=== PATIENT | male | born 1930 | race Caucasian/White ===

== ENCOUNTER 2017-01-17 18:06 | Emergency (ER) | payer OTHER ==
[~2017-01-17] VITALS: Ht 172.7 cm; Wt 63.5 kg
[~2017-01-17 18:06] MED LIST: ALLOPURINOL300 MG PO; B-125000 MC2 PO; FLOVENT HFA12 GM INH; FLUDROCORTISON0.1 MG PO; FUROSEMIDE40 MG PO; KLOR-CON 1010 MEQ PO; LIPITOR40 MG PO; MAGNESIUM400 M1 PO; METOPROLOL SUCC25 MG PO; NITROSTAT0.4 MG SL; PRESERVISION L1 EACH PO; VENTOLIN HFA18 GM INH; VITAMIN D32000 UNIT PO; XARELTO20 MG PO
== END 2017-01-17 20:02 | disposition home or self-care (01) ==
LOC: ED 18:06
DX: K40.90 Unilateral inguinal hernia, without obstruction or gangrene, not specified as recurrent (principal); I25.2 Old myocardial infarction; I48.91 Unspecified atrial fibrillation; J44.9 Chronic obstructive pulmonary disease, unspecified; Z79.899 Other long term (current) drug therapy; Z79.51 Long term (current) use of inhaled steroids
CPT/HCPCS: 99283

== ENCOUNTER 2017-03-02 05:45 | Day surgery (SDC) | payer OTHER ==
[~2017-03-02] VITALS: Ht 170.2 cm; Wt 63.5 kg
[2017-03-02] MEDS ORDERED: MAPAP325 MG PO (09:04)
[2017-03-02] MEDS ORDERED: HYDROCODON-ACE1 EA10 PO (09:05)
--- NOTE | 2017-03-07 12:15 | OR ---
[facility] [address] [place], [place] [address] Signed DATE OF PROCEDURE: 03/02/17 PREOPERATIVE DIAGNOSES Reducible right inguinal hernia (severely symptomatic). Severe cardiac dysfunction including atrial fibrillation. POSTOPERATIVE DIAGNOSIS Right inguinal hernia (indirect with attenuation of floor). PROCEDURE PERFORMED Repair of right inguinal hernia including excision of high ligation of sac and implantation of Prolene mesh (underlay technique). SURGEON: Dahlia Nieves MD. ANESTHESIA General endotracheal (Thang Gonzalez CRNA) and local 20 mL of 0.25% Marcaine with epinephrine. INDICATION This 87-year-old white man is recently here from [place], [place] whose primary care provider is Dillan Edwards D.O. in [place], [place] and deputy program manager, Eddie Helms in [place], [place]. The patient has developed a very significant right inguinal hernia, which is very symptomatic to him. He was seen on an urgent walk-in basis on January 25, 2017. Hernia was found to be reducible and a fair amount of his severe symptoms had resolved. He does not have typical urinary outlet obstructive symptoms though has in the past. The patient has exercise related angina, at least 2 episodes a month for which he takes nitroglycerin. He also has chronically anticoagulated with Xarelto for history of atrial fibrillation. He has undergone a preoperative anesthesia evaluation anticipating right inguinal hernia repair. A copy of an echocardiogram performed at [facility] in [place], [place] from November 18, 2016, was reviewed, which did show moderate concentric left ventricular hypertrophy and a left ventricular ejection fraction of only 20%. There was global hypokinesis of the left ventricle as well. The left and right atria were dilated also. Gi denver the patient's symptomatic hernia, consideration has been made for repair mindful of increased risk of the operation. He has undergone preoperative anesthesia evaluation and was deemed most appropriate to use general anesthesia rather than regional one considering the hypotensive effect of a regional anesthetic. He and his understand Electronically Signed By: DAHLIA NIEVES MD 03/07/17 1215 PATIENT NAME: HUSSAIN GONZALEZ OPERATIVE REPORT DATE OF : [birth year] PHYSICIAN: DAHLIA NIEVES MD REPORT #: [id number] REPORT IS CONFIDENTIAL AND NOT TO BE RELEASED WITHOUT AUTHORIZATION [address] [address] Signed well the risks of bleeding, infection, recurrent hernia, and more importantly cardiovascular problems related to hernia repair. Understand this they wish to proceed. FINDINGS Induction and maintenance of anesthesia during the operation went without incident. He was found to have a moderate-sized indirect hernia sac without a sliding component or incarcerated viscus as well as attenuation of the floor. The operation consisted of high ligation and excision of the sac as well as implantation of Prolene mesh in an underlay technique in the floor. DESCRIPTION OF PROCEDURE The patient was brought to the operating room, given a general endotracheal anesthetic. Preoperative antibiotic Ancef was given. Sequential compression device stockings were used. Preoperative subcutaneous heparin was administered. Notably, he has been off his Xarelto for 48 hours. The lower abdomen and groin were clipped and prepared with a Chlorhexidine solution and draped sterilely. An incision was made cephalad to the pubic tubercle and dissection carried through the subcutaneous tissue with electrocautery. The external oblique was incised along its fibers, opening the external ring. The external oblique fascia was dissected free from the cord and ilioinguinal nerve within the cremasteric muscle fibers of the cord was dissected free and reflected inferiorly around the external oblique protecting it from harm. The cord was mobilized from the floor with blunt and electrocautery dissection and encircled with a [place] drain. Using blunt dissection, the hernia sac was identified in the medial aspect of the cord, it was dissected free from the cord structures with meticulous care, ultimately isolated at its neck. It was opened and found to have no sign of sliding component or incarcerated viscus. Two 0 silk suture was used to ligate the neck of the hernia sac doubly applied and hernia sac amputated and passed for pathology. The floor of the inguinal canal was attenuated. An Allis clamp was applied to the tendon of the transversus abdominis. Using electrocautery, the floor was incised and using blunt dissection the properitoneal fat was free. A segment of Prolene mesh was cut to the appropriate configuration and secured in an underlay technique with interrupted 2-0 Prolene sutures. A defect was cut in the graft to accommodate the cord and the tails of the graft were secured laterally taking special care to avoid incorporation of the ilioinguinal nerve or other important structures. A 20 mL of 0.25% Marcaine with epinephrine was injected locally. The cord was replaced into the canal as was the ilioinguinal nerve. The external oblique was reapproximated with running 2-0 Vicryl suture. Cirilo's layer was reapproximated with interrupted 2-0 Vicryl and skin closed with running subcuticular 3-0 Vicryl. Steri-Strips were applied as was a Mepilex silver sponge dressing and an OpSite. The patient was allowed to emerge from anesthesia, was extubated and transferred to recovery room in good condition, Electronically Signed By: DAHLIA NIEVES MD 03/07/17 1215 PATIENT NAME: HUSSAIN GONZALEZ OPERATIVE REPORT DATE OF : [birth year] PHYSICIAN: DAHLIA NIEVES MD REPORT #: [id number] REPORT IS CONFIDENTIAL AND NOT TO BE RELEASED WITHOUT AUTHORIZATION [address] [place] [address] Signed having suffered no known complications. Sponge, needle, and instrument counts reported as correct x3. MD NELDA Coles/Rico /[id number] cc: Eddie Helms M.D. [address] [facility] [address] [place] [address] Dillan Edwards D.O. [address] [place] [address] Electronically Signed By: DAHLIA NIEVES MD 03/07/17 1215 PATIENT NAME: HUSSAIN GONZALEZ OPERATIVE REPORT DATE OF : [birth year] PHYSICIAN: DAHLIA NIEVES MD REPORT #: [id number] REPORT IS CONFIDENTIAL AND NOT TO BE RELEASED WITHOUT AUTHORIZATION
== END 2017-03-02 12:45 | disposition home or self-care (01) ==
LOC: DS 05:45
PROVIDERS: Surgery
PROC: 0YU50JZ Supplement Right Inguinal Region with Synthetic Substitute, Open Approach (ICD-10-PCS; principal; 2017-03-02 06:45)
DX: K40.90 Unilateral inguinal hernia, without obstruction or gangrene, not specified as recurrent (principal); J44.9 Chronic obstructive pulmonary disease, unspecified; M10.9 Gout, unspecified; I50.9 Heart failure, unspecified; I48.2 Chronic atrial fibrillation; N40.1 Benign prostatic hyperplasia with lower urinary tract symptoms; N13.8 Other obstructive and reflux uropathy; F17.210 Nicotine dependence, cigarettes, uncomplicated; Z98.1 Arthrodesis status
CPT/HCPCS: 00830; C1781; J0690; J1644; J2370; J2405; J3010; J7120

== ENCOUNTER 2017-06-21 13:43 | Emergency (ER) | payer OTHER ==
[~2017-06-21] VITALS: Ht 170.2 cm; Wt 63.5 kg
[~2017-06-21 13:43] MED LIST changes: +HYDROCODON-ACE1 EA10 PO; +MAPAP325 MG PO
[2017-06-21] MEDS ORDERED: FLOMAX0.4 MG PO (13:57)
[2017-06-21] MEDS ORDERED: XARELTO20 MG PO (13:58)
[2017-06-21] MEDS ORDERED: LASIX40 MG PO (15:27)
[2017-06-21] MEDS ORDERED: K-TAB ER20 MEQ PO (15:28)
--- NOTE | 2017-06-22 21:45 | EKG ---
[facility] [address] [facility] [place] [address] Signed Sinus rhythm with 1st degree AV block Left axis deviation Nonspecific intraventricular block Abnormal ECG When compared with ECG of 15-FEB-2017 13:02, No significant change was found Confirmed by KEVEN LOCO MD ([id number]) on 06/22/2017 9:44:54 PM Electronically Signed By: KEVEN LOCO MD 06/22/17 2145 PATIENT NAME: HUSSAIN GONZALEZ Electrocardiogram DATE OF : [birth year] PHYSICIAN: KEVEN LOCO MD REPORT #: [id number] REPORT IS CONFIDENTIAL AND NOT TO BE RELEASED WITHOUT AUTHORIZATION
== END 2017-06-21 15:42 | disposition home or self-care (01) ==
LOC: ED 13:43
DX: I50.9 Heart failure, unspecified (principal); J44.9 Chronic obstructive pulmonary disease, unspecified; I25.2 Old myocardial infarction; I48.91 Unspecified atrial fibrillation; F17.200 Nicotine dependence, unspecified, uncomplicated; Z95.5 Presence of coronary angioplasty implant and graft; Z98.890 Other specified postprocedural states; Z79.01 Long term (current) use of anticoagulants; Z79.899 Other long term (current) drug therapy
CPT/HCPCS: 71010; 80053; 83735; 83880; 84484; 85025; 93005; 93010; 96374; 99283

== ENCOUNTER 2017-07-30 08:16 | Inpatient (IN) | payer MEDICARE ==
[~2017-07-30] VITALS: Ht 170.2 cm; Wt 65.5 kg
[~2017-07-30 08:16] MED LIST changes: +FLOMAX0.4 MG PO; +K-TAB ER20 MEQ PO; +LASIX40 MG PO; +LIPITOR20 MG PO
--- NOTE | 2017-07-30 13:00 | NUR ---
PT TRANSFERED TO MED/SURG. PT STAND PIVOT TO BED. PT ON 2L NC, O2 SATS 98%, WENAED TO 1L, LUNG SOUNDS WITH EXPIRATORY WHEEZE TO LEFT LOBES AND COARSE CRACKLES TO RIGHT LOBES. PT DENIES PAIN. PT NPO CURRENTLY FOR ECHO. PT WITH IV ACCESS TO RIGHT FOREARM, SALINE LOCKED. PT ON TELEMETRY #5, SINUS RHYTHM, HEART MURMUR NOTED. PT WITHOUT EDEMA, CMS INTACT. DUST COLLECTOR ORE CRUSHING AT BEDSIDE. PT DENIES NEEDS AT THIS TIME. ADMISSION INTAKE COMPLETED.
--- NOTE | 2017-07-30 15:30 | NUR ---
PT ASSISTED TO BATHROOM AND BACK TO BED. PT VOIDING WITHOUT DIFFICULTY. PT DENIES NEEDS AT THIS TIME. FAMILY AT BEDSIDE.
--- NOTE | 2017-07-30 15:55 | NUR ---
PT IS RESTING IN BED AND VISITING WITH FAMILY. PT HAS NO NEEDS AT THIS TIME. CALL LIGHT IS IN REACH.
--- NOTE | 2017-07-30 16:57 | NUR ---
PT ASSISTED TO BATHROOM AND BACK TO BED. PT ON 1L NC, LUNG SOUNDS WITH CRACKLES TO BASES, EXPIRATORY WHEEZE TO LEFT UPPER LOBE. PT ITHOUT EDEMA TO BLE. PT TOLERATING CARDIAC DIET, DENIES NAUSEA. PT DENIES OTHER NEEDS AT THIS TIME.
[2017-07-30] MEDS ORDERED: TYLENOL EXTRA500 MG PO (17:01)
[2017-07-30] MEDS ORDERED: CITRUCEL500 MG PO (17:06)
[2017-07-30] MEDS ORDERED: VITAMIN C1000 MG PO (17:07)
--- NOTE | 2017-07-30 17:38 | NUR ---
PT ADMITTED THIS AFTERNOON FROM ED. PT WEANED TO ROOM AIR, LUNG SOUNDS WITH CRACKLES AND WHEEZES. PT GIVEN IV LASIX, GOOD URINE OUTPUT. PT TOLERATING CARDIAC DIET, FLUID RESTRICTION. PT UP WITH 1PA TO BATHROOM, CALLING APPROPRIATLEY. SALINE LOCKED.
--- NOTE | 2017-07-30 19:10 | NUR ---
SHIFT REPORT RECIEVED. PATIENT RESTING IN BED WATCHING TV. HE DENIES NEEDS AT THIS TIME. HE AGREES TO CALL FOR ASSISTANCE IF HE NEEDS TO GET UP. CALL LIGHT IN REACH.
--- NOTE | 2017-07-30 21:39 | EKG ---
[facility] [address] [facility] [place] [address] Signed Normal sinus rhythm with sinus arrhythmia Right superior axis deviation Nonspecific intraventricular block Abnormal ECG When compared with ECG of 21-JUN-2017 13:45, TX interval has decreased Confirmed by AMIRA HUTCHINSON MD ([id number]) on 07/30/2017 9:39:05 PM Electronically Signed By: AMIRA HUTCHINSON MD 07/30/17 2139 PATIENT NAME: HUSSAIN GONZALEZ Electrocardiogram DATE OF : [birth year] PHYSICIAN: AMIRA HUTCHINSON MD REPORT #: [id number] REPORT IS CONFIDENTIAL AND NOT TO BE RELEASED WITHOUT AUTHORIZATION
--- NOTE | 2017-07-30 21:45 | NUR ---
EVENING MEDS GIVEN PER ORDER. PATIENT RESTING IN BED WATCHING TV. DENIES PAIN OR NAUSEA. NO SOB. 2L NC, O2 SAT 98%. LUNGS HAVE EXPIRTORY WHEEZE THROUGHOUT, SLIGHTLY DIMINISHED IN THE BASES. PATIENT HAS A COUGH, REQUEST PRN MUCINEX WHICH WAS GIVEN. ABD IS ROUND, SOFT, NONTENDER WITH ACTIVE BOWEL SOUNDS. LAST REPORTS BM YESTERDAY. CMS INTACT. SKIN IS GROSSLY INTACT, BUT DRY. LOTION APPLIED. PATIENT REQUESTING SNACKS, WHICH WERE PROVIDED. NO OTHER NEEDS AT THIS TIME. PATIENT AGREES TO CALL FOR ASSISTANCE PRIOR TO EXITING THE BED. CALL LIGHT IN REACH.
--- NOTE | 2017-07-30 23:15 | NUR ---
PATIENT REQUESTING MORE SNACKS. GRAM CRACKERS PROVIDED PER [employer]. SHREE SEPTEMBER ASSISTED THE PATIENT.
--- NOTE | 2017-07-31 02:11 | NUR ---
HELPED PT TO THE BATHROOM AND BACK TO BED.O2 PUT BACK ON AND CALL LIGHT GIVEN BEDSIDE TABLE WITHIN REACH.
--- NOTE | 2017-07-31 02:20 | NUR ---
PATIENT RESTING IN BED. LAYING ON LEFT SIDE. BREATHING IS REGULAR AND NONLABORED. RIGHT LOBES ARE CLEAR, DIMINISHED LEFT LOBES. 2L NC, O2 SAT 94%. CALL LIGHT IN REACH.
--- NOTE | 2017-07-31 06:53 | NUR ---
PATIENT UP TO BATHROOM. MORNING VS COMPLETE. PATIENT WAS SLEEPING WITH NC NOT IN HIS NOSE. O2 SAT 92%. PLACED NC BACK IN NOSE, 1L. PATIENT DENIES PAIN. EXPIRTORY WHEEZE HEARD THROUGHOUT LUNGS. NO NAUSEA. BREAKFAST ORDER RECIEVED. MORNING WEIGHT PERFORMED. NO OTHER NEEDS AT THIS TIME.
--- NOTE | 2017-07-31 06:58 | NUR ---
PATIENT RESTED WELL THROUGHOUT THE NIGHT. SBA TO BATHROOM. 1500ML FLUID RESTRICTION. PATIENT DENIES PAIN OR NAUSEA. 1-2L NC. LUNGS HAVE EXPIRTORY WHEEZE THROUGHOUT. ENCOURAGED DEEP BREATH AND COUGH, IS. TELE #5 IN USE.
--- NOTE | 2017-07-31 07:00 | NUR ---
BEDSIDE HANDOFF REPORT RECEIVED FROM SPA TECHNICIAN RN. PT RESTING IN BED. PT DENIES NEEDS AT THIS TIME. DISCUSSED PLAN OF CARE AND INCREASED ACTIVITY TODAY.
--- NOTE | 2017-07-31 07:05 | NUR ---
BEDSIDE HANDOFF REPORT RECEIVED FROM CHIEF WHEELAGE CLERK RN. PT SLEEPING, LEFT UNDISTURBED.
--- NOTE | 2017-07-31 08:30 | NUR ---
PT RESTING IN BED, EATING BREAKFAST. PT ON 2L NC, LUNG OUNDS WITH EXPIRATORY WHEEZE, COARSE CRACKLES TO RIGHT LOWER. PT TOLERATING CARDIAC DIET, 1500 ML FLUID RESTRICTION, DENIES NAUSEA. CMS INTACT, WITHOUT EDEMA, PULSES PALPABLE. BOWEL TONES ACTIVE. PT ON TELE #5, SINUS RHYTHM. DISCUSSED PLAN OF CARE FOR THE DAY. RESPIRATORY THERAPY TO BEDSIDE FOR TREATMENT. PT DENIES OTHER NEEDS AT THIS TIME.
--- NOTE | 2017-07-31 12:15 | NUR ---
PT RESTING IN BED, EATING LUNCH. PT LUNG SOUNDS WITH COARSE CRACKLES TO BASES, EXPIRATORY WHEEZE TO RIGHT LOWER LOBE. IV LASIX GIVEN. PT INDEPENDENT IN ROOM. NO ACUTE CHANGES. PT DENIES NEEDS AT THIS TIME.
--- NOTE | 2017-07-31 18:25 | NUR ---
PT ON 2L NC, LUNG SOUNDS WITH EXPIRATORY WHEEZE, COARSE CRACKLES, PT RECEIVING BID NEBS. PT GIVEN 20 MG IV LASIX X2, URINE OUTPUT QS. PT TOLERATING CARDIAC DIET, 1500 ML FLUID RESTRICTION, TOLERATING WELL. PT DENIES PAIN. CMS INTACT, WITHOUT EDEMA. NEW IV STARTED TO LEFT FOREARM. PT UP INDEPENDENTLY IN ROOM. DAILY WEIGHT.
--- NOTE | 2017-07-31 19:07 | NUR ---
RECEIVED REPORT FROM RN. PATIENT RESTING COMFORTABLY IN BED, BREATHING IS EVEN AND UNLABORED ON 2L O2 VIA NC. DENIES NEEDS AT THIS TIME. CALL LIGHT WITHIN REACH.
--- NOTE | 2017-07-31 21:01 | NUR ---
PATIENT RESTING COMFORTABLY IN BED, BREATHING IS EVEN AND UNLABORED ON 1L O2 VIA NC. PATIENT DENIES NEEDS AT THIS TIME. ASSESSMENT DONE, MEDICATIONS GIVEN. CALL LIGHT WITHIN REACH.
--- NOTE | 2017-07-31 23:09 | NUR ---
PATIENT RESTING COMFORTABLY IN BED, BREATHING IS EVEN AND UNLABORED. CALL LIGHT WITHIN REACH.
--- NOTE | 2017-08-01 00:27 | NUR ---
PATIENT SITTING ON EDGE OF BED AND STATES "I CAN'T SLEEP." HE STATES THAT HE FEELS HUNGRY. PROVIDED LOW SODIUM SOUP. DENIES FURTHER NEEDS. CALL LIGHT WITHIN REACH.
--- NOTE | 2017-08-01 01:30 | NUR ---
PATIENT REPORTS DIFFICULTY BREATHING. UPON ENTERING ROOM, PATIENT IS LAYING SUPINE IN BED. EXPIRATORY AND INSPIRATORY WHEEZES HEARD THROUGHOUT ALL LUNG CRONIN, O2 SATURATION IS 90% ON 1L O2 VIA NC. PRN ALBUTEROL TREATMENT ADMINISTERED, HEAD OF BED ELEVATED. PATIENT IS NOW RESTING COMFORTABLY IN BED, BREATHING IS EVEN, RESPIRATORY RATE IS 22. PATIENT STATES "I FEEL A LITTLE BETTER NOW. THAT TREATMENT SEAMED TO HELP." EDUCATED PATIENT ABOUT SLEEPING WITH HEAD OF BED ELEVATED FOR BREATHING COMFORT. DENIES FURTHER NEEDS. ASSESSMENT AND VITALS DONE. CALL LIGHT WITHIN REACH.
--- NOTE | 2017-08-01 03:39 | NUR ---
PATIENT RESTING COMFORTABLY IN BED, BREATHING IS EVEN AND UNLABORED ON 1L O2 VIA NC. PATIENT STATES "I AM HAVING A HARD TIME SLEEPING. THIS HAS BEEN GOING ON FOR A LITTLE OVER A YEAR NOW. I TAKE LONG NAPS DURING THE DAY AND THAT SEEMS TO WORK FOR ME." DENIES NEED FOR EAR PLUGS, EYE MASK, OR WHITE NOISE MACHINE. DENIES NEEDS AT THIS TIME. CALL LIGHT WITHIN REACH.
--- NOTE | 2017-08-01 04:37 | NUR ---
PATIENT'S NIGHT WAS UNEVENTFUL. HE HAS BEEN RESTING OFF AND ON THROUGHOUT SHIFT. VSS, URINE OUTPUT QS. NO COMPLAINTS OF PAIN. PATIENT BECOMES SHORT OF BREATH EASILY AND REQUIRED 1 PRN ALBUTEROL TREATMENT, WHICH HE RESPONDED WELL TO. TITRATED O2 TO 1L AT BEGINNING OF SHIFT, HE HAS TOLERATED THIS TITRATION WELL WITH O2 SATURATION REMAINING BETWEEN 90 AND 92%. LUNGS HAVE EXPIRATORY AND INSPIRATORY WHEEZES, NO CRACKLES NOTED THIS SHIFT. NO EDEMA IN EXTREMITIES. NO ACUTE CHANGES FROM BEGINNING OF SHIFT.
--- NOTE | 2017-08-01 06:15 | NUR ---
PATIENT RESTING COMFORTABLY IN BED, BREATHING IS EVEN AND UNLABORED. DENIES NEEDS AT THIS TIME. ASSESSMENT DONE. CALL LIGHT WITHIN REACH.
--- NOTE | 2017-08-01 07:15 | NUR ---
BEDSIDE HANDOFF REPORT RECEIVED FROM JAVA J2EE LEAD RN. PT SLEEPING LEFT UNDISTURBED.
--- NOTE | 2017-08-01 08:19 | NUR ---
PT RESTING IN BED. PT WITH GOOD APPETITE, ATE 100% OF BREAKFAST. PT WITH COUGHING FIT, PRODUCTIVE COUGH, LUNG SOUNDS WITH EXPIRATORY WHEEZE AND COARSE CRACKLES THROUGHOUT, ON 1L NC, O2 SATS 96%, RT TO BEDSIDE FOR NEBS, PT GIVEN MUCINEX. PT DENIES PAIN. BOWEL TONES ACTIVE. PT PROVIDED WITH WATER, 1500 ML FLUID RESTRICTION. IV FLUSHED, PATENT, IV LASIX GIVEN. NICOTINE PATCH PLACED TO LEFT ARM. PT WITHOUT EDEMA, CMS INATCT. DISCUSSED PLAN OF CARE WITH PT, ENCOURAGED OOB ACTIVITY, WALKING IN [place], ATTEMPTING TO WEAN O2. PT DENIES OTHER NEEDS AT THIS TIME.
--- NOTE | 2017-08-01 11:15 | NUR ---
PT ASSISTED TO WALK IN [place]. PT ABLE TO AMBULTE APPROXIMATELY 100 FEET BEFORE TIRING. PT ASSISTED BACK TO BED. PT DENIES OTHER NEEDS AT THIS TIME. PT PROVIDED EDUCATION ON CHF, DISCUSSED WHY EDEMA HAPPENS.
--- NOTE | 2017-08-01 13:14 | NUR ---
PT SITTING ON EDGE OF BED. FAMILY AT BEDSIDE. IV FLUSHED, IV LASIX GIVEN. PT DENIES OTHER NEEDS AT THIS TIME.
--- NOTE | 2017-08-01 13:33 | NUR ---
PT'S VS AND I&O'S TAKEN AND DOCUMENTED. PT IS RELAXING IN BED WATCHING TV. PT HAS NO OTHER NEEDS AT THIS TIME. INFORMED PT TO CALL IF HE THINKS OF ANYTHING. CALL LIGHT IS IN REACH.
--- NOTE | 2017-08-01 14:10 | NUR ---
PT RESTING IN BED, NAPPING. LUNG SOUNDS WITH EXPIRATORY WHEEZE THROUGHOUT, PT ON 3L NC, PT DOES NOT APPEAR TO BE IN RESP DISTRESS. BOWLE TONES ACTIVE, TOLERATING FLUID RESTRICTION. PT WITHOUT EDEMA. NO ACUTE CHANGES. PT ALLOWED TO REST, DENIES OTHER NEEDS AT THIS TIME.
--- NOTE | 2017-08-01 14:31 | NUR ---
PT ON 3L NC, O2 SATS 94% WEANED TO 1L NC. PT RESTIGN COMFORTABLY IN BED. DENIES OTHER NEEDS AT THIS TIME.
--- NOTE | 2017-08-01 15:51 | NUR ---
PT RESTING IN BED. PT O2 SATS 95% ON ROOM AIR, PLACED BACK ON 1L NC, O2 SATS UP TO 91%. PT DENIES NEEDS AT THIS TIME.
--- NOTE | 2017-08-01 17:16 | NUR ---
ATTEMPTED TO WEAN TO ROOM AIR, DESATS TO MID 80'S, 1L NC, LUNG SOUNDS WITH COARSE CRACKLES THIS MORNING, EXPIRATORY WHEEZE THIS EVENING. PT WALKED IN THE [place] TWICE, SHORT DISTANCES. PT TOLERATING CARDIAC DIET, FOLLWOING 1500 ML FLUID RESTRICTION. PT DENIES PAIN. TESSALON PERLES AND MUCINEX FOR COUGH, QID NEBS. PT UP INDEPENDENT IN ROOM. IV LASIX GIVEN X2, VOIDING QS.
--- NOTE | 2017-08-01 17:47 | NUR ---
PT'S VS AND I&O'S TAKEN AND DOCUMENTED. PT IS RESTING IN BED WATCHING TV. PT HAS NO NEEDS AT THIS TIME. PT AWARE TO CALL IF HE NEEDS ANYTHING. CALL LIGHT IS IN REACH.
--- NOTE | 2017-08-01 20:07 | NUR ---
Watching tv, O2 1L NC, no c/o resp distress, no requests, no c/o pain. Independent. Coop with assessment
--- NOTE | 2017-08-01 22:50 | NUR ---
RECEIVED REPORT FROM ASHLEY BELLE.
--- NOTE | 2017-08-01 23:12 | NUR ---
PATIENT RESTING COMFORTABLY IN BED, BREATHING IS EVEN AND UNLABORED ON 1L O2 VIA NC. DENIES NEEDS AT THIS TIME. CALL LIGHT WITHIN REACH.
--- NOTE | 2017-08-02 00:17 | NUR ---
PATIENT RESTING COMFORTABLY IN BED, BREATHING IS EVEN AND UNLABORED. CALL LIGHT WITHIN REACH.
--- NOTE | 2017-08-02 02:00 | NUR ---
PATIENT RESTING COMFORTABLY IN BED, BREATHING IS EVEN AND UNLABORED. CALL LIGHT WITHIN REACH.
--- NOTE | 2017-08-02 03:55 | NUR ---
PATIENT RESTING COMFORTABLY IN BED, BREATHING IS EVEN AND UNLABORED. CALL LIGHT WITHIN REACH.
--- NOTE | 2017-08-02 05:47 | NUR ---
PATIENT RESTING COMFORTABLY IN BED, BREATHING IS EVEN AND UNLABORED ON 1L O2. DENIES NEEDS AT THIS TIME. CALL LIGHT WITHIN REACH.
--- NOTE | 2017-08-02 06:59 | NUR ---
PATIENT'S NIGHT WAS UNEVENTFUL. HE HAS BEEN RESTING THROUGHOUT SHIFT. VSS, URINE OUTPUT QS, NO COMPLAINTS OF PAIN. LUNGS HAVE EXP. WHEEZES THROUGHOUT, WEARS 1L O2 AT NIGHT. HAS NOT HAD BM SINCE 07/28/17, NIO BOWEL ROUTINE INITIATED. IND. IN ROOM. NO ACUTE CHANGES.
--- NOTE | 2017-08-02 07:50 | NUR ---
SALES EXEC IN ROOM WITH PATIENT. PATIENT SITTING ON EDGE OF BED EATING BREAKFAST. CALL BUTTON IN REACH. NO OTHER NEEDS AT THIS TIME.
--- NOTE | 2017-08-02 07:52 | NUR ---
BEDIDE RPEORT. PT RESTING IN BED, OXYGEN OFF. PT ALERT TO NURSES AT BEDSIDE. OXYGEN REPLACED ON PT 1L PER .N.C. PT REPORTS HE WOULD LIKE A SHOWER THIS AM AFTER BREAKFAST. NO OTHER REQUESTS THIS AM
--- NOTE | 2017-08-02 09:30 | NUR ---
FINA RESTING IN BED. RN AND SCUBA DIVING INSTRUCTOR IN ROOM TO PASS MEDICATION AND TAKE VITALS. CALL BUTTON IN REACH. FRESH ICE WATER GIVEN. NO OTHER NEEDS AT THIS TIME.
--- NOTE | 2017-08-02 09:44 | NUR ---
MORNING ASSESSMENT DONE AND MEDS PASSED. PT IN BED VISITING WITH FRIEND. PT ADVISED TO USE CALL LIGHT WHEN HE WANTS TO GET UP R/T IV LASIX. PT FINISHED WITH BREAKFAST. PT DENIES PAIN. PT HAS NO FURTHER REQUESTS OR COMPLAINTS AT THIS TIME.
--- NOTE | 2017-08-02 09:55 | NUR ---
PATIENT RESTING IN BED. VISITOR IN ROOM WITH PATIENT. PATIENT DONE WITH BREAKFAST. CALL BUTTON IN REACH. BREAKFAST TRAY REMOVED. NO OTHER NEEDS AT THIS TIME.
--- NOTE | 2017-08-02 11:54 | NUR ---
SOLUMEDROL ORDER PLACED BY . ORDER REVIEWED. SOLUMEDROL GIVEN ORDERED (SEE MAR). PT ASSESSEMENT DONE. PT REPORTS NO PAIN AND STATES HE FEELS "ABOUT THE SAME." PT FINISHED WITH LUNCH. PT WATCHIGN TV. NO REQUESTS OR COMPLAINTS AT THIS TIME.
--- NOTE | 2017-08-02 12:56 | NUR ---
LASIX DUE. GIVEN TO PT ORDERED (SEE MAR). PT SITTING ON THE EDGE OF BED. RT AT BEDSIDE, PERFORMING NEBULIZER AND ROOM AIR TREATMENT. RT PLANS TO TAKE PT FOR A SHORT WALK. PT AND RT ADVISED THAT IV LASIX MAY MAKE PT DIZZY OR LIGHT HEADED. PT VERBALIZES UNDERSTANDING AND STATES HE WILL NOTIFY RT RIGHT AWAY IF HE STARTS TO FEEL DIZZY. AT BEDSIDE.
--- NOTE | 2017-08-02 12:56 | NUR ---
RT IN ROOM WITH PATIENT FOR NEB TREATMENT.
--- NOTE | 2017-08-02 14:32 | NUR ---
CHECKED IN ON PT. PT RESTING WITH EYES CLOSED. CHEST RISE AND SNORING NOTED. BED RAILS UP. CALL LIGHT WITHIN REACH.
--- NOTE | 2017-08-02 14:32 | NUR ---
PATIENT RESTING IN BED WITH EYES CLOSED. PATIENT SEEMED TO BE IN A DEEP SLEEP. THIS BARREL BANDER DID NOT WAKE HIM UP TO SHOWER. CALL BUTTON IN REACH.
--- NOTE | 2017-08-02 14:43 | NUR ---
PT CALL LIGHT ON. PT UP TO RESTROOM. BACK TO BED WITHOUT INCIDENT. VITALS TAKEN. PT STATES NO REQUESTS OR COMPLAINTS AT THIS TIME. BED RAILS UP. CALL LIGHT WITHIN REACH.
--- NOTE | 2017-08-02 15:41 | NUR ---
PT REPORTED NUMBNESS AND DROLLING IN MOUTH. CONSULTED WITH PRIMARY NURSE WHO REPORTED IT WAS A TESLON PERLES HE HELD IN HIS MOUTH TOO LONG. INFORMED THE PT IT WAS NORMAL. PT REPORTS NO OTHER NEEDS AT THIS TIME. CALL LIGHT WITHIN REACH.
--- NOTE | 2017-08-02 16:31 | NUR ---
1600 ASSESSMENT DONE AND MEDICAITONS GIVEN. PT REPORTS THAT HE STILL HAS NOT HAD A BOWEL MOVMENT. PT AGREES TO SUPPOSITORY (GIVEN ORDERED, SEE MAR). PT REPORTS "MY TOUNG IS NUMB BECAUSE I HELD THAT LAST MEDICATION (BENSONATE) IN MY MOUTH INSTEAD OF SWOLLOWING IT." PT ADVISED TO SWOLLOW HIS PILLS RIGHT AWAY THIS TIME. PT MOUTH CHECK. PILLS SWOLLOWED. PT UP TO RESTROOM, PT INCERTS SUPPOSITORY ON HIS OWN. PT BACK TO BED. O2 IN PLACE. BED RAILS UP. CALL LIGHT WITHIN REACH. PT WATCHING TV. MAGAZINES PROVIDED PER PT REQUEST "SO I CAN READ WHEN I'M ON THE TOILET."
--- NOTE | 2017-08-02 17:30 | NUR ---
PT HERE FOR COPD EXACERBATION. PT ON 1L O2 BY NC, FAILED ROOM AIR TEST TODAY. EXPIRATORY WHEEZES NOTED IN ALL FOUR QUADRANTS. IV LASIX GIVEN TODAY X2. NEBULIZER TREATEMENTS GIVEN BY RT ORDERED. VOIDING QUANTITY SUFFICIENT. PT ADHERING TO 1500 FLUID RESTRICTION. LAST BM 07/28. NEW ORDERS FOR SENNA, MIRALAX, AND PRN BISOCODYL SUPPOSITORIES, ALL THREE GIVEN TODAY. SKIN, WNL. PT HX OF AFIB, AND ANGINA, NO ISSUES TODAY.
--- NOTE | 2017-08-02 18:00 | NUR ---
PATIENT RESTING IN BED. OFFERED PATIENT A SHOWER. PATIENT STATED THAT HE WILL WAIT UNTIL TOMORROW BECUASE HE IS WARN OUT. CALL BUTTON IN REACH. NO OTHER NEEDS AT THIS TIME.
--- NOTE | 2017-08-02 18:29 | NUR ---
THIS RN CHECKED IN ON PT. PT FINISHED WITH DINNER. FRIEND AT BEDSIDE (DELIVERED PIE FOR DESSERT). PT STATES HE HAD A BM AT 6:00 ("A BIG ONE"). PT RESTING IN BED, VISITING WITH FRIEND. FORK PROVIDED. NO ADDITIONAL REQUESTS OR COMPLAINTS AT THIS TIME. PT REMAINS ON 1L O2 BY MS.
--- NOTE | 2017-08-02 19:20 | NUR ---
IN ROOM FOR REPORT, PT IS AWAKE IN BED WITH VISITOR IN THE ROOM. HE HAS NO REQUESTS AT THIS TIME.
--- NOTE | 2017-08-02 21:10 | NUR ---
PT REQUESTED 2 PUDDINGS, EACH OF LENKA, AND VANILLA WELL JORDAN CRACKERS.
--- NOTE | 2017-08-02 22:30 | NUR ---
PT IS AWAKE IN BED, RESPIRATIONS CLEAR WITH DIM BASES ON 1 LNC. PT IS A 1PA WITH FWW. PT HAS NO EDEMA AND NO COMPLAINTS OF PAIN.
--- NOTE | 2017-08-03 00:24 | NUR ---
PT IS AWAKE IN BED WATCHING TV RECEIVING A RESPIRATORY TREATMENT. CALL LIGHT WITHIN REACH.
--- NOTE | 2017-08-03 02:45 | NUR ---
PT IS RESTING WITH EYES CLOSED, RESPIRATIONS EVEN AND NONLABORED. CALL LIGHT WITHIN REACH.
--- NOTE | 2017-08-03 03:51 | NUR ---
PT IS RESTING WITH EYES CLOSED, RESPIRATIONS EVEN AND NONLABORED. CALL LIGHT IS WITHIN REACH.
--- NOTE | 2017-08-03 05:22 | NUR ---
PT SLEPT WELL THROUGH THE NIGHT ON 1 LNC. PT RECEIVING NEB TREATMENTS, LUNG SOUNDS ARE CLEAR/DIM. PT IS VOIDING QS AND HAS 1500ML/FLUID RESTRICTION. PT DID NOT REQUIRE PAIN MEDS OR NITRO THROUGH THE NIGHT. PT IS INDEPENDENT IN THE ROOM. LAST BM 2-5-18.
--- NOTE | 2017-08-03 07:45 | NUR ---
PT CALL LIGHT ON. PT REQUESTS TO GET UP TO SHOWER. PIV SECURED UNDER PLASTIC FOR SHOWER. SOAP, DELMI, FRESH GOWN PROVIDED. SHOWER CHAIR IN PLACE. PT INDEPENDANT FOR SHOWER. NO ADDITIONAL REQUESTS OR COMPLAINTS.
--- NOTE | 2017-08-03 09:19 | NUR ---
PT FINISHED SHOWER WITHOUT INCIDENT. BACK TO BED. MORNING ASSESSMENT DONE. LUNGS SOUND MORE CLEAR THAT YESTERDAY. MORNING MEDICTIONS GIVEN. PIV NOTED TO BE INFILTRATION. PIV DC'D PER PROTOCOL. ALTERNAT PIV STARTED, WNL. BLOOD RETURN NOTED. PT TOLERATED WELL. RT AT BEDSIDE GIVING NEBULIZER. RN AT BEDSIDE GIVING EDUCATION R/T HEART FAILURE. PT HAS NO REQUESTS OR COMPLAINTS AT THIS TIME.
--- NOTE | 2017-08-03 09:20 | NUR ---
RN REPORTED THAT PATIENT WAS ASSISTED TO SHOWER. ORAL CARE DONE.
--- NOTE | 2017-08-03 09:42 | NUR ---
LATE ENTRY : PT REFUSES TO WEAR O2 WHILE IN SHOWER OR WALKING ARROUND THE ROOM. IMPORTANCE OF CONSISTANT O2 USE DISCUSSED WITH PT. PT VERBALIZES UNDERSTANDING OF IMPORTANCE AND REASONS FOR O2 USE. PT AGREES TO WEAR O2 AND O2 (1L) REAPPLIED WHEN PT BACK IN BED. PT ENCOURAGED TO WEAR O2 ALL THE TIME. CALL LIGHT WITHIN REACH. BED RAILS UP.
--- NOTE | 2017-08-03 10:10 | NUR ---
, RN, AND STUDENT NURSE IN TO SEE PATIENT AND TAKE VITALS. NO NEEDS AT THIS TIME.
--- NOTE | 2017-08-03 10:15 | NUR ---
PATIENT RESTING IN BED WATCHING TV. CALL BUTTON IN IN REACH. NO OTHER NEEDS AT THIS TIME.
--- NOTE | 2017-08-03 10:54 | NUR ---
Heart failure assessment and education: Mr Hernández is in [place] with his to care for a relative with MS. His primary residence is in [facility]. He recently lost his cleaner and trimmer at [place] due to insurance. States his has made an appointment with another cleaner and trimmer but he doesn't know where. He has a basic knowledge of disease process. Given heart failure packet with book, low sodium grocery list, blank medication schedule, and daily wt/symptom log. Does not monitor daily weights anymore. Does own scales in both residents. Encouraged to resume daily practice. Owns pillbox and has effective schedule for medications. Spouse fills weekly pill box and she is the one that knows the reason for each medication. He states he cannot remember them. Has transportation to appointments. Reads well. Wears hearing aides. does most of cooking and shopping. Most meals are fresh and he states he uses NuSalt. Encouraged use of other herbs and Mrs Dash products. Not awaare of early symptoms to report. Will need reinforcement. Spouse not present for this visit. Will try to show heart failure video when is present. Patient given my direct line number and encouraged to call post DC for further information and support for either himself or spouse.
--- NOTE | 2017-08-03 11:04 | NUR ---
THIS RN TO ROOM TO CHECK ON PT. PT RESTING IN BED WITH EYES CLOSED, RR 18 BPM. 1L O2 ON. BED RAILS UP. CALL LIGTH WITHIN REACH.
--- NOTE | 2017-08-03 11:06 | NUR ---
RT CALLED TO COME FOR PULSE OX AND HOME O2 QUALIFICATION. RT STATES THEY WILL COME AT NOON TO GIVEN NEB AND COMPLETE HOME O2 QUALIFICATION ORDERS.
--- NOTE | 2017-08-03 11:24 | NUR ---
NOON ASSESSMENT DONE. PT WATCHING TV AND EATING LUNCH. NO REQUESTS OR COMPLAINTS AT THIS TIME. PT VERBALIZES UNDERSTANDING OF CARE PLAN. BED RAILS UP. CALL LIGHT WITHIN REACH. O2 1L NC IN PLACE.
--- NOTE | 2017-08-03 13:37 | NUR ---
Heart failure daily care and reason for low sodium diet discussed with patient and spouse. She agrees to utilize HF folder logs. Viewed Gisell Keane What is Heart Failure video. confirms that patient has a new cardiology appointment on Aug 21 and PCP visit that same week in [facility]. Possible cardiopulmonary rehab candidate.
--- NOTE | 2017-08-03 14:00 | NUR ---
THIS SR RISK MANAGEMENT CONSULTANT TALKED TO PATIENT ABOUT HIS STAY AND HIS CARE. PATIENT IS HAPPY AND THANKS ME. ROOM PICKED UP. RN CHANGED LINENS. PATIENT HAS NO OTHER NEEDS AT THIS TIME.
--- NOTE | 2017-08-03 14:12 | NUR ---
PT REQUESTS LINEN CHANGE. PT TRANSFERES SELF TO CHAIR. 1 L O2 REMAINS ON. LINEN CHANGE PERFORMED. PT CLAIMS ORAL CARE WAS DONE BY HIMSELF THIS MORENING. PT VISITING WITH CD MIXER HELPER'S NO FURTHER REQUESTS OR COMPLAINTS AT THIS TIME.
--- NOTE | 2017-08-03 16:40 | NUR ---
1700 MEDICATIONS BROUGHT TO PT. PT EATING DINNER. MEDICATION TAKEN ORDERED (SEE MAR). PT STATES HE HAS NOT YET PLACED BREAKFAST ORDER. REQUEST TAKEN AND CALLED TO DIETARY. BED RAILS UP. CALL LIGHT WITHIN REACH. PT HAS NO ADDITIONAL REQUESTS OR COMPLAINTS AT THIS TIME. O2 (1L NC) IN PLACE.
--- NOTE | 2017-08-03 17:20 | NUR ---
PT REPORTS "FEELING BETTER TODAY." LUNG SOUNDS IMPROVED, CLEAR EXCEPT FOR SOME MINOR EXPRATORY WHEEZES IN RLQ. IV LASIX AND SOLUMEDROL GIVEN TODAY. MD PLANS TO MOVE TO ORAL PREDNISONE TOMORROW MORNING IF PROGRESS IS GOOD. HEART SOUNDS WNL WITH REGULAR RATE AND RHYTHM. RT PERFORMED OXYGEN TEST TO DETERMIN NEED FOR HOME O2. RT REPORT STATES PT NEEDS 2L O2 WHEN AMBULATING AND 1L O2 WHILE RESTING. ECHO CARDIOGRAM PERFORMED TODAY. MEDICATIONS GIVEN FOR CONSTIPATIONS WITH GOOD RESULTS, LAST BM THIS AM AT 0900. PO FOOD INTAKE GOOD AND PT ADHERING TO FLUID RESTRICTIONS. SKIN REMAINS INTACKT, PT SHOWERED INDEPENDANTLY TODAY. PIV REPLACED TODAY. PT VERBALIZES UNDERSTANDING OF PLAN MOVING FORWARD AND IS ACTIVELY PARTICIPATING IN CARE.
--- NOTE | 2017-08-03 18:38 | NUR ---
THIS RN WENT TO CHECK ON PT. PT STATES "I'M JUST IN DOG'S HEAVEN RIGHT NOW. HAPPY AND CONTENT." PT TELLS STORIES OF HIS ANCESTORS AND TIMES A MUSEUMS. PT HAS NO REQUESTS OR COMPLAINTS. O2 ON, BEDRAILS UP. CALL LIGHT WITHIN REACH.
--- NOTE | 2017-08-03 18:49 | NUR ---
PATIENT WATCHING TV IN BED, PREPARING TO EAT A SLICE OF [place]. FRESH ICE WATER GIVEN. CALL BUTTON WITHIN REACH- NO OTHER NEEDS AT THIS TIME.
--- NOTE | 2017-08-03 19:25 | NUR ---
IN ROOM FOR REPORT, PT IS AWAKE IN BED ON 1 LNC. NEPHEW IS VISITING AND DISCUSSING POSSIBLE DC TOMORROW. PT HAS NO REQUESTS AT THIS TIME. CALL LIGHT IS WITHIN REACH.
--- NOTE | 2017-08-03 22:00 | NUR ---
PT HAS CLEAR/DIM LUNG SOUNDS ON 1 LNC, PT REPORT LITTLE SOB WITH EXERTION. PT STATES HE NO LONGER IS WEAK. PT IS INDEPENDENT IN ROOM AND EATING WELL. PT IS COMPLIANT WITH 1500 ML FLUID RESTRICTION. EVENING MEDICATIONS GIVEN, PT REPORTS NO PAIN AND DENIES FURTHER NEEDS.
--- NOTE | 2017-08-04 00:01 | NUR ---
PT IS RESTING WITH EYES CLOSED, RESPIRATIONS EVEN AND NONLABORED ON 1 LNC HUMIDIFIED O2. CALL LIGHT WITHIN REACH.
--- NOTE | 2017-08-04 01:32 | NUR ---
PT IS RESTING WITH EYES CLOSED, RESPIRATIONS EVEN AND NONLABORED ON 1 LNC. CALL LIGHT IS WITHIN REACH.
--- NOTE | 2017-08-04 03:15 | NUR ---
PT IS RESTING WITH EYES CLOSED, RESPIRATIONS EVEN AND NONLABORED ON 1LNC (HUMIDIFIED). CALL LIGHT WITHIN REACH.
--- NOTE | 2017-08-04 05:00 | NUR ---
PT UP TO RESTROOM INDEPENDENTLY AND HAS NO COMPLAINTS OF SOB. LUNG SOUNDS CLEAR ON 1 LNC. PT DENIES PAIN.
--- NOTE | 2017-08-04 07:25 | NUR ---
BEDSIDE HANDOFF REPORT RECEIVED FROM CMV DRIVER RN. PT SLEEPING, LEFT UNDISTURBED.
--- NOTE | 2017-08-04 08:30 | NUR ---
PT RESTING IN BED. PT COMPLAINT OF OVERALL NOT FEELING WELL THIS AM. PT COMLAINT OF LOWER ABD ACHING. PT COMPLAINT OF CONGESTED SINUSES. PT ON 1L NC, LUNG SOUNDS CLEAR, DENIES SOB OR CHAEST PAIN. PT TOLERATING CARDIAC DIET, DENIES NAUSEA. PT STATES HE FEELS LIKE HE NEEDS TO HAVE BOWEL MOVEMENT, ABD SOFT BUT SLIGHTLY DISTENDED. PT WITHOUT EDEMA, CMS INTACT. PT DENIES PAIN. DISCUSSED PLAN OF CARE FOR THE DAY, ENCOURAGED PT TO SPEND TIME IN CHAIR/OOB. PT DENIES OTHER NEEDS AT THIS TIME.
--- NOTE | 2017-08-04 08:47 | NUR ---
BROUGHT PATIENT 200ML COFFEE, GAVE FRESH ICE WATER. PATIENT SITTING IN CHAIR WATCHING TV. PATIENT REFUSED SHOWER. FRESH LINENS. CALL BUTTON INREACH, NO OTHER NEEDS NEEDED AT THIS TIME.
--- NOTE | 2017-08-04 09:01 | NUR ---
Heart failure education: Patient is sittingin chair and reports fatigue from poor night's sleep. Given zone magnet. Patient has given his permission to set up an appointment with [facility] for follow up within a week. Waiting a call back from clinic.
[2017-08-04] MEDS ORDERED: LASIX40 MG PO ×2 (11:46→12:07)
[2017-08-04] MEDS ORDERED: BENZONATATE100 MG PO (11:46)
[2017-08-04] MEDS ORDERED: K-TAB ER20 MEQ PO ×2 (11:46→12:07)
[2017-08-04] MEDS ORDERED: DEEP SEA44 ML NAS (11:47)
[2017-08-04] MEDS ORDERED: PREDNISONE20 MG PO (11:52)
--- NOTE | 2017-08-04 13:06 | NUR ---
RT AT BEDSIDE FOR HOME O2 QUALIFICATION, PT AMBULATING IN [place].
--- NOTE | 2017-08-04 13:30 | NUR ---
CALLED [facility] TO SEE WHAT WE NEEDED FOR PT TO BE SET UP WITH OXYGEN AT HOME, THEY TOLD ME WHAT TO FAX, I FAXED THE PAPERWORK AND LEFT THE CONFIRMATION WITH COREEN. COREEN WAS IN A MEETING.
--- NOTE | 2017-08-04 15:25 | NUR ---
FAXED THE RT HOME QUALIFIER TO [facility]. THEY HAVE ALREADY RECIEVED NOTES AND THE ORDER FOR HOME O2 SENT BY MURALI SWANN.
--- NOTE | 2017-08-05 17:57 | NUR ---
Discharge follow up call- Spoke at length to patient and spouse. She states she did speak to Dr Hauser this AM. She is reading the HF and DC folders. Patient is eating homemade soup for dinner, spouse states she is having to "reprogram" the way she shops and cooks. Was able to name salt alternatives. He did not weigh today, reminded of the importance of daily symptom management. No current symptoms. Informed of use of the walk in clinic if symptoms occur. PCP and motel front desk clerk (Dr Suresh in [facility]) visits are in 2 weeks out of town. Spouse will drive them to visits. When asked about DC medicines, she thought that the DC Summary had two added medications on it. But she said from what she could see nothing had changed. I reviewed with her.Discovered lasix and potassium were to be increased to BID. Discussed times to take and asked that he takes today's second dose now. Patient was in agreement. Home oxygen was not ordered correctly for insurance to pay. [facility] will be sending the correct forms for motel front desk clerk to fill out. and daughter are helping out at home. Encouraged to call my office line if they have concerns or more questions. They did forget the heart failure zones magnet at [place]- I will mail them a new one.
== END 2017-08-04 15:20 | disposition home or self-care (01) | DRG 291 ==
LOC: ED 08:16 → MS 12:28
PROVIDERS: ADMIT Internal Medicine
DX: I11.0 Hypertensive heart disease with heart failure (principal); J96.21 Acute and chronic respiratory failure with hypoxia; J44.1 Chronic obstructive pulmonary disease with (acute) exacerbation; I50.23 Acute on chronic systolic (congestive) heart failure; I25.10 Atherosclerotic heart disease of native coronary artery without angina pectoris; I48.0 Paroxysmal atrial fibrillation; E78.5 Hyperlipidemia, unspecified; I27.20 Pulmonary hypertension, unspecified; I08.1 Rheumatic disorders of both mitral and tricuspid valves; I25.2 Old myocardial infarction; Z95.5 Presence of coronary angioplasty implant and graft; Z98.1 Arthrodesis status; F17.210 Nicotine dependence, cigarettes, uncomplicated
CPT/HCPCS: 36415; 71045; 71046; 80048; 80053; 82803; 83735; 83880; 84484; 85025; 85379; 87502; 93005; 93010; 93306; 94640; 94667; 94668; 94761; J2930; J7512

== ENCOUNTER 2017-11-01 06:12 | Emergency (ER) | payer MEDICARE ==
[~2017-11-01] VITALS: Ht 170.2 cm; Wt 65.8 kg
[~2017-11-01 06:12] MED LIST changes: +BENZONATATE100 MG PO; +CITRUCEL500 MG PO; +DEEP SEA44 ML NAS; +PREDNISONE20 MG PO; +TYLENOL EXTRA500 MG PO; +VITAMIN C1000 MG PO
[2017-11-01] MEDS ORDERED: OXYCODONE HCL5 MG PO (08:36)
[2017-11-01] MEDS ORDERED: VALACYCLOVIR1000 MG PO (08:41)
[2017-11-01] MEDS ORDERED: PREDNISONE10 MG PO (08:41)
== END 2017-11-01 09:05 | disposition home or self-care (01) ==
LOC: ED 06:12
DX: I65.29 Occlusion and stenosis of unspecified carotid artery (principal); B02.9 Zoster without complications; M47.9 Spondylosis, unspecified; M79.601 Pain in right arm; J44.9 Chronic obstructive pulmonary disease, unspecified; I25.2 Old myocardial infarction; Z79.899 Other long term (current) drug therapy; Z87.891 Personal history of nicotine dependence
CPT/HCPCS: 72125; 99284; J7512

== ENCOUNTER 2018-03-09 14:44 | Emergency (ER) | payer MEDICARE ==
[~2018-03-09] VITALS: Ht 170.2 cm; Wt 65.8 kg
[~2018-03-09 14:44] MED LIST changes: +OXYCODONE HCL5 MG PO; +PREDNISONE10 MG PO; +VALACYCLOVIR1000 MG PO
--- NOTE | 2018-03-09 15:19 | EKG ---
[facility] [address] [place] [address] Signed Third degree heart block Abnormal ECG When compared with ECG of 30-JUL-2017 08:14, Significant changes have occurred Confirmed by KEVEN LOCO MD ([id number]) on 03/09/2018 3:19:36 PM Electronically Signed By: KEVEN LOCO MD 03/09/18 1519 PATIENT NAME: HUSSAIN GONZALEZ Electrocardiogram DATE OF : [birth year] PHYSICIAN: KEVEN LOCO MD REPORT #: [id number] REPORT IS CONFIDENTIAL AND NOT TO BE RELEASED WITHOUT AUTHORIZATION
[2018-03-09] MEDS ORDERED: TOPROL XL25 MG PO (15:24)
[2018-03-09] MEDS ORDERED: PRESERVISION A1 EACH PO (15:24)
[2018-03-09] MEDS ORDERED: FLUDROCORTISON0.1 MG PO (15:25)
[2018-03-09] MEDS ORDERED: COZAAR25 MG PO (15:26)
[2018-03-09] MEDS ORDERED: NEURONTIN300 MG PO (15:26)
[2018-03-09] MEDS ORDERED: TRELEGY ELLIPT1 EACH INH (15:27)
== END 2018-03-09 18:26 | disposition short-term general hospital (02) ==
LOC: ED 14:44
DX: I44.2 Atrioventricular block, complete (principal); R55 Syncope and collapse; I48.91 Unspecified atrial fibrillation; I25.2 Old myocardial infarction; J44.9 Chronic obstructive pulmonary disease, unspecified; I50.9 Heart failure, unspecified; Z87.891 Personal history of nicotine dependence; Z79.899 Other long term (current) drug therapy
CPT/HCPCS: 71045; 80053; 83880; 84484; 85025; 93005; 93010; 99285

== ENCOUNTER 2018-03-11 09:58 | Emergency (ER) | payer MEDICARE ==
[~2018-03-11] VITALS: Ht 170.2 cm; Wt 65.8 kg
--- OUTSIDE RECORDS SUMMARY | ~2018-03-11 | XMS | Encounter Summary ---
Demographics + + + | Address | [address] | | | [place] [address] | + + + | Home Phone | | + + + | Preferred Language | Unknown | + + + | Marital Status | | + + + | Yarsani Affiliation | Unknown | + + + | Race | Unknown | + + + | Ethnic Group | Unknown | + + + Author + + + | Author | [facility] | + + + | Organization | [facility] | + + + | Address | Unknown | + + + | Phone | Unavailable | + + + Support + + +---------+ + | Name | Relationship | Address | Phone | + + +---------+ + | Bronwyn Hernández | ECON | Unknown | | + + +---------+ + Care Team Providers + +------+ + | Care Electric Truck Driver Name | Role | Phone | + [...] | Internal | Diagnoses | | [facility] 4th | | | | Medicine | 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 | | [address] | | | | | fibrillation | | [address] | | | | | (HCC) AV | | [place], [place] | | | | | block, 3rd | | [address] Phone: | | | | | degree (HCC) | | [phone] | | | | | Near | | Fax: | | | | | syncope | | [phone] | | | | | | | | +--------+--------+ + + + + Encounter Details +--------+ + + + + | Date | Type | Department | Care Team | Description | +--------+ + + + + | 03/09/ | Hospital | [facility] | Austin Vallecillo, | AV block, 3rd degree | | 2018 - | Encounter | [facility] 4th | [address] | (HCC) (Primary Dx); | | | | [facility] | [place] [address] | Near syncope; | | 03/10/ | | [address] | [phone] | Paroxysmal atrial | | 2018 | | [place] [address] | | fibrillation (HCC) | | | | [phone] | Oswaldo Carbajal MD [address] | | | | | [address] | | | | | | [place] [address] | | | | | | [phone] | | | | | | | [...] + in this encounter Discharge Summaries Oswaldo Carbajal MD - 03/10/2018 5:09 PM PDTFormatting of this note may be different from the o marbella. [facility] PATIENT NAME: Hussain Hernández : 1930: AGE: 88 y.o. ADMISSION DATE: 03/09/2018 DISCHARGE DATE: 03/10/2018 PRIMARY CARE: No primary care provider on file. Oswaldo Carbajal MD Electrophysiology DISCHARGE SUMMARY [facility]: Complete heart block Admission Diagnoses: FULL PROBLEM LIST Patient Active Problem List Diagnosis Complete heart block (HCC) Dilated cardiomyopathy (HCC) Paroxysmal atrial fibrillation (HCC) Pulmonary emphysema (HCC) History of spinal fusion History of gout History of left bundle-branch block Three-vessel coronary disease Chronic systolic congestive heart failure Discharge Diagnoses: Same as above. Procedures In Hospital: Smash Bucket HARNESS BRUSHER defibrillator, on March 10, 2018 Hospital Course: He was transferred from [facility] via [employer] helicopter sherley use of symptomatic complete heart block with a heart rate of 40 and a blood pressure of 90. He was previously scheduled have a HARNESS BRUSHER device placed in [facility] because of the complete heart block, it was felt this should be done closer to home. He has a chronic left bundle-branch block and chronic systolic congestive heart failure with an ejection frac tion of 25%. Shortly after he arrived in the emergency room via helicopter, he was taken em ergently to the EP lab and a HARNESS BRUSHER defibrillator was placed. Ventricular fibrillation was not [...] 100-62.5-25 mcg/puff inhaler Refills: 0 Generic drug: zjvkezdwmfh-sidkixctcpfq-qhqxpndmyb vitamin C 1000 MG tablet Refills: 0 [...] Your Medications These medications were sent to [facility] [id number] [place] [address] [place] - [address] AT [address]EC OF [address], [place] [address] losartan 25 MG tablet metoprolol 25 MG 24 hr tablet spironolactone 25 MG tablet Follow-Up: Oswaldo Carbajal MD [address] [place] [address] Dr Ford [place] [id number] Schedule an appointment as soon as possible for a visit in 1 week For wound re-check WITH therapist took 30 minutes, to include final examination, discussion of admission, and prepa ration of prescriptions, instructions for on-going care, follow-up and documentation of disc harge summary. If patient has any further questions or concerns prior to above, instructed to call our off ice. Signed by: Oswaldo Carbajal MD 03/11/2018, 9:11 AM in this encounter [...] usage. Your appointments will be at the [facility] in [place] across from the [facility]. The address is [address] [place] [address]. The office is located on the [address] [place] [address]. This appointment should already be scheduled for you, but if not, please call to schedule your appointment. [facility] [...] at home, please call the office at [phone]. in this encounter Medications at Time of [...] as of this encounter Plan of Treatment + +--------+ + + | Name | Priori | Associated Diagnoses | Date/Time | | | ty | | | + +--------+ + + | EP ICD BIV Insertion | Routin | | 03/09/2018 9:20 PM | | generator/leads | e | | PDT | + +--------+ + + as of this encounter Procedures [...] INSERTION | Routin | 03/09/2018 | | | | GENERATOR AND LEADS | e | 9:20 PM | | | | | | PDT | | | + +--------+ + + + +---+--------+ | | | | | Proced | | | ure | | | Note - | | | [place], | | | Rad | | | Result | | | s In - | | | | | | 03/10/ | | | 2017 | | | 2:45 | | | PM PDT | | | | | | Access | | | ion: | | | [id number] | | | 1 | | | | | | | | | | | | | | | | | | | | | | | | | | | | | | | | | ___PRO | | | CEDURE | | | : HARNESS BRUSHER | | | | | | defibr | | | illato | | | r | | | implan | | | t.DATE | | | : | | | 03/09/ | | | 2017.H | | | ISTORY | | | : | | | This | | | 88-yea | | | r-old | | | gentle | | | man | | | was | | | referr | | | ed | | | urgent | | | ly by | | | Dr. * | | | * * | | | inthe | | | emerge | | | ncy | | | room | | | at [facility] | [facility] | | | al | | | becaus | | | e of | | | sympto | | | maticc | | | omplet | | | e | | | heart | | | block | | | associ | | | ated | | | with | | | relati | | | ve | | | hypote | | | nsion | | | and a | | | heart | | | ratein | | | the | | | 40 | | | beats | | | per | | | minute | | | | | | range. | | | He | | | presen | | | blanka | | | today | | | with | | | diapho | | | resis | | | andsom | | | e | | | lighth | | | eadedn | | | ess | | | and | | | felt | | | poorly | | | . He | | | was | | | theref | | | ore | | | transf | | | erred | | | [facility] | | | [facility] | | | [facility] | | | l | | | Center | | | for a | | | HARNESS BRUSHER | | | pacema | | | ker. | | | He has | | | a | | | baseli | | | ne | | | leftbu | | | ndle | | | branch | | | block | | | and | | | severe | | | LV | | | systol | | | ic | | | dysfun | | | ction | | | with | | | an | | | ejecti | | | onfrac | | | tion | | | of | | | 25-30 | | | percen | | | t in | | | the | | | contex | | | t of | | | modera | | | te MR | | | and TR | | | and | | | modera | | | keyshawn | | | severe | | | | | | pulmon | | | blanca | | | hypert | | | ension | | | . He | | | has an | | | | | | ischem | | | ic | | | cardio | | | myopat | | | hy | | | andhas | | | had 4 | | | prior | | | | | | stents | | | . A | | | HARNESS BRUSHER | | | device | | | was | | | planne | | | d for | | | next | | | week | | | inVanc | | | ouver, | | | | | | Washin | | | gton, | | | but | | | becaus | | | e of | | | his | | | sympto | | | matic | | | comple | | | te | | | heart | | | block, | | | it was | | | | | | recomm | | | ended | | | that | | | he get | | | this | | | device | | | | | | placed | | | | | | locall | | | y.PROC | | | EDURE | | | NOTE: | | | The | | | patien | | | t was | | | julienne | | | t to | | | the | | | electr | | | ophysi | | | ologyl | | | aborat | | | ory in | | | | | | postab | | | sorpti | | | ve | | | nonsed | | | ated | | | state. | | | Dr. | | | Reeves | | | was | | | presen | | | t | | | froman | | | esthes | | | ia for | | | the | | | entire | | | case, | | | and | | | his | | | presen | | | ce was | | | very | | | helpfu | | | l. | | | Heseda | | | blanka | | | the | | | patien | | | t | | | minima | | | lly at | | | my | | | reques | | | t | | | becaus | | | e of | | | his | | | unstab | | | leclin | | | ical | | | situat | | | ion. | | | A | | | total | | | of 100 | | | mcg | | | intrav | | | enous | | | fentan | | | yl | | | were | | | givent | | | hrough | | | out | | | the | | | case. | | | The | | | chest | | | was | | | preppe | | | d and | | | draped | | | in | | | the | | | usual | | | steril | | | efashi | | | on and | | | | | | locall | | | y | | | anesth | | | etized | | | with | | | 1 | | | percen | | | t | | | xyloca | | | ine. | | | The | | | leftsu | | | bclavi | | | an | | | vein | | | was | | | access | | | ed 3 | | | times | | | with | | | an | | | 18-gau | | | ge | | | needle | | | and | | | 3guide | | | wires | | | were | | | placed | | | into | | | the | | | vessel | | | . A | | | 9-Fren | | | ch | | | introd | | | ucer | | | was | | | placed | | | into | | | the | | | subcla | | | vian | | | vein, | | | and | | | throug | | | h | | | that, | | | a | | | Mobile | | | | | | Scient | | | ific, | | | model0 | | | 292, | | | serial | | | | | | number | | | | | | [id number] | | | lead | | | was | | | placed | | | into | | | the | | | right | | | ventri | | | renny | | | andscr | | | ewed | | | into | | | positi | | | on | | | toward | | | s the | | | apex. | | | This | | | was a | | | single | | | -coil | | | lead. | | | | | | Thelea | | | d was | | | anchor | | | ed | | | with | | | two #1 | | | | | | Ethibo | | | nd | | | suture | | | s. | | | There | | | was no | | | | | | diaphr | | | agmati | | | cpacin | | | g at | | | 10 V.A | | | | | | 9-Fren | | | ch | | | [place] | | | | | | sheath | | | was | | | placed | | | into | | | the | | | subcla | | | vian | | | vein | | | and | | | down | | | intoth | | | e | | | right | | | atrium | | | . A | | | Yg | | | | | | introd | | | ucer | | | was | | | used | | | to | | | access | | | the | | | silva | | | rysinu | | | s | | | after | | | a | | | modera | | | te | | | amount | | | of | | | diffic | | | ulty. | | | This | | | had a | | | fairly | | | | | | vertic | | | altake | | | off | | | and it | | | was | | | diffic | | | ult to | | | | | | access | | | the | | | silva | | | ry | | | sinus. | | | Once | | | it | | | wasacc | | | essed, | | | a | | | silva | | | ry | | | sinus | | | venogr | | | am was | | | | | | perfor | | | med | | | using | | | 10 mL | | | of | | | contra | | | st.Tot | | | al | | | contra | | | st | | | given | | | during | | | the | | | case | | | was 27 | | | mL. | | | Unfort | | | unatel | | | y, | | | poorta | | | rgets | | | were | | | seen | | | in the | | | | | | silva | | | ry | | | sinus. | | | | | | There | | | was a | | | spindl | | | y | | | distal | | | | | | target | | | that | | | was | | | not | | | big | | | enough | | | to | | | accomm | | | odate | | | a | | | lead. | | | Also, | | | more | | | toward | | | s | | | thedis | | | hilda | | | part | | | of the | | | | | | silva | | | ry | | | sinus | | | was a | | | corksc | | | rew | | | type | | | small | | | to | | | modera | | | tesize | | | d | | | vessel | | | that | | | we | | | attemp | | | blanka to | | | | | | access | | | and | | | actual | | | ly got | | | a | | | wire | | | down | | | intoth | | | e | | | vessel | | | | | | signif | | | icantl | | | y far | | | down. | | | We | | | though | | | t this | | | would | | | be a | | | good | | | vessel | | | to | | | use, | | | but | | | unfort | | | unatel | | | y the | | | Mobile | | | | | | Scient | | | ific | | | lead | | | would | | | not | | | negoti | | | atethr | | | ough | | | the | | | corksc | | | rew. | | | A | | | Quad, | | | model | | | [id number], | | | serial | | | | | | number | | | | | | [id number] | | | lead | | | wasuse | | | d. We | | | tried | | | and | | | tried | | | withou | | | t | | | succes | | | s. | | | The | | | middle | | | | | | cardia | | | c vein | | | | | | looked | | | like a | | | good | | | sized | | | vessel | | | but | | | it had | | | an | | | extrem | | | hilary | | | vertic | | | al | | | takeof | | | f | | | downwa | | | rdfrom | | | the | | | silva | | | ry | | | sinus | | | that | | | made | | | access | | | | | | almost | | | | | | imposs | | | ible. | | | We | | | tried | | | theBos | | | ton | | | Scient | | | ific | | | subsel | | | geovanny | | | and a | | | Yg | | | | | | select | | | or | | | throug | | | h that | | | | | | withou | | | tsucce | | | ss. A | | | 0.014 | | | | | | guidew | | | magnolia | | | was | | | utiliz | | | ed to | | | try to | | | | | | access | | | the | | | vertic | | | aldown | | | maravilla | | | takeof | | | f with | | | a | | | Vert | | | cathet | | | er | | | withou | | | t | | | succes | | | s. On | | | one | | | occasi | | | on,the | | | 0.014 | | | | | | guidew | | | magnolia | | | was | | | found | | | to be | | | in the | | | | | | perica | | | rdial | | | space | | | and I | | | electe | | | dto | | | abando | | | n | | | furthe | | | r | | | effort | | | s. | | | The | | | wire | | | was | | | pulled | | | back | | | and a | | | very | | | proxim | | | altake | | | off | | | from | | | the | | | silva | | | ry | | | sinus | | | was | | | access | | | ed | | | with | | | the | | | Mobile | | | | | | Scient | | | ificsu | | | bselec | | | tor. | | | A | | | guidew | | | magnolia | | | was | | | placed | | | out | | | as far | | | | | | distal | | | ly | | | into | | | that | | | vessel | | | as it | | | could | | | be | | | placed | | | , and | | | over | | | that, | | | the | | | lead | | | course | | | d | | | toward | | | s the | | | apex | | | ofthe | | | left | | | ventri | | | renny. | | | Unfort | | | unatel | | | y, the | | | lead | | | could | | | not | | | even | | | be | | | placed | | | asfar | | | as | | | the | | | apex. | | | It | | | was | | | clearl | | | y | | | proxim | | | al to | | | the | | | apex | | | in a | | | subopt | | | imal | | | placef | | | or | | | pacing | | | but | | | it was | | | the | | | only | | | possib | | | le | | | endoca | | | rdial | | | target | | | that | | | woulda | | | ccommo | | | date a | | | lead | | | in | | | this | | | patien | | | t.In | | | the | | | final | | | locati | | | on, | | | the | | | pacing | | | | | | thresh | | | old | | | was | | | 1.8 V | | | at 0.6 | | | ms | | | with | | | animpe | | | dance | | | of 964 | | | ohms | | | and a | | | curren | | | t of | | | 1.9 | | | mA. | | | R-wave | | | s were | | | 10.5 | | | mV. | | | Thelea | | | d was | | | anchor | | | ed | | | into | | | positi | | | on and | | | the | | | device | | | was | | | progra | | | mmed | | | into | | | the | | | LVring | | | 2 to | | | LV | | | ring 4 | | | | | | config | | | uratio | | | n, | | | which | | | offere | | | d one | | | of the | | | best | | | pacing | | | config | | | uratio | | | ns. | | | The RV | | | | | | pacing | | | | | | thresh | | | old | | | was | | | 0.5 V | | | at 0.6 | | | ms | | | with | | | animpe | | | dance | | | of 485 | | | ohms, | | | high | | | voltag | | | e lead | | | | | | impeda | | | nce of | | | 47 | | | ohms, | | | and | | | thecur | | | rent | | | was | | | 1.1 mA | | | with | | | R-wave | | | s of | | | 11.2 | | | mV.A | | | 6-Fren | | | ch | | | introd | | | ucer | | | was | | | placed | | | into | | | the | | | subcla | | | vian | | | vein, | | | and | | | throug | | | hthat, | | | a | | | Mobile | | | | | | Scient | | | ific, | | | model | | | [id number], | | | serial | | | | | | number | | | | | | [id number] | | | lead | | | was | | | placed | | | into | | | the | | | high | | | anteri | | | or | | | aspect | | | of | | | the | | | right | | | atrium | | | and | | | the | | | lead | | | was | | | used | | | tomap | | | for | | | good | | | pacing | | | and | | | sensin | | | g | | | locati | | | ons. | | | In the | | | final | | | | | | locati | | | on, | | | thepac | | | ing | | | thresh | | | old | | | was | | | 0.4 V | | | at 0.6 | | | ms | | | with | | | an | | | impeda | | | nce of | | | 603 | | | ohms | | | and | | | acurre | | | nt of | | | 0.7 | | | mA. | | | P-wave | | | s were | | | 4.0 | | | mV. | | | The | | | lead | | | was | | | anchor | | | ed | | | intopo | | | sition | | | with | | | two #1 | | | | | | Ethibo | | | nd | | | suture | | | s. | | | There | | | was no | | | | | | diaphr | | | agmati | | | c | | | pacing | | | at 10 | | | V. | | | All | | | leads | | | were | | | attach | | | ed to | | | a | | | Mobile | | | | | | Scient | | | ific | | | Dynage | | | n | | | CRTdef | | | ibrill | | | ator | | | (model | | | [id number], | | | | | | serial | | | | | | number | | | | | | [id number] | | | ). | | | That | | | device | | | was | | | placed | | | into | | | the | | | left | | | prepec | | | lizeth | | | region | | | into | | | the | | | previo | | | usly | | | placed | | | | | | pacema | | | kerpoc | | | ket | | | and | | | anchor | | | ed | | | with a | | | #1 | | | Ethibo | | | nd | | | suture | | | . I | | | electe | | | d not | | | to | | | induce | | | ventri | | | cular | | | fibril | | | lation | | | | | | becaus | | | e this | | | | | | patien | | | t as | | | quite | | | ill | | | and | | | not | | | wellse | | | dated. | | | The | | | device | | | was | | | anchor | | | ed | | | with a | | | #1 | | | Ethibo | | | nd | | | suture | | | . The | | | | | | pocket | | | was | | | closed | | | with 4 | | | | | | layers | | | , | | | using | | | 2-0 | | | Vicryl | | | for | | | the | | | deep 2 | | | | | | layers | | | , 3-0 | | | Vicryl | | | for | | | thenex | | | t | | | layer, | | | and | | | 4-0 | | | Monocr | | | yl for | | | the | | | superf | | | icial | | | layer. | | | A | | | steril | | | e | | | dressi | | | ngwas | | | applie | | | d.IVONNE | | | MATED | | | BLOOD | | | LOSS: | | | 25 mL | | | or | | | less.T | | | OTAL | | | CONTRA | | | ST | | | GIVEN: | | | 27 | | | mL.The | | | | | | pocket | | | was | | | closed | | | with | | | suture | | | s as | | | outlin | | | ed | | | above | | | and | | | then | | | dresse | | | d | | | withDe | | | rmabon | | | d-like | | | | | | substa | | | nce.FI | | | NAL | | | SETTIN | | | GS FOR | | | | | | DEVICE | | | : | | | Mode | | | for | | | pacing | | | : | | | DDDR | | | with a | | | lower | | | rate | | | of | | | 60and | | | an | | | upper | | | rate | | | of 120 | | | beats | | | per | | | minute | | | . The | | | paced | | | AV | | | delay | | | will | | | be | | | 150ms, | | | and | | | sensed | | | AV | | | delay | | | 120 | | | ms. | | | The | | | postve | | | ntricu | | | lar | | | atrial | | | | | | refrac | | | torype | | | riod | | | will | | | be 240 | | | to | | | 280 | | | ms. | | | The | | | output | | | from | | | the LV | | | and | | | RV | | | will | | | be 5 V | | | at0.6 | | | ms | | | with a | | | | | | sensit | | | ivity | | | of 1 | | | mV in | | | the LV | | | and | | | 0.6 mV | | | in | | | the | | | RV. | | | Theout | | | put in | | | the | | | atrium | | | will | | | be 3.5 | | | V at | | | 0.6 ms | | | with | | | a | | | sensit | | | ivity | | | of 0.5 | | | | | | mV.Pac | | | ing | | | and | | | sensin | | | g will | | | be | | | bipola | | | r. | | | The | | | lower | | | rate | | | limit | | | will | | | be 60 | | | beatsp | | | er | | | minute | | | and | | | pacing | | | mode | | | will | | | be | | | DDDR | | | with | | | an | | | upper | | | rate | | | limit | | | of | | | 120bea | | | ts per | | | | | | minute | | | .A | | | single | | | zone | | | has | | | been | | | progra | | | mmed | | | for | | | ventri | | | cular | | | fibril | | | lation | | | with | | | adetec | | | tion | | | rate | | | of 180 | | | beats | | | per | | | minute | | | . | | | Therap | | | y will | | | be | | | quick | | | conver | | | tfollo | | | wed by | | | 31 | | | joule | | | first | | | shock | | | and | | | all | | | subseq | | | uent | | | shocks | | | will | | | be | | | 41joul | | | es. A | | | [place] | | | therap | | | y zone | | | from | | | 150 to | | | 180 | | | beats | | | per | | | minute | | | will | | | beprog | | | rammed | | | . The | | | first | | | | | | therap | | | y will | | | be 2 | | | differ | | | ent | | | attemp | | | ts | | | atanti | | | tachyc | | | ardia | | | pacing | | | | | | (first | | | at 91 | | | | | | percen | | | t and | | | the | | | second | | | at 85 | | | | | | percen | | | t)foll | | | owed | | | by 31 | | | joule | | | first | | | shock | | | and | | | all | | | subseq | | | uent | | | shocks | | | will | | | be | | | 41joul | | | es.FIN | | | AL | | | IMPRES | | | LASHELL:1 | | | . Good | | | | | | pacing | | | and | | | sensin | | | g | | | thresh | | | olds.2 | | | . | | | Subopt | | | imal | | | left | | | ventri | | | cular | | | lead | | | positi | | | on, | | | but | | | there | | | were | | | no | | | other | | | | | | altern | | | ative | | | places | | | | | | availa | | | ble to | | | place | | | this | | | lead | | | other | | | than | | | an | | | epicar | | | dial | | | | | | placem | | | ent. | | | I have | | | | | | recomm | | | ended | | | trying | | | this | | | new | | | positi | | | on and | | | | | | seeing | | | how | | | he | | | does | | | clinic | | | ally. | | | If he | | | does | | | not do | | | well | | | or if | | | the LV | | | | | | systol | | | ic | | | functi | | | on | | | contin | | | ues to | | | | | | deteri | | | orate, | | | | | | consid | | | eratio | | | n will | | | need | | | to be | | | given | | | for | | | an | | | epicar | | | dial | | | device | | | . | | | Unfort | | | unatel | | | y, he | | | has | | | severe | | | COPD | | | and | | | severe | | | LV | | | systol | | | ic | | | dysfun | | | ction, | | | so | | | that | | | would | | | be a | | | potent | | | ially | | | risky | | | proced | | | ure | | | in | | | this | | | gentle | | | man.3. | | | The | | | antico | | | agulat | | | ion | | | will | | | be | | | resume | | | d | | | tomorr | | | ow | | | (apixa | | | ban is | | | his | | | reques | | | t).4. | | | Follow | | | up: 1 | | | week | | | (soone | | | r if | | | need | | | be).Re | | | ad by | | | OSWALDO | | | ABRIL, | | | MD | | | 03/09/ | | | 2017 | | | 10:57 | | | P | +---+--------+ + +--------+ +---+ + | MRSA BY PCR | Timed | 03/09/2018 | | Results for this | | | | 7:26 PM | | procedure are in the | | | | PDT | | results section. | + +--------+ +---+ + | XR CHEST 1 VIEW | Routin | 03/09/2018 | | Results for this | | | e | 6:13 PM | | procedure are in the | | | | PDT | | results section. | + +--------+ +---+ + in this encounter Results CBC w/auto [...] | [facility] | | | performed at [facility], [address] | LABORATORY | | | [address], | | | | | [place] [id number] | | | + + + + + + + | Specimen | + + | Blood | + + + + + + + | Performing | Address | City/State/Zipcode | Phone Number | | Organization | | | | + + + + + | [facility] | [address] | [place] [id number] | [phone] | | LABORATORY | [address] | | | + + + + + Basic metabolic panel (03/10/2018 4:41 AM) + + + + + | Component | Value | Ref Range | Performed At | + + + + + | SODIUM | 142 | 135 - 145 mmol/L | [facility] | | | | [...] + | BUN/CREAT | 26 | | [facility] | | | | | LABORATORY | + + + + + | CALCIUM | 8.3 (L) | 8.5 - 10.5 mg/dL | [facility] | | | | [...] the | | | | | MDRD IDNY traceable | | | | | equation.Testing | | | | | performed at [facility], [address] | | | | [facility], | | | | | [place] [id number] | | | + + + + + + + | Specimen | + + | Blood | + + + + + + + | Performing | Address | City/State/Zipcode | Phone Number | | Organization | | | | + + + + + | [facility] | [address] | [place] [address] | [phone] | | LABORATORY | [address] | | [...] At | + + + | HUSSAIN FRAIRE EGG 1930 88 years Male XR CHEST [...] - 03/09/2018 11:21 PM PDT HUSSAIN FRAIRE [id number] years | | MaleXR CHEST 2 VIEW [...] | + + + + + | [facility] | [address] | [place] [address] | | + + + + + MRSA by PCR (03/09/2018 7:26 PM) + + + + + | Component | Value | Ref Range | Performed At | + + + + + | SOURCE | NARES(NOSE) | | [facility] | + + + + + | MRSA PCR | NEGATIVEComment: Testing | NEGATIVE | [facility] | | | performed at [facility] | | | | | [address];[place] | | | | | [address] | | | + + + + + + + | Specimen | + + | Nasopharyngeal - | | Nares(Nose) | + + + + + + + | Performing | Address | City/State/Zipcode | Phone Number | | Organization | | | | + + + + + | [facility] | [address] | [place] [address] | | + + + + + X-ray Chest 1 View (03/09/2018 6:13 PM) + + + | Narrative | Performed At | + + + | This is a non-reportable procedure without a radiologist report and | [facility] | | is used for image storage only | RADIOLOGY | + + + + + + + + | Performing | Address | City/State/Zipcode | Phone Number | | Organization | | | | + + + + + | [facility] | [address] | [place] [address] | | + + + + + [...] | | | Morning, First dose on Bri | | PDT [...] | | | | First dose on [facility] 03/10/18 at 0900 | | | [...] | | First dose on Wed03/10/18 at | | PDT | | | [...] | | | | | | infusion auto transmission technician to EP lab | | | | | | + +---------+ +--------+---+---+ +---+---+ | | | +---+---+ in this encounter
--- OUTSIDE RECORDS SUMMARY | ~2018-03-11 | XMS | Encounter Summary ---
Demographics + + + | Address | [address] | | | [place] [address] | + + + | Home Phone | | + + + | Preferred Language | Unknown | + + + | Marital Status | | + + + | Taoist Affiliation | Unknown | + + + | Race | Unknown | + + + | Ethnic Group | Unknown | + + + Author + + + | Author | Glenda [facility] | + + + | Organization | [facility] | + + + | Address | Unknown | + + + | Phone | Unavailable | + + + Support + + +---------+ + | Name | Relationship | Address | Phone | + + +---------+ + | Bronwyn Hernández | ECON | Unknown | | + + +---------+ + Care Team Providers + +------+ + | Care Machinist/Machine Builder Name | Role | Phone | + +------+ + PCP | Unavailable | + +------+ + Encounter Details +--------+ + + + + | Date | Type | Department | Care Team | Description | +--------+ + + + + | 03/09/ | Orders Only | [facility] | James Baum RN | | | 2017 | | [facility] | | | | | | [place] [address] [address] | | | | | | [place] [address] | | | | | | [phone] | | | +--------+ + + + [...] as of this encounter Plan of Treatment Not on fileas of this encounter Visit Diagnoses Not on filein this encounter"
--- OUTSIDE RECORDS SUMMARY | ~2018-03-11 | XMS | Encounter Summary ---
Demographics + + + | Address | [address] | | | [place] [address] | + + + | Home Phone | | + + + | Preferred Language | Unknown | + + + | Marital Status | | + + + | Religion Affiliation | Unknown | + + + | Race | Unknown | + + + | Ethnic Group | Unknown | + + + Author + + + | Author | Glenda [facility] | + + + | Organization | [facility] | + + + | Address | Unknown | + + + | Phone | Unavailable | + + + Support + + +---------+ + | Name | Relationship | Address | Phone | + + +---------+ + | Bronwyn Hernández | ECON | Unknown | | + + +---------+ + Care Team Providers + +------+ + | Care Medical Oncology Physician Name | Role | Phone | + +------+ + PCP | Unavailable | + +------+ + Encounter Details +--------+ + + + + | Date | Type | Department | Care Team | Description | +--------+ + + + + | 03/09/ | Procedure | [facility] | | | | 2018 | Pass [address] | | | | | | [facility] | | | | | | [address] [facility] | | | | | | [place] [address] | | | | | | [phone] | | | +--------+ + + + [...]
--- OUTSIDE RECORDS SUMMARY | ~2018-03-11 | XMS | Encounter Summary ---
Demographics + + + | Address | [address] | | | [place] [address] | + + + | Home Phone | | + + + | Preferred Language | Unknown | + + + | Marital Status | | + + + | Roman Catholic Affiliation | Unknown | + + + | Race | Unknown | + + + | Ethnic Group | Unknown | + + + Author + + + | Author | Glenda [facility] | + + + | Organization | [facility] | + + + | Address | Unknown | + + + | Phone | Unavailable | + + + Support + + +---------+ + | Name | Relationship | Address | Phone | + + +---------+ + | Bronwyn Hernández | ECON | Unknown | | + + +---------+ + Care Team Providers + +------+ + | Care Display Coordinator Name | Role | Phone | + [...] [address] | | | | | ([facility]) AV | | [place], [place] | | | | | block, rust | | [address] Phone: | | | | | degree ([facility]) | | [phone] | | | | | Near | | Fax: | | | | | syncope | | [phone] | | | | | | | | +--------+--------+ + + + + Encounter Details +--------+ + + + + | Date | Type | Department | Care Team | Description | +--------+ + + + + | 03/09/ | Anesthesia | [facility] | Sebastián Reeves MD | | | 2018 | Event | [facility] | [address] | | | | | Lab [address] | [place] [address] | | | | | [place] [address] | [phone] | | | | | [phone] | | | +--------+ + + + [...]
--- OUTSIDE RECORDS SUMMARY | ~2018-03-11 | XMS | Clinical Summary ---
Demographics + + + | Address | [address] | | | [place] [address] | + + + | Home Phone | | + + + | Preferred Language | Unknown | + + + | Marital Status | | + + + | Advent Affiliation | Unknown | + + + | Race | Unknown | + + + | Ethnic Group | Unknown | + + + Author + + + | Author | Angelito [facility] | + + + | Organization | [facility] | + + + | Address | Unknown | + + + | Phone | Unavailable | + + + Support + + +---------+ + | Name | Relationship | Address | Phone | + + +---------+ + | Bronwyn Gonzalez | ECON | Unknown | | + + +---------+ + Care Team Providers + +------+ + | Care Set Up Mechanic Stamping Machines Name | Role | Phone | + [...] | previously scheduled for a pacemaker in [place] next week. He | | presented with diaphoresis and lightheadedness and complete heart | | block with a ventricular escape of 40 bpm. He was paced | | transcutaneously by paramedics and transported to the emergency | | room at [facility]. 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 | + + + + + | [...] +--------+ + + + + | 03/09/ Hospital | | Austin Vallecillo, | AV block, 3rd degree | | 2018 - | Encounter | | Oswaldo Blake MD | (HCC) (Primary Dx); | | | | | | Near syncope; | | 03/10/ | | | | Paroxysmal atrial | | 2018 | | | | fibrillation (HCC) | +--------+ + + + + +---+ + | | Discharge | | | Summaries | | | - Abril, | | | MD Oswaldo - | [...] | | | Hussain | | | Noris Egg | | | : | | [...] | provider on | | | file. [place] | | | Abril, | | | Electroph | | | ysiology | | | [...] | | | Hospital: | | | [facility] | | | Scientific | | | AGRICULTURAL EQUIPMENT MECHANIC | | | defibrillat | | | or, on | | | February | | | 13, | | | 2018Hospita | | | l Course: | | | He was | | | [facility] | | [facility] | | and | | | [place] | | | via | | | [...] | scheduled | | | have a AGRICULTURAL EQUIPMENT MECHANIC | | | device | | | placed in | | | [place] | | | Jean | | | [...] | lab and a | | | AGRICULTURAL EQUIPMENT MECHANIC | | | defibrillat | | | [...] | | | LabsLab | | | 09/13/37521 | | | 1 WBC 6.52 | [...] | | Drug Store | | | [address] - | | | [place], | | | [place] - [address] | | | NEC OF [address] | | | [address], | | | [place] | | | [place] | | | [address] | | | Phone: | | | [phone] | | | 1 | | | losartan 25 | | | MG | | | tablet | | | metoprolol | | | 25 MG 24 hr | | | tablet | | | spironolact | | | one 25 MG | | | tablet | | | Follow-Up:K | | | en Carbajal, | | | [id number] | | | [address] | | | [place] | | | [place] | | | [place] | | | [phone] | | | [phone] | | | [...] | Signed by: | | | Oswaldo Carbajal, | | | | | | 03/11/2018, | | | 9:11 AM | +---+ + +--------+ +---+ +---+ | 03/09/ | Anesthesia | | Sebastián Reeves MD | | | 2017 | Event | | | | +--------+ +---+ +---+ | 03/09/ | Orders Only | | James Baum RN | | | 2017 | | | | | +--------+ +---+ +---+ | 03/09/ | Procedure | | | | | 2018 | Pass | | | | +--------+ +---+ +---+ from Last 3 Months Immunizations + + [...] + + + + Plan of Treatment Not on file Implants + +--------+--------+ +--------+--------+--------+ | Implanted | [...] | | 02/03/ | [id number] | | Men'S Leather Dress Belt Maker-D-03/09/2018Implanted: | c | Subcla | SCIENTIFIC | | 2019 | / | | Qty: 1 on 03/09/2018 by | Rhythm | christian | | | | 8 | | Oswaldo Carbajal MD | | | | | | /[id number] | | | Manage | | | | | 8 | | | ment | | | | | | + +--------+--------+ +--------+--------+--------+ | Acuity X4 | Cardia | Heart | [place] | | 02/03/ | 4671 | | Straight-03/09/2018Implanted: | c | | SCIENTIFIC | | 2019 | /[id number] | | Qty: 1 on 03/09/2018 by | Rhythm | | | | | 5 | | Oswaldo Carbajal MD | | | | | | /[id number] | | | Manage | | | | | 7 | | | ment | | | | | | + +--------+--------+ +--------+--------+--------+ | Ingevity | Cardia | Heart | [place] | | 03/10/ | 7740 | | Mri-03/09/2018Implanted: Qty: | c | | SCIENTIFIC | | 2018 | /[id number] | | 1 on 03/09/2018 by Abril | Rhythm | | | | | 1 | | MD Oswaldo | | | | | | /[id number] | | | Manage | | | | | 9 | | | ment | | | | | | + +--------+--------+ +--------+--------+--------+ | Endotak [place] | Cardia | Heart | [place] | | 12/24/ | 0292 | | Sg-03/09/2018Implanted: Qty: 1 | c | | SCIENTIFIC | | 2019 | /[id number] | | on 03/09/2018 by Oswaldo Carbajal, | Rhythm | | | | | 3 | | MD | | | | | | /[id number] | | | Manage | | | [...] - | | | | | | 09/13/ | | | 2018 | | | 2:45 | | | PM PDT | | | | | | Access | | | ion: | | | [id number] | | | 1 | | | | | | | | | | | | | | | | | | | | | | | | | | | | | | | | | ___PRO | | | CEDURE | | | : AGRICULTURAL EQUIPMENT MECHANIC | | | | | | defibr | | | illato | | | r | | | implan | | | t.DATE | | | : | | | 03/09/ | | | 2018.H | | | ISTORY | | | [...] St. | | | | | | [place] | | | y's | | | [...] | | for a | | | AGRICULTURAL EQUIPMENT MECHANIC | | | pacema | | | [...] | | . A | | | AGRICULTURAL EQUIPMENT MECHANIC | | | device | | | [...] | | | a | | | Bingen | | | | | | Scient | | | ific, | | | model0 | | | 292, | | | serial | | | | | | number | | | | | | [id number] | | | lead | | | [...] | | | ch | | | [place] | | | | | | sheath [...] | | y the | | | Bingen | | | | | | Scient [...] number | | | | | | [id number] | | | lead | | | [...] | | and a | | | [place] | | | | | | select [...] | | | the | | | Bingen | | | | | | Scient [...] | | | a | | | Bingen | | | | | | Scient | | | ific, | | | model | | | 7740, | | | serial | | | | | | number | | | | | | [id number] | | | lead | | | [...] | | | a | | | Bingen | | | | | | Scient | | | ific | | | Dynage | | | n | | | CRTdef | | | ibrill | | | ator | | | (model | | | [id number], | | | | | | serial | | | | | | number | | | | | | [id number] | | | ). | | | [...] results section. | + +--------+ +---+ + from Last 3 Months Results CBC [...] | [facility] | | | performed at [facility], [address] | | LABORATORY | | | [address], | | | | | [place] [address] | | | + + + + + + + | Specimen | + + | Blood | + + + + + + + | Performing | Address | City/State/Zipcode | Phone Number | | Organization | | | | + + + + + | [facility] | [address] | [place] [address] | [phone] | | LABORATORY | Blvd[address] | | [...] (L) | 8.5 - 10.5 mg/dL | [facility] | | | | | LABORATORY | + + + + + | EGFR | >60Comment: GFR <60: | >60 mL/min/1.73m2 | [facility] | | | CHRONIC KIDNEY DISEASE, | [...] the | | | | | MDRD IDOK traceable | | | | | equation.Testing | | | | | performed at [facility], [address] | | | | | [facility], | | | | | [place] [address] | | | + + + + + + + | Specimen | + + | Blood | + + + + + + + | Performing | Address | City/State/Zipcode | Phone Number | | Organization | | | | + + + + + | [facility] | [address] | [place] [address] | [phone] | | LABORATORY | Blvd. | | [...] years Male XR CHEST 2 VIEW | [facility] | | FRONTAL AND LATERAL 03/09/2018 10:45 [...] - 03/09/2018 11:21 PM PDT HUSSAIN FRAIRE [id number] years | | MaleXR CHEST 2 VIEW [...] | + + + + + | [facility] | [address] | [facility] [address] | | + + + + + MRSA by PCR (03/09/2018 7:26 PM) + + + + + | Component | Value | Ref Range | Performed At | + + + + + | SOURCE | NARES(NOSE) | | [facility] | + + + + + | MRSA PCR | NEGATIVEComment: Testing | NEGATIVE | [facility] | | | performed at [facility];[address] | | | | | [address];[place] | | | | | [address] | | | + + + + + + + | Specimen | + + | Nasopharyngeal - | | Nares(Nose) | + + + + + + + | Performing | Address | City/State/Zipcode | Phone Number | | Organization | | | | + + + + + | [facility] | [address] | [place] [address] | | + + + + + [...] | + + + + + | [facility] | [address] | [place] [address] | | + + + + + [...] +------+-------+ + | MEDICARE | MEDICA | [id number] | | | [address] | | | RE | | | | [place] [address] | | | IP-OP | | | | | + +--------+ +------+-------+ + | UNITED HEALTHCARE | UNITED | [id number] | | | | | | | [...] Self | [birth year] Home: | [address] | | | al/Fam | | 1930 | [phone]- | [place] [address] | | | lokesh | | | [address] | | + +--------+ +--------+ + +
--- OUTSIDE RECORDS SUMMARY | ~2018-03-11 | XMS | Encounter Summary ---
Demographics + + + | Address | [address] | | | [place] [address] | + + + | Home Phone | | + + + | Preferred Language | Unknown | + + + | Marital Status | | + + + | Spiritism Affiliation | Unknown | + + + | Race | Unknown | + + + | Ethnic Group | Unknown | + + + Author + + + | Author | Glenda [facility] | + + + | Organization | [facility] | + + + | Address | Unknown | + + + | Phone | Unavailable | + + + Support + + +---------+ + | Name | Relationship | Address | Phone | + + +---------+ + | Bronwyn Hernández | ECON | Unknown | | + + +---------+ + Care Team Providers + +------+ + | Care Maintenance Construction Helper Name | Role | Phone | + +------+ + PCP | Unavailable | + +------+ + Encounter Details +--------+ + + + + | Date | Type | Department | Care Team | Description | +--------+ + + + + | 03/09/ | Orders Only | [facility] | James Baum RN | | | 2017 | | [facility] | | | | | | [place] [address] [address] | | | | | | [place] [address] | | | | | | [phone] | | | +--------+ + + + [...]
--- OUTSIDE RECORDS SUMMARY | ~2018-03-11 | XMS | Encounter Summary ---
Demographics + + + | Address | [address] | | | [place] [address] | + + + | Home Phone | | + + + | Preferred Language | Unknown | + + + | Marital Status | | + + + | Anglican Affiliation | Unknown | + + + | Race | Unknown | + + + | Ethnic Group | Unknown | + + + Author + + + | Author | Glenda [facility] | + + + | Organization | [facility] | + + + | Address | Unknown | + + + | Phone | Unavailable | + + + Support + + +---------+ + | Name | Relationship | Address | Phone | + + +---------+ + | Bronwyn Hernández | ECON | Unknown | | + + +---------+ + Care Team Providers + +------+ + | Care Car Rental Sales Assistant Name | Role | Phone | + [...] | | Internal | Diagnoses | | [facility] | | | | Medicine | 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 | | [address] | | | | | fibrillation | | [address] | | | | | (HCC) AV | | [place], [place] | | | | | block, 3rd | | [address] Phone: | | | | | degree (HCC) | | [phone] | | | | | Near | | Fax: | | | | | syncope | | [phone] | | | | | | | | +--------+--------+ + + + + Encounter Details +--------+ + + + + | Date | Type | Department | Care Team | Description | +--------+ + + + + | 03/09/ | Hospital | [facility] | Austin Vallecillo, | AV block, 3rd degree | | 2018 - | Encounter | [facility] | [address] | (HCC) (Primary Dx); | | | | [address] | [place] [address] | Near syncope; | | 03/10/ | | [address] | [phone] | Paroxysmal atrial | | 2018 | | [place] [address] | | fibrillation (HCC) | | | | [phone] | Oswaldo Carbajal MD [address] | | | | | [address] | | | | | | [place] [address] | | | | | | [phone] | | | | | | | [...] may be different from the o marbella. [facility] PATIENT NAME: Hussain Hernández : 1930: AGE: [...] Diagnoses: Same as above. Procedures In Hospital: FREECULTR FREIGHT UNLOADER defibrillator, on March 10, 2018 Hospital Course: He was transferred from [facility] via [employer] helicopter sherley use of symptomatic complete heart block with a heart rate of 40 and a blood pressure of 90. He was previously scheduled have a FREIGHT UNLOADER device placed in [facility] because of the complete heart block, it was felt this should be done closer to home. He has a chronic left bundle-branch block and chronic systolic congestive heart failure with an ejection frac tion of 25%. Shortly after he arrived in the emergency room via helicopter, he was taken em ergently to the EP lab and a FREIGHT UNLOADER defibrillator was placed. Ventricular fibrillation was not [...] 100-62.5-25 mcg/puff inhaler Refills: 0 Generic drug: mqnoxxjxfym-bfwtcrafsxiy-ziccusudha vitamin C 1000 MG tablet Refills: 0 [...] Your Medications These medications were sent to [facility] [id number] [place] [address] [place] - [address] AT NEC OF [address], [place] [address] losartan 25 MG tablet metoprolol 25 MG 24 hr tablet spironolactone 25 MG tablet Follow-Up: Oswaldo Carbajal MD [address] [place] [address] [address] [place] [id number] Schedule an appointment as soon as possible for a visit in 1 week For wound re-check WITH summer law clerk took 30 minutes, to include final [...] usage. Your appointments will be at the [facility] in [place] across from the [facility]. The address is [address] [place] [address]. The office is located on the [address] [place] [address]. This appointment should already be scheduled for you, but if not, please call [phone] to schedule your appointment. [facility] [...] ask to speak with the nurse at [phone]. There are certain signs of infection to [...] at home, please call the office at [phone]. in this encounter Medications at Time of [...] | | | ion: | | | [id number] | | | 1 | | | | | | | | | | | | | | | | | | | | | | | | | | | | | | | | | ___PRO | | | CEDURE | | | : FREIGHT UNLOADER | | | | | | defibr [...] St. | | | | | | [place] | | | y's | | | [...] | | for a | | | FREIGHT UNLOADER | | | pacema | | | [...] | | . A | | | FREIGHT UNLOADER | | | device | | | [...] | | | a | | | Newton | | | | | | Scient | | | ific, | | | model0 | | | 292, | | | serial | | | | | | number | | | | | | [id number] | | | lead | | | [...] | | | ch | | | [place] | | | | | | sheath [...] | | y the | | | Newton | | | | | | Scient [...] number | | | | | | [id number] | | | lead | | | [...] | | | the | | | Newton | | | | | | Scient [...] | | | a | | | Newton | | | | | | Scient | | | ific, | | | model | | | 7740, | | | serial | | | | | | number | | | | | | [id number] | | | lead | | | [...] | | | a | | | Newton | | | | | | Scient | | | ific | | | Dynage | | | n | | | CRTdef | | | ibrill | | | ator | | | (model | | | [id number], | | | | | | serial | | | | | | number | | | | | | [id number] | | | ). | | | That | | | device | | | was | | | placed | | | into | | | the | | | left | | | prepec | | | liezth | | | region | | | [...] | [facility] | | | performed at [facility], [address] | | LABORATORY | | | [address], | | | | | [place] [address] | | | + + + + + + + | Specimen | + + | Blood | + + + + + + + | Performing | Address | City/State/Zipcode | Phone Number | | Organization | | | | + + + + + | [facility] | [address] | [place] [address] | [phone] | | LABORATORY | Blvd. | | [...] the | | | | | MDRD IDVT traceable | | | | | equation.Testing | | | | | performed at [facility], [address] | | | | | [facility], | | | | | [place] [address] | | | + + + + + + + | Specimen | + + | Blood | + + + + + + + | Performing | Address | City/State/Zipcode | Phone Number | | Organization | | | | + + + + + | [facility] | [address] | [place] [address] | [phone] | | LABORATORY | Blvd. | | [...] - 03/09/2018 11:21 PM PDT HUSSAIN FRAIRE [id number] years | | MaleXR CHEST 2 VIEW [...] | [address] | [place] [address] | | + + + + + MRSA by PCR (03/09/2018 7:26 PM) + + + + + | Component | Value | Ref Range | Performed At | + + + + + | SOURCE | NARES(NOSE) | | [facility] | + + + + + | MRSA PCR | NEGATIVEComment: Testing | NEGATIVE | [facility] | | | performed at [facility] | | | | | [address];[place] | | | | | [address] | | | + + + + + + + | Specimen | + + | Nasopharyngeal - | | Nares(Nose) | + + + + + + + | Performing | Address | City/State/Zipcode | Phone Number | | Organization | | | | + + + + + | [facility] | [address] | [place] [address] | | + + + + + [...] [facility] | [address] | [place] [address] | | + + + + + [...] | | | | [facility] at 0900 | | | | [...] | | | | | | infusion loans consultant to EP lab | | | | | | + +---------+ +--------+---+---+ +---+---+ | | | +---+---+ in this encounter
--- OUTSIDE RECORDS SUMMARY | ~2018-03-11 | XMS | Clinical Summary ---
Demographics + + + | Address | [address] | | | [place] [address] | + + + | Home Phone | | + + + | Preferred Language | Unknown | + + + | Marital Status | | + + + | Denominational Affiliation | Unknown | + + + | Race | Unknown | + + + | Ethnic Group | Unknown | + + + Author + + + | Author | [facility] | + + + | Organization | [facility] | + + + | Address | Unknown | + + + | Phone | Unavailable | + + + Support + + +---------+ + | Name | Relationship | Address | Phone | + + +---------+ + | Bronwyn Gonzalez | ECON | Unknown | | + + +---------+ + Care Team Providers + +------+ + | Care Ticker Wirer Name | Role | Phone | + [...] | previously scheduled for a pacemaker in [place] next week. He | | presented with diaphoresis and lightheadedness and complete heart | | block with a ventricular escape of 40 bpm. He was paced | | transcutaneously by paramedics and transported to the emergency | | room at [facility]. 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 | + + + + [...] | | | Hospital: | | | [facility] | | | Scientific | | | PRIVATE WATCHMAN | | | defibrillat | | | or, on | | | February | | | 13, | | | 2018Hospita | | | l Course: | | | He was | | | [facility] | | [facility] | | and | | | [place] | | | via | | | [...] | scheduled | | | have a PRIVATE WATCHMAN | | | device | | | placed in | | | [place] | | | Jean | | | [...] | lab and a | | | PRIVATE WATCHMAN | | | defibrillat | | | [...] | | | LabsLab | | | 09/13/23007 | | | 1 WBC 6.52 | [...] | | Drug Store | | | [address] - | | | [place], | | | [place] - [address] | | | [address] OF [address] | | | [address], | | | [place] | | | [place] | | | [address] | | | Phone: | | | [...] | | en [place], | | | [id number] | | | [address] | | | [place] | | | [place] | | | [place] | | | [phone] | | | [phone] | | | [...] | | 02/03/ | [id number] | | Overweaver-D-03/09/2018Implanted: | c | Subcla | SCIENTIFIC | [...] | | SCIENTIFIC | | 2019 | /[id number] | | Qty: 1 on 03/09/2018 by | Rhythm | | | | | 5 | | Oswaldo Carbajal MD | | | | | | /[id number] | | | Manage | | | | | 7 | | | ment | | | | | | + +--------+--------+ +--------+--------+--------+ | Ingevity | Cardia | Heart | [place] | | 03/10/ | 7740 | | Mri-03/09/2018Implanted: Qty: | c | | SCIENTIFIC | | 2018 | /[id number] | | 1 on 03/09/2018 by Abril | Rhythm | | | | | 1 | | MD Oswaldo | | | | | | /[id number] | | | Manage | | | | | 9 | | | ment | | | | | | + +--------+--------+ +--------+--------+--------+ | End[employer]ak [place] | Cardia | Heart | [place] | | 12/24/ | 0292 | | Sg-03/09/2018Implanted: Qty: 1 | c | | SCIENTIFIC | | 2019 | /[id number] | | on 03/09/2018 by Oswaldo Carbajal, | Rhythm | | | | | 3 | | MD | | | | | | /[id number] | | | Manage | | | [...] | | | ion: | | | [id number] | | | 1 | | | | | | | | | | | | | | | | | | | | | | | | | | | | | | | | | ___PRO | | | CEDURE | | | : PRIVATE WATCHMAN | | | | | | defibr [...] St. | | | | | | [place] | | | y's | | | [...] | | for a | | | PRIVATE WATCHMAN | | | pacema | | | [...] | | . A | | | PRIVATE WATCHMAN | | | device | | | [...] | | | a | | | Anson | | | | | | Scient | | | ific, | | | model0 | | | 292, | | | serial | | | | | | number | | | | | | [id number] | | | lead | | | [...] | | | ch | | | [place] | | | | | | sheath [...] | | y the | | | Anson | | | | | | Scient [...] number | | | | | | [id number] | | | lead | | | [...] | | and a | | | [place] | | | | | | select [...] | | | the | | | [facility]son | | | | | | Scient [...] | | | a | | | Anson | | | | | | Scient | | | ific, | | | model | | | 7740, | | | serial | | | | | | number | | | | | | [id number] | | | lead | | | [...] | | | a | | | Anson | | | | | | Scient | | | ific | | | Dynage | | | n | | | CRTdef | | | ibrill | | | ator | | | (model | | | [id number], | | | | | | serial | | | | | | number | | | | | | [id number] | | | ). | | | [...] | [facility] | | | performed at [facility], [address] | | LABORATORY | | | [address], | | | | | [place] [address] | | | + + + + + + + | Specimen | + + | Blood | + + + + + + + | Performing | Address | City/State/Zipcode | Phone Number | | Organization | | | | + + + + + | [facility] | [address] | [place] [address] | [phone] | | LABORATORY | [address] | | [...] (L) | 8.5 - 10.5 mg/dL | [facility] | | | | | LABORATORY | + + + + + | EGFR | >60Comment: GFR <60: | >60 mL/min/1.73m2 | [facility] | | | CHRONIC KIDNEY DISEASE, | [...] the | | | | | MDRD IDAR traceable | | | | | equation.Testing | | | | | performed at [facility], [address] | | | | | [facility], | | | | | [place] [address] | | | + + + + + + + | Specimen | + + | Blood | + + + + + + + | Performing | Address | City/State/Zipcode | Phone Number | | Organization | | | | + + + + + | [facility] | [address] | [place] [address] | [phone] | | LABORATORY | Blvd. | | [...] - 03/09/2018 11:21 PM PDT HUSSAIN FRAIRE [id number] years | | MaleXR CHEST 2 VIEW [...] | + + + + + | [facility] | [address] | [facility] [address] | | + + + + + MRSA by PCR (03/09/2018 7:26 PM) + + + + + | Component | Value | Ref Range | Performed At | + + + + + | SOURCE | NARES(NOSE) | | [facility] | + + + + + | MRSA PCR | NEGATIVEComment: Testing | NEGATIVE | [facility] | | | performed at [facility];[address] | | | | | [address];[place] | | | | | [address] | | | + + + + + + + | Specimen | + + | Nasopharyngeal - | | Nares(Nose) | + + + + + + + | Performing | Address | City/State/Zipcode | Phone Number | | Organization | | | | + + + + + | [facility] | [address] | [place] [address] | | + + + + + [...] [facility] | [address] | [place] [address] | | + + + + + [...] +------+-------+ + | MEDICARE | MEDICA | [id number] | | | [address] | | | RE | | | | [place] [address] | | | IP-OP | | | | | + +--------+ +------+-------+ + | UNITED HEALTHCARE | UNITED | [id number] | | | | | | | [...] Self | [birth year] Home: | [address] | | | al/Fam | | 1930 | [phone] | [place] [address] | | | lokesh | | | [phone] | | + +--------+ +--------+ + +
--- OUTSIDE RECORDS SUMMARY | ~2018-03-11 | XMS | Encounter Summary ---
Demographics + + + | Address | [address] | | | [place] [address] | + + + | Home Phone | | + + + | Preferred Language | Unknown | + + + | Marital Status | | + + + | Presybeterian Affiliation | Unknown | + + + | Race | Unknown | + + + | Ethnic Group | Unknown | + + + Author + + + | Author | [facility] | + + + | Organization | [facility] | + + + | Address | Unknown | + + + | Phone | Unavailable | + + + Support + + +---------+ + | Name | Relationship | Address | Phone | + + +---------+ + | Bronwyn Hernández | ECON | Unknown | | + + +---------+ + Care Team Providers + +------+ + | Care Instructor Business Education Name | Role | Phone | + [...] | ([facility]) AV | | [place], [place] | | | | | block, [facility] | | [address] Phone: | | | | | degree ([facility]) | | [phone] | | | | | Near | | Fax: | | | | | syncope | | [phone] | | | | | | | | +--------+--------+ + + + + Encounter Details +--------+ + + + + | Date | Type | Department | Care Team | Description | +--------+ + + + + | 03/09/ | Anesthesia | [facility] | Sebastián Reeves MD | | | 2018 | Event | [facility] | [address] | | | | | Lab [address] | [place] [address] | | | | | [place] [address] | [phone] | | | | | [phone] | | | +--------+ + + + [...]
--- OUTSIDE RECORDS SUMMARY | ~2018-03-11 | XMS | Encounter Summary ---
Demographics + + + | Address | [address] | | | [place] [address] | + + + | Home Phone | | + + + | Preferred Language | Unknown | + + + | Marital Status | | + + + | Zoroastrianism Affiliation | Unknown | + + + | Race | Unknown | + + + | Ethnic Group | Unknown | + + + Author + + + | Author | [facility] | + + + | Organization | [facility] | + + + | Address | Unknown | + + + | Phone | Unavailable | + + + Support + + +---------+ + | Name | Relationship | Address | Phone | + + +---------+ + | Bronwyn Hernández | ECON | Unknown | | + + +---------+ + Care Team Providers + +------+ + | Care Foam Rubber Mixer Name | Role | Phone | + +------+ + PCP | Unavailable | + +------+ + Encounter Details +--------+ + + + + | Date | Type | Department | Care Team | Description | +--------+ + + + + | 03/09/ | Procedure | [facility] | | | | 2018 | Pass [address] | | | | | | [facility] | | | | | | [address] [facility] | | | | | | [place] [address] | | | | | | [phone] | | | +--------+ + + + [...]
[~2018-03-11 09:58] MED LIST changes: +COZAAR25 MG PO; +NEURONTIN300 MG PO; +PRESERVISION A1 EACH PO; +TOPROL XL25 MG PO; +TRELEGY ELLIPT1 EACH INH
--- OUTSIDE RECORDS SUMMARY | 2018-03-11 10:04 | XMS ---
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 [place] VISIT COUNT (12 MO.) [address] TOTAL 6 NOTE: Visits indicate total known visits. ED/C VISIT TRACKING (12 MO.) 03/11/2018 09:59 [facility] TYPE: Emergency COMPLAINT: - POST OP PROBLEMS 03/09/2018 18:46 [facility] TYPE: Emergency DIAGNOSES: - Syncope and collapse - Atrioventricular block, complete 03/09/2018 14:44 [facility] TYPE: Emergency COMPLAINT: - HEART BLOCK 11/01/2017 06:13 [facility] TYPE: Emergency COMPLAINT: - NECK PAIN/NO INJURY DIAGNOSES: - Personal history of nicotine dependence - Chronic obstructive pulmonary disease, unspecified - Other fci (current) drug therapy - Old myocardial infarction - Cervicalgia - Zoster without complications - Spondylosis, unspecified - Occlusion and stenosis of unspecified carotid artery - Pain in right arm 07/30/2017 08:17 [facility] TYPE: Emergency COMPLAINT: - DIFFICULTY BREATHING 06/21/2017 13:43 [facility] TYPE: Emergency COMPLAINT: - SOB DIAGNOSES: - Chronic obstructive pulmonary disease, unspecified - Shortness of breath - OTHER SPECIFIED POSTPROCEDURAL STATES - Other terminal operations manager (current) drug therapy - Other specified postprocedural states - Nicotine dependence, unspecified, uncomplicated - half-way (current) use of anticoagulants - Presence of coronary angioplasty implant and graft - Unspecified atrial fibrillation - Old myocardial infarction - Heart failure, unspecified INPATIENT VISIT TRACKING (12 MO.) 03/09/2018 18:46 [facility] TYPE: Cardiology DIAGNOSES: - Paroxysmal atrial fibrillation - Atrioventricular block, complete - Syncope and collapse [email or web address]
[2018-03-11] MEDS ORDERED: LASIX20 MG PO (10:27)
== END 2018-03-11 10:42 | disposition home or self-care (01) ==
LOC: ED 09:58
DX: Z48.812 Encounter for surgical aftercare following surgery on the circulatory system (principal); I25.2 Old myocardial infarction; I50.9 Heart failure, unspecified; Z87.891 Personal history of nicotine dependence; Z79.899 Other long term (current) drug therapy; Z95.0 Presence of cardiac pacemaker
CPT/HCPCS: 99283

== ENCOUNTER 2018-03-23 12:45 | Observation (INO) | payer MEDICARE, OTHER ==
[~2018-03-23] VITALS: Ht 170.2 cm; Wt 66.3 kg
--- OUTSIDE RECORDS SUMMARY | ~2018-03-23 | XMS | Encounter Summary ---
Demographics + + + | Address | [address] | | | [place] [address] | + + + | Home Phone | | + + + | Preferred Language | Unknown | + + + | Marital Status | | + + + | Confucianist Affiliation | Unknown | + + + | Race | Unknown | + + + | Ethnic Group | Unknown | + + + Author + + + | Author | [facility] | + + + | Organization | [facility] | + + + | Address | Unknown | + + + | Phone | Unavailable | + + + Support + + +---------+ + | Name | Relationship | Address | Phone | + + +---------+ + | Bronwyn Hernández | ECON | Unknown | | + + +---------+ + Care Team Providers + +------+ + | Care Sorting Machine Operator Name | Role | Phone | + +------+ + PCP | Unavailable | + +------+ + Reason for Visit + + + | Reason | Comments | + + + | Bradycardia | [facility], 3rd degree heart block | + + + Auth/Cert +--------+--------+ + + + + | Status | Reason | Specialty | Diagnoses / | Referred By | Referred To | | | | | Procedures | Contact | Contact | +--------+--------+ + + + + | | | Internal | Diagnoses | | [facility] 4th | | | | Medicine | 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 | | [address] | | | | | fibrillation | | [address] | | | | | (HCC) AV | | [place], [place] | | | | | block, 3rd | | [address] Phone: | | | | | degree (HCC) | | [phone] | | | | | Near | | Fax: | | | | | syncope | | [phone] | | | | | | | | +--------+--------+ + + + + Encounter Details +--------+ + + + + | Date | Type | Department | Care Team | Description | +--------+ + + + + | 03/09/ | Hospital | [facility] | Austin Vallecillo, | AV block, 3rd degree | | 2018 - | Encounter | [facility] 4[facility] | [address] | (HCC) (Primary Dx); | | | | [address] [facility] | [place] [address] | Near syncope; | | 03/10/ | | [address] | [phone] | Paroxysmal atrial | | 2018 | | [place] [address] | | fibrillation (HCC) | | | | [phone] | Oswaldo Samuels MD [address] | | | | | | [address] | | | | | | [place] [address] | | | | | | [phone] | | | | | | | | +--------+ + + + + Social History + +-------+ +--------+ + | Tobacco Use | Types | Packs/Day | Years | Date | | | | | Used | | + +-------+ +--------+ + | Former Smoker | | | | Quit: 08/09/2017 | + +-------+ +--------+ + + +---+---+---+ | Smokeless Tobacco: | | | | | Never Used | | | | + +---+---+---+ + + + | Sex Assigned at | Date Recorded | | | | + + + | Not on file | | + + + as of this encounter Last Filed Vital Signs + + + + | Vital Sign | Reading | Time Taken | + + + + | Blood Pressure | 121/66 | 03/10/2018 12:27 PM PDT | + + + + | Pulse | 60 | 03/10/2018 12:27 PM PDT | + + + + | Temperature | 37 C (98.6 F) | 03/10/2018 12:27 PM PDT | + + + + | Respiratory Rate | 16 | 03/10/2018 12:27 PM PDT | + + + + | Oxygen Saturation | 92% | 03/10/2018 12:27 PM PDT | + + + + | Inhaled Oxygen | - | - | | Concentration | | | + + + + | Weight | 69.4 kg (153 lb) | 03/09/2018 11:26 PM PDT | + + + + | Height | 172.7 cm (5' 8") | 03/09/2018 11:26 PM PDT | + + + + | Body Mass Index | 23.26 | 03/09/2018 11:26 PM PDT | + + + + in this encounter Discharge Summaries Oswaldo Samuels MD - 03/10/2018 5:09 PM PDTFormatting of this note may be different from the o marbella. [facility] PATIENT NAME: Hussain Hernández : 1930: AGE: 88 y.o. ADMISSION DATE: 03/09/2018 DISCHARGE DATE: 03/10/2018 PRIMARY CARE: No primary care provider on file. Oswaldo Samuels MD Electrophysiology DISCHARGE SUMMARY [facility]: Complete heart block Admission Diagnoses: FULL PROBLEM LIST Patient Active Problem List Diagnosis Complete heart block (HCC) Dilated cardiomyopathy (HCC) Paroxysmal atrial fibrillation (HCC) Pulmonary emphysema (HCC) History of spinal fusion History of gout History of left bundle-branch block Three-vessel coronary disease Chronic systolic congestive heart failure Discharge Diagnoses: Same as above. Procedures In Hospital: [facility] VERIFYING MACHINE OPERATOR defibrillator, on March 10, 2018 Hospital Course: He was transferred from [facility] via [employer] helicopter sherley use of symptomatic complete heart block with a heart rate of 40 and a blood pressure of 90. He was previously scheduled have a VERIFYING MACHINE OPERATOR device placed in [facility] because of the complete heart block, it was felt this should be done closer to home. He has a chronic left bundle-branch block and chronic systolic congestive heart failure with an ejection frac tion of 25%. Shortly after he arrived in the emergency room via helicopter, he was taken em ergently to the EP lab and a VERIFYING MACHINE OPERATOR defibrillator was placed. Ventricular fibrillation was not induced because he had eaten previously and it was deemed that the risks outweighed the claudia efit of sedation. Good pacing and sensing thresholds were achieved. A postoperative chest x-ray revealed good lead placement and he remained stable on telemetry. The next day, he fe lt much better and ambulated in the sims without difficulty. He was sent home in the aftern oon of March 10, 2018 in satisfactory condition. Discharge Exam: PHYSICAL EXAM: General Appearance: Alert, oriented, cooperative, no distress, appears younger than his sta blanka age HEENT: Extraocular movements intact.. No xanthelasmas. No jaundice. The pacer site looked good. There was some bruising but no hematoma or sign of infection. NECK: No JVD, No lymphadenopathy. Trachea is at midline. CARDIAC: Normal S1 and S2 heart sounds. No murmurs, rubs, or gallops. Non-displaced, non-appiah stained apical impulse. CHEST: Normal symmetrical chest excursion. Good bilateral air entry with no crackles or whe ezing. No percussion dullness. ABDOMEN: Non tender, non distended, bowel sounds present, no organomegaly. EXTREMITIES: 2+ pulses radial and pedal, symmetric. NEURO: No focal deficits. Normal bulk, power, and tone. SKIN: No bruises or rash. Warm and dry. Vital Signs: Temp: 98.6 F (37 C) BP: 121/66 Heart Rate: 60 Resp: 16 SpO2: 92 % O2 Flow Rate (L/min): 0 L/min Last Wt. Before discharge: Weight: 69.4 kg (153 lb) Wt. Admission: Weight: 69.4 kg (153 lb) Labs: Recent Labs Lab 03/10/18 0441 WBC 6.52 RBC 3.52* HGB 11.7* HCT 33.9* MCV 96.2 MCH 33.2 MCHC 34.5 RDW 51.2 PLT 175 MPV 10.0 DIFFTYPE AUTOMATED Recent Labs Lab 03/10/18 0441 WBC 6.52 HGB 11.7* HCT 33.9* NA 142 K 4.2 CL 109 CO2 24 BUN 29* Discharge Medications: Medication List START taking these medications metoprolol 25 MG 24 hr tablet QTY: 30 tablet Refills: 11 Commonly known as: TOPROL-XL Take 1 tablet by mouth daily with breakfast. spironolactone 25 MG tablet QTY: 30 tablet Refills: 11 Commonly known as: ALDACTONE Take 1 tablet by mouth daily. CHANGE how you take these medications losartan 25 MG tablet QTY: 30 tablet Refills: 11 Commonly known as: COZAAR Take 1 tablet by mouth nightly. What changed: when to take this CONTINUE taking these medications acetaminophen 500 MG tablet Refills: 0 Commonly known as: TYLENOL albuterol 108 (90 Base) MCG/ACT inhaler Refills: 0 Commonly known as: PROVENTIL HFA;VENTOLIN HFA allopurinol 300 MG tablet Refills: 0 Commonly known as: ZYLOPRIM atorvastatin 20 MG tablet Refills: 0 Commonly known as: LIPITOR cholecalciferol 1000 units tablet Refills: 0 Commonly known as: VITAMIN D-3 furosemide 40 MG tablet Refills: 0 Commonly known as: LASIX gabapentin 300 MG capsule Refills: 0 Commonly known as: NEURONTIN Magnesium 400 MG Caps Refills: 0 PRESERVISION AREDS PO Refills: 0 rivaroxaban 10 MG tablet Refills: 0 Commonly known as: XARELTO tamsulosin 0.4 MG capsule Refills: 0 Commonly known as: FLOMAX TRELEGY ELLIPTA 100-62.5-25 mcg/puff inhaler Refills: 0 Generic drug: zkqdygwqwhm-qowwgcfapgzw-xficklehjn vitamin C 1000 MG tablet Refills: 0 You might also be taking other medications not listed above. If you have questions about an y of your other medications, talk to the person who prescribed them or your Primary Care Pro vider. STOP taking these medications fludrocortisone 0.1 MG tablet Commonly known as: FLORINEF metoprolol 25 MG tablet Commonly known as: LOPRESSOR potassium chloride 10 MEQ tablet Commonly known as: K-DUR Where to Get Your Medications These medications were sent to [facility] [id number] [place] [address] [place] - [address] AT NEC OF & [address], [place] [address] losartan 25 MG tablet metoprolol 25 MG 24 hr tablet spironolactone 25 MG tablet Follow-Up: Oswaldo Samuels MD [address] [place] [address] [address] [place] [id number] Schedule an appointment as soon as possible for a visit in 1 week For wound re-check WITH police officer booking took 30 minutes, to include final examination, discussion of admission, and prepa ration of prescriptions, instructions for on-going care, follow-up and documentation of disc harge summary. If patient has any further questions or concerns prior to above, instructed to call our off ice. Signed by: Oswaldo Samuels MD 03/11/2018, 9:11 AM in this encounter Discharge Instructions Evelyn Dos Santos NP - 03/10/2018Pacemaker Discharge Instructions You have just received a permanent pacemaker (PPM). You probably have a lot of questions co ncerning your new implanted device. There are several things that you need to know and a few things that you must do that are very important, especially over the next four weeks. FOLLOW-UP APPOINTMENTS First, be sure to come for all of your post-operative check-ups. The first visit is usually to check that your incision is healing properly. You will be seen by the Nurse or Nurse Pra ctitioner in approximately 7-10 days after pacemaker implantation. The next visits are to kristy that your pacemaker is functioning properly. You will be seen by a Nurse or Device Exper t for these follow-up device clinic checks. At each visit, you will be instructed on how oft en your pacemaker will need to be checked either in the office or via your home monitoring s ystem. During your check-ups, your pacemaker will be checked for proper functioning, battery status and optimized to settings that will best suit your heart. You can expect that your p acemaker battery (sometimes known as the generator ) will last from 7-10 years, dependi ng on usage. Your appointments will be at the [facility] in [place] [facility]. The address is [address] [place] [address]. The office is located on the [address] [place] [address]. This appointment should already be scheduled for you, but if not, please call [phone] to schedule your appointment. INCISION SITE CARE You may have a small to moderate amount of pain over the next 48 hours. Take Tylenol 625mg every 4-6 hours for the next 24 hours. After the first 24 hours, you can take 500mg of Tylen ol every 6 hours as needed for pain.Your incision is closed with Dermabond. DO NOT GET THIS INCISION OR THE DERMABOND WET FOR 7 DAYS AFTER SURGERY. Then, it is OK to take showers only. The dermabond may start to peel and curl along the edges, but should not be removed prior t o your nurse visit. This aids in healing the incision properly. There are no stitches to be removed. There are several layers of stitches internally that will be naturally absorbed by your body over time. You will have a follow up appointment in approximately 7-10 days with t Nurse or Nurse Practitioner. FOR ALL INCISIONS After you go home from the hospital, you may sponge around the shoulder/pacemaker incision site with soap and water or a baby wipe. Please make sure that you DO NOT GET THE INCISION S ITE WET. Also, do not touch your incision directly or apply any creams, lotions, ointments, salves, alcohol or powder to the incision line. You may take your first full shower 7 days a fter your pacemaker implantation date. WHEN TO CALL OUR OFFICE If you have any questions about how the incision is healing or you are worried that the in cision is not healing properly, please call our office and ask to speak with the nurse at . There are certain signs of infection to watch for as your incision line is heali ng. Please call the office if your notice any green drainage, redness, splitting along the i ncision line, significant swelling or a bruise bigger than the palm of your hand, or if you start running a fever greater than 100.4 degrees. If you develop symptoms similar to those you had prior to pacemaker insertion (ie. Unusual fatigue, dizziness, fainting or near fainting, palpitations, chest pain or difficulty breath ing), please call our office. WHAT TO EXPECT You can expect the incision line and insertion site to be sore for the next 1-2 weeks. This is normal. You may take pain medicine, as needed. Women may wish to pad the incision site w ith a clean washcloth or handkerchief to keep the bra strap from irritating the incision. WHAT TO DO/WHAT NOT TO DO Do not lift anything heavier than 10 pounds with the arm on the side of your pacemaker inse rtion site for the next 1 WEEK. Do not lift your arm above your head or past shoulder height for the next 1 WEEK. These two activity limitations are exceptionally important as the lead s of the pacemaker heal and secure into the heart tissue. Any excessive activity could dislo dge the lead (or leads) that is in your heart connected to your pacemaker. DO NOT IMMOBILIZE YOUR ARM OR SHOULDER. You may resume driving after one week. You may use all of the appliances in your home, incl uding microwaves, electric blankets, computers, TV/DVD players, and drills. Now that you hav e a pacemaker, georgiana hammering should be avoided. You may use arc welders and roto-tillers wi th caution. Before you go home from the hospital, you will receive a temporary ID card and manual that has information about your new pacemaker and the physician who implanted it. You will receiv e a permanent ID card in the mail, in approximately 4-6 weeks from the company that manufact ured your device. It is very important that you keep this card with you at ALL TIMES, especi ally in the case of an emergency. You can travel and fly without restriction. You can go through metal detectors in the airpo rt; however, your pacemaker may trigger alarms. You should show your ID card to security per sonnel before going through the metal detector. If you have any questions about your pacemaker once you are at home, please call the office at [phone]. in this encounter Medications at Time of Discharge + + +--------+---------+ + + | Medication | Sig. | Disp. | Refills | Start | End Date | | | | | | Date | | + + +--------+---------+ + + | acetaminophen | Take 500 mg by mouth | | | | | | (TYLENOL) 500 MG | 2 (two) times | | | | | | tablet | daily. | | | | | + + +--------+---------+ + + | albuterol | Inhale 2 puffs into | | | | | | (PROVENTIL | the lungs every 4 | | | | | | HFA;VENTOLIN HFA) | (four) hours as | | | | | | 108 (90 Base) | needed for Wheezing. | | | | | | MCG/ACT inhaler | | | | | | + + +--------+---------+ + + | allopurinol | Take 300 mg by mouth | | | | | | (ZYLOPRIM) 300 MG | daily. | | | | | | tablet | | | | | | + + +--------+---------+ + + | Ascorbic Acid | Take 1,000 mg by | | | | | | (VITAMIN C) 1000 MG | mouth daily. | | | | | | tablet | | | | | | + + +--------+---------+ + + | atorvastatin | Take 20 mg by mouth | | | | | | (LIPITOR) 20 MG | nightly. | | | | | | tablet | | | | | | + + +--------+---------+ + + | cholecalciferol | Take 2,000 Units by | | | | | | (VITAMIN D-3) 1000 | mouth daily. | | | | | | units tablet | | | | | | + + +--------+---------+ + + | | Inhale 1 puff into | | | | | | fluticasone-umeclidi | the lungs daily. | | | | | | nium-vilanterol | | | | | | | (TRELEGY ELLIPTA) | | | | | | | 100-62.5-25 mcg/puff | | | | | | | inhaler | | | | | | + + +--------+---------+ + + | furosemide (LASIX) | Take 40 mg by mouth | | | | | | 40 MG tablet | daily. | | | | | + + +--------+---------+ + + | gabapentin | Take 300 mg by mouth | | | | | | (NEURONTIN) 300 MG | nightly. | | | | | | capsule | | | | | | + + +--------+---------+ + + | losartan (COZAAR) | Take 1 tablet by | 30 | 11 | 03/10/20 | | | 25 MG tablet | mouth nightly. | tablet | | 18 | | + + +--------+---------+ + + | Magnesium 400 MG | Take 400 mg by mouth | | | | | | CAPS | daily. | | | | | + + +--------+---------+ + + | metoprolol | Take 1 tablet by | 30 | 11 | 03/11/20 | | | (TOPROL-XL) 25 MG 24 | mouth daily with | tablet | | 18 | 9 | | hr tablet | breakfast. | | | | | + + +--------+---------+ + + | Multiple | Take 60 mg by mouth | | | | | | Vitamins-Minerals | daily. | | | | | | (PRESERVISION AREDS | | | | | | | PO) | | | | | | + + +--------+---------+ + + | rivaroxaban | Take 20 mg by mouth | | | | | | (XARELTO) 10 MG | nightly. | | | | | | tablet | | | | | | + + +--------+---------+ + + | spironolactone | Take 1 tablet by | 30 | 11 | 03/11/20 | | | (ALDACTONE) 25 MG | mouth daily. | tablet | | 18 | 9 | | tablet | | | | | | + + +--------+---------+ + + | tamsulosin | Take 0.4 mg by mouth | | | | | | (FLOMAX) 0.4 MG | daily. | | | | | | capsule | | | | | | + + +--------+---------+ + + as of this encounter Plan of Treatment +--------+ + + + + | Date | Type | Specialty | Care Team | Description | +--------+ + + + + | 03/23/ | Documentati | Cardiology | | | | 2017 | on Only | | | | +--------+ + + + + | 03/23/ | Initial | Cardiology | Dudley Ely | | | 2018 | consult | | MD Cedric [address] | | | | | | [address] | | | | | | [place] [address] | | | | | | [phone] | | | | | | | | +--------+ + + + + | 04/19/ | Documentati | Cardiology | | | | 2017 | on Only | | | | +--------+ + + + + | 04/19/ | Office | Cardiology | Nicolette Ibarra | | | 2018 | Visit | | ADAN Collazo [address] | | | | | | [address] | | | | | | [place] [address] | | | | | | [phone] | | | | | | | | +--------+ + + + + | 06/13/ | Documentati | Cardiology | | | | 2017 | on Only | | | | +--------+ + + + + as of this encounter Procedures + +--------+ + + + | Procedure Name | Priori | Date/Time | Associated Diagnosis | Comments | | | ty | | | | + +--------+ + + + | CBC W/AUTO DIFF | Routin | 03/10/2018 | | Results for this | | (REFLEX TO MANUAL) | e - AM | 4:41 AM | | procedure are in the | | | | PDT | | results section. | + +--------+ + + + | BASIC METABOLIC | Routin | 03/10/2018 | | Results for this | | PANEL | e - AM | 4:41 AM | | procedure are in the | | | | PDT | | results section. | + +--------+ + + + | XR CHEST 2 VIEW | Routin | 03/09/2018 | | Results for this | | FRONTAL AND LATERAL | e | 10:45 PM | | procedure are in the | | | | PDT | | results section. | + +--------+ + + + | EP BIV ICD INSERTION | Routin | 03/09/2018 | | Results for this | | GENERATOR AND LEADS | e | 9:20 PM | | procedure are in the | | | | PDT | | results section. | + +--------+ + + + | MRSA BY PCR | Timed | 03/09/2018 | | Results for this | | | | 7:26 PM | | procedure are in the | | | | PDT | | results section. | + +--------+ + + + | XR CHEST 1 VIEW | Routin | 03/09/2018 | | Results for this | | | e | 6:13 PM | | procedure are in the | | | | PDT | | results section. | + +--------+ + + + in this encounter Results CBC w/auto diff (reflex to manual) (03/10/2018 4:41 AM) + + + + + | Component | Value | Ref Range | Performed At | + + + + + | WBC | 6.52 | 3.80 - 11.00 K/uL | [facility] | | | | | [facility] | + + + + + | RBC | 3.52 (L) | 4.20 - 5.70 M/uL | [facility] | | | | | [facility] | + + + + + | HGB | 11.7 (L) | 13.2 - 17.0 g/dL | [facility] | | | | | [facility] | + + + + + | HCT | 33.9 (L) | 39.0 - 50.0 % | [facility] | | | | | [facility] | + + + + + | MCV | 96.2 | 80.0 - 100.0 fl | [facility] | | | | | [facility] | + + + + + | MCH | 33.2 | 27.0 - 34.0 pg | [facility] | | | | | [facility] | + + + + + | MCHC | 34.5 | 32.0 - 35.5 g/dL | [facility] | | | | | [facility] | + + + + + | RDW SD | 51.2 | 37 - 53 fl | [facility] | | | | | [facility] | + + + + + | PLT | 175 | 150 - 400 K/uL | [facility] | | | | | [facility] | + + + + + | MPV | 10.0 | fl | [facility] | | | | | [facility] | + + + + + | DIFF TYPE | AUTOMATED | | [facility] | | | | | [facility] | + + + + + | NEUTROPHILS | 73.89 | % | [facility] | | | | | [facility] | + + + + + | LYMPHOCYTES | 14.22 | % | [facility] | | | | | [facility] | + + + + + | MONOCYTES | 10.04 | % | [facility] | | | | | [facility] | + + + + + | EOSINOPHILS | 1.42 | % | [facility] | | | | | [facility] | + + + + + | BASOPHILS | 0.43 | % | [facility] | | | | | [facility] | + + + + + | NEUTROPHILS ABS | 4.81 | 1.90 - 7.40 K/uL | [facility] | | | | | [facility] | + + + + + | LYMPHOCYTES ABS | 0.93 (L) | 1.00 - 3.90 K/uL | [facility] | | | | | [facility] | + + + + + | MONOCYTES ABS | 0.65 | 0.00 - 0.80 K/uL | [facility] | | | | | [facility] | + + + + + | EOSINOPHILS ABS | 0.09 | 0.00 - 0.50 K/uL | [facility] | | | | | [facility] | + + + + + | BASOPHILS ABS | 0.03Comment: Testing | 0.00 - 0.10 K/uL | [facility] | | | performed at [facility], [address] | | LABORATORY | | | [address], | | | | | [place] [address] | | | + + + + + + + | Specimen | + + | Blood | + + + + + + + | Performing | Address | City/State/Zipcode | Phone Number | | Organization | | | | + + + + + | [facility] | [address] | [place] [address] | [phone] | | LABORATORY | [address] | | | + + + + + Basic metabolic panel (03/10/2018 4:41 AM) + + + + + | Component | Value | Ref Range | Performed At | + + + + + | SODIUM | 142 | 135 - 145 mmol/L | [facility] | | | | | LABORAT[facility] | + + + + + | POTASSIUM | 4.2 | 3.5 - 4.9 mmol/L | [facility] | | | | | [facility] | + + + + + | CHLORIDE | 109 | 99 - 109 mmol/L | [facility] | | | | | [facility] | + + + + + | CO2 | 24 | 23 - 32 mmol/L | [facility] | | | | | LABORATORY | + + + + + | ANION GAP AGAP | 13 | 5 - 20 mmol/L | [facility] | | | | | LAB[facility]ORY | + + + + + | GLUCOSE | 123 (H) | 65 - 99 mg/dL | [facility] | | | | | LAB[facility] | + + + + + | BUN | 29 (H) | 8 - 25 mg/dL | [facility] | | | | | [facility] | + + + + + | CREATININE | 1.1 | 0.70 - 1.30 mg/dL | [facility] | | | | | LAB[facility] | + + + + + | BUN/CREAT | 26 | | [facility] | | | | | [facility] | + + + + + | CALCIUM | 8.3 (L) | 8.5 - 10.5 mg/dL | [facility] | | | | | [facility]ORY | + + + + + | EGFR | >60Comment: GFR <60: | >60 mL/min/1.73m2 | [facility] | | | CHRONIC KIDNEY DISEASE, | | LABORATORY | | | IF FOUND OVER A 3 MONTH | | | | | PERIOD.GFR <15: KIDNEY | | | | | FAILURE.FOR | | | | | AMERICANS, MULTIPLY THE | | | | | CALCULATED GFR BY | | | | | 1.210.This eGFR is | | | | | calculated using the | | | | | MDRD IDMS traceable | | | | | equation.Testing | | | | | performed at [facility], [address] | | | | [facility], | | | | | [place] [address] | | | + + + + + + + | Specimen | + + | Blood | + + + + + + + | Performing | Address | City/State/Zipcode | Phone Number | | Organization | | | | + + + + + | [facility] | [address] [facility] | [place] [address] | [phone] | | LABORATORY | [place]. | | | + + + + + X-ray chest frontal and lateral (Today) (03/09/2018 10:45 PM) + + + | Impressions | Performed At | + + + | 1. The patient is status post placement of a left chest wall | [facility] | | pacer with no complication. 2. Imaging findings consistent with | RADIOLOGY | | pulmonary edema. Electronically signed by Pan Espinal MD on | | | 03/09/2018 11:16 PM | | + + + + + + | Narrative | Performed At | + + + | HUSSAIN GERVACE EGG 1930 88 years Male XR CHEST 2 VIEW | [facility] | | FRONTAL AND LATERAL 03/09/2018 10:45 PM INDICATION: Third degree | RADIOLOGY | | AV block, device placement COMPARISON: Plain film, 03/09/2018 | | | TECHNIQUE: Two view chest, PA and lateral views FINDINGS: Moderate | | | enlargement of the heart is present. No mediastinal widening is | | | noted. Moderate calcification of the aortic arch is present. The | | | patient has a new left anterior chest wall pacer with 3 separate | | | leads. No pneumothorax or apical capping is present. Mild vascular | | | congestion is noted. Interstitial edema is present. | | + + + + + | Procedure Note | + + | [place], Rad Results In - 03/09/2018 11:21 PM PDT HUSSAIN FRAIRE [id number] years | | MaleXR CHEST 2 VIEW FRONTAL AND LATERAL03/09/2018 10:45 PMINDICATION: Third degree AV | | block, device placementCOMPARISON: Plain film, 03/09/2018TECHNIQUE: Two view chest, PA | | and lateral viewsFINDINGS: Moderate enlargement of the heart is present. No mediastinal | | widening is noted. Moderate calcification of the aortic arch is present. The patient has | | a new left anterior chest wall pacer with 3 separate leads. No pneumothorax or apical | | capping is present. Mild vascular congestion is noted. Interstitial edema is | | present.IMPRESSION:1. The patient is status post placement of a left chest wall pacer | | with no complication.2. Imaging findings consistent with pulmonary edema.Electronically | | signed by Pan Espinal MD on 03/09/2018 11:16 PM | |TECHNIQUE: Two view chest, PA and lateral views | | | |FINDINGS: Moderate enlargement of the heart is present. No mediastinal widening is noted. M oderate calcification of the aortic arch is present. The patient has a new left anterior noemi st wall pacer with 3 separate | |leads. No pneumothorax or apical capping is present. Mild vascular congestion is noted. Int erstitial edema is present. | | | |IMPRESSION: | |1. The patient is status post placement of a left chest wall pacer with no complication. | |2. Imaging findings consistent with pulmonary edema. | | | | | + + + + + + + | Performing | Address | City/State/Zipcode | Phone Number | | Organization | | | | + + + + + | [facility] | [address] | [place] [address] | | + + + + + EP ICD BIV Insertion generator/leads (03/09/2018 9:20 PM) + + + | Impressions | Performed At | + + + | FINAL IMPRESSION: 1. Good pacing and sensing thresholds. 2. | [facility] | | Suboptimal left ventricular lead position, but there were no other | RADIOLOGY | | alternative places available to place this lead other than an | | | epicardial placement. I have recommended trying this new position | | | and seeing how he does clinically. If he does not do well or if | | | the LV systolic function continues to deteriorate, consideration will | | | need to be given for an epicardial lead. Unfortunately, he has | | | severe COPD and severe LV systolic dysfunction, so that would be a | | | potentially risky procedure in this gentleman. 3. The | | | anticoagulation will be resumed tomorrow (apixaban is his request). | | | 4. Followup: 1 week (sooner if need be). Read by OSWALDO SAMUELS | | | 03/09/2018 10:57 P Electronically signed by Oswaldo Samuels MD on | | | 03/11/2018 5:09 PM | | + + + + + + | Narrative | Performed At | + + + | | [facility] | | | RADIOLOGY | | PROCEDURE: VERIFYING MACHINE OPERATOR defibrillator implant. DATE: 03/09/2018. | | | HISTORY: This 88-year-old gentleman was referred urgently by | | | Rasheed in the emergency room at [facility] because of | | | symptomatic complete heart block associated with relative | | | hypotension and a heart rate in the 40 beats per minute range. He | | | presented today with diaphoresis and some lightheadedness and felt | | | poorly. He was therefore transferred to [facility] | | | [place] for a VERIFYING MACHINE OPERATOR pacemaker. He has a baseline left bundle branch | | | block and severe LV systolic dysfunction with an ejection fraction of | | | 25-30 percent in the context of moderate MR and TR and moderate to | | | severe pulmonary hypertension. He has an ischemic cardiomyopathy | | | and has had 4 prior stents. A VERIFYING MACHINE OPERATOR device was planned for next week | | | in [place], [place], but because of his symptomatic complete | | | heart block, it was recommended that he get this device placed | | | locally. PROCEDURE NOTE: The patient was brought to the | | | electrophysiology laboratory in postabsorptive nonsedated | | | state. Dr. Reeves was present from anesthesia for the entire case, | | | and his presence was very helpful. He sedated the patient | | | minimally at my request because of his unstable clinical | | | situation. A total of 100 mcg intravenous fentanyl were given | | | throughout the case. The chest was prepped and draped in the usual | | | sterile fashion and locally anesthetized with 1 percent | | | xylocaine. The left subclavian vein was accessed 3 times with an | | | 18-gauge needle and 3 guidewires were placed into the vessel. A | | | 9-Kazakh introducer was placed into the subclavian vein, and through | | | that, a [employer], model 0292, serial number [id number] lead was | | | placed into the right ventricle and screwed into position towards the | | | apex. This was a single-coil lead. The lead was anchored with | | | two #1 Ethibond sutures. There was no diaphragmatic pacing at 10 | | | V. A 9-Kazakh Yg sheath was placed into the subclavian vein | | | and down into the right atrium. A [place] introducer was used to | | | access the coronary sinus after a moderate amount of | | | difficulty. This had a fairly vertical takeoff and it was | | | difficult to access the coronary sinus. Once it was accessed, a | | | coronary sinus venogram was performed using 10 mL of contrast. Total | | | contrast given during the case was 27 mL. Unfortunately, poor | | | targets were seen in the coronary sinus. There was a spindly distal | | | target that was not big enough to accommodate a lead. Also, more | | | towards the distal part of the coronary sinus was a corkscrew type | | | small to moderate sized vessel that we attempted to access and | | | actually got a wire down into the vessel significantly far | | | down. We thought this would be a good vessel to use, but | | | unfortunately the [employer] lead would not negotiate through | | | the corkscrew. A Quad, model 4671, serial number [id number] lead was | | | used. We tried and tried without success. The middle cardiac | | | vein looked like a good sized vessel but it had an extremely vertical | | | takeoff downward from the coronary sinus that made access almost | | | impossible. We tried the [employer] subselector and a | | | [place] selector through that without success. A 0.014 guidewire | | | was utilized to try to access the vertical downward takeoff with a | | | Vert catheter without success. On one occasion, the 0.014 | | | guidewire was found to be in the pericardial space and I elected to | | | abandon further efforts. The wire was pulled back and a very | | | proximal takeoff from the coronary sinus was accessed with the [employer] | | | [employer] subselector. A guidewire was placed out as far | | | distally into that vessel as it could be placed, and over that, the | | | lead coursed towards the apex of the left | | | ventricle. Unfortunately, the lead could not even be placed as far | | | as the apex. It was clearly proximal to the apex in a suboptimal | | | place for pacing but it was the only possible endocardial target that | | | would accommodate a lead in this patient. In the final location, | | | the pacing threshold was 1.8 V at 0.6 ms with an impedance of 964 | | | ohms and a current of 1.9 mA. R-waves were 10.5 mV. The lead | | | was anchored into position and the device was programmed into the LV | | | ring 2 to LV ring 4 configuration, which offered one of the best | | | pacing configurations. The RV pacing threshold was 0.5 V at 0.6 ms | | | with an impedance of 485 ohms, high voltage lead impedance of 47 | | | ohms, and the current was 1.1 mA with R-waves of 11.2 mV. A | | | 6-Kazakh introducer was placed into the subclavian vein, and through | | | that, a [employer], model 7740, serial number [id number] lead was | | | placed into the high anterior aspect of the right atrium and the lead | | | was used to map for good pacing and sensing locations. In the | | | final location, the pacing threshold was 0.4 V at 0.6 ms with an | | | impedance of 603 ohms and a current of 0.7 mA. P-waves were 4.0 | | | mV. The lead was anchored into position with two #1 Ethibond | | | sutures. There was no diaphragmatic pacing at 10 V. All leads | | | were attached to a [employer] Dynagen VERIFYING MACHINE OPERATOR defibrillator (model | | | G158, serial number [id number]). That device was placed into the left | | | prepectoral region into the previously placed pacemaker pocket and | | | anchored with a #1 Ethibond suture. I elected not to induce | | | ventricular fibrillation because this patient as quite ill and not | | | well sedated. The device was anchored with a #1 Ethibond | | | suture. The pocket was closed with 4 layers, using 2-0 Vicryl for | | | the deep 2 layers, 3-0 Vicryl for the next layer, and 4-0 Monocryl | | | for the superficial layer. A sterile dressing was applied. | | | ESTIMATED BLOOD LOSS: 25 mL or less. TOTAL CONTRAST | | | GIVEN: 27 mL. The pocket was closed with sutures as outlined | | | above and then dressed with Dermabond-like substance. FINAL | | | SETTINGS FOR DEVICE: Mode for pacing: DDDR with a lower rate of | | | 60 and an upper rate of 120 beats per minute. The paced AV delay | | | will be 150 ms, and sensed AV delay 120 ms. The postventricular | | | atrial refractory period will be 240 to 280 ms. The output from | | | the LV and RV will be 5 V at 0.6 ms with a sensitivity of 1 mV in the | | | LV and 0.6 mV in the RV. The output in the atrium will be 3.5 V | | | at 0.6 ms with a sensitivity of 0.5 mV. Pacing and sensing will be | | | bipolar. The lower rate limit will be 60 beats per minute and | | | pacing mode will be DDDR with an upper rate limit of 120 beats per | | | minute. A single zone has been programmed for ventricular | | | fibrillation with a detection rate of 180 beats per | | | minute. Therapy will be quick convert followed by 31 joule first | | | shock and all subsequent shocks will be 41 joules. A VT therapy | | | zone from 150 to 180 beats per minute will be programmed. The | | | first therapy will be 2 different attempts at antitachycardia pacing | | | (first at 91 percent and the second at 85 percent) followed by 31 | | | joule first shock and all subsequent shocks will be 41 joules. | | + + + + + | Procedure Note | + + | Efren Perry In - 03/11/2018 5:15 PM PDT | | | | | | PROCEDURE: VERIFYING MACHINE OPERATOR defibrillator implant. | | | | DATE: 03/09/2018. | | | | HISTORY: This 88-year-old gentleman was referred urgently by Dr. Iqbal in | | the emergency room at [facility] because of symptomatic | | complete heart block associated with relative hypotension and a heart rate | | in the 40 beats per minute range. He presented today with diaphoresis and | | some lightheadedness and felt poorly. He was therefore transferred to | | [facility] for a VERIFYING MACHINE OPERATOR pacemaker. He has a baseline left | | bundle branch block and severe LV systolic dysfunction with an ejection | | fraction of 25-30 percent in the context of moderate MR and TR and moderate | | to severe pulmonary hypertension. He has an ischemic cardiomyopathy and | | has had 4 prior stents. A VERIFYING MACHINE OPERATOR device was planned for next week in | | [place], [place], but because of his symptomatic complete heart block, | | it was recommended that he get this device placed locally. | | | | PROCEDURE NOTE: The patient was brought to the electrophysiology | | laboratory in postabsorptive nonsedated state. Dr. Reeves was present from | | anesthesia for the entire case, and his presence was very helpful. He | | sedated the patient minimally at my request because of his unstable | | clinical situation. A total of 100 mcg intravenous fentanyl were given | | throughout the case. The chest was prepped and draped in the usual sterile | | fashion and locally anesthetized with 1 percent xylocaine. The left | | subclavian vein was accessed 3 times with an 18-gauge needle and 3 | | guidewires were placed into the vessel. A 9-Kazakh introducer was placed | | into the subclavian vein, and through that, a [employer], model | | 0292, serial number [id number] lead was placed into the right ventricle and | | screwed into position towards the apex. This was a single-coil lead. The | | lead was anchored with two #1 Ethibond sutures. There was no diaphragmatic | | pacing at 10 V. | | | | A 9-Kazakh Yg sheath was placed into the subclavian vein and down into | | the right atrium. A [place] introducer was used to access the coronary | | sinus after a moderate amount of difficulty. This had a fairly vertical | | takeoff and it was difficult to access the coronary sinus. Once it was | | accessed, a coronary sinus venogram was performed using 10 mL of contrast. | | Total contrast given during the case was 27 mL. Unfortunately, poor | | targets were seen in the coronary sinus. There was a spindly distal target | | that was not big enough to accommodate a lead. Also, more towards the | | distal part of the coronary sinus was a corkscrew type small to moderate | | sized vessel that we attempted to access and actually got a wire down into | | the vessel significantly far down. We thought this would be a good vessel | | to use, but unfortunately the [employer] lead would not negotiate | | through the corkscrew. A Quad, model 4671, serial number [id number] lead was | | used. We tried and tried without success. The middle cardiac vein looked | | like a good sized vessel but it had an extremely vertical takeoff downward | | from the coronary sinus that made access almost impossible. We tried the | | [employer] subselector and a [place] selector through that without | | success. A 0.014 guidewire was utilized to try to access the vertical | | downward takeoff with a Vert catheter without success. On one occasion, | | the 0.014 guidewire was found to be in the pericardial space and I elected | | to abandon further efforts. The wire was pulled back and a very proximal | | takeoff from the coronary sinus was accessed with the [employer] | | subselector. A guidewire was placed out as far distally into that vessel | | as it could be placed, and over that, the lead coursed towards the apex of | | the left ventricle. Unfortunately, the lead could not even be placed as | | far as the apex. It was clearly proximal to the apex in a suboptimal place | | for pacing but it was the only possible endocardial target that would | | accommodate a lead in this patient. | | | | In the final location, the pacing threshold was 1.8 V at 0.6 ms with an | | impedance of 964 ohms and a current of 1.9 mA. R-waves were 10.5 mV. The | | lead was anchored into position and the device was programmed into the LV | | ring 2 to LV ring 4 configuration, which offered one of the best pacing | | configurations. The RV pacing threshold was 0.5 V at 0.6 ms with an | | impedance of 485 ohms, high voltage lead impedance of 47 ohms, and the | | current was 1.1 mA with R-waves of 11.2 mV. | | | | A 6-Kazakh introducer was placed into the subclavian vein, and through | | that, a [employer], model 7740, serial number [id number] lead was placed | | into the high anterior aspect of the right atrium and the lead was used to | | map for good pacing and sensing locations. In the final location, the | | pacing threshold was 0.4 V at 0.6 ms with an impedance of 603 ohms and a | | current of 0.7 mA. P-waves were 4.0 mV. The lead was anchored into | | position with two #1 Ethibond sutures. There was no diaphragmatic pacing | | at 10 V. All leads were attached to a [employer] Dynagen VERIFYING MACHINE OPERATOR | | defibrillator (model G158, serial number [id number]). That device was placed | | into the left prepectoral region into the previously placed pacemaker | | pocket and anchored with a #1 Ethibond suture. I elected not to induce | | ventricular fibrillation because this patient as quite ill and not well | | sedated. | | | | The device was anchored with a #1 Ethibond suture. The pocket was closed | | with 4 layers, using 2-0 Vicryl for the deep 2 layers, 3-0 Vicryl for the | | next layer, and 4-0 Monocryl for the superficial layer. A sterile dressing | | was applied. | | | | ESTIMATED BLOOD LOSS: 25 mL or less. | | | | TOTAL CONTRAST GIVEN: 27 mL. | | | | The pocket was closed with sutures as outlined above and then dressed with | | Dermabond-like substance. | | | | FINAL SETTINGS FOR DEVICE: Mode for pacing: DDDR with a lower rate of 60 | | and an upper rate of 120 beats per minute. The paced AV delay will be 150 | | ms, and sensed AV delay 120 ms. The postventricular atrial refractory | | period will be 240 to 280 ms. The output from the LV and RV will be 5 V at | | 0.6 ms with a sensitivity of 1 mV in the LV and 0.6 mV in the RV. The | | output in the atrium will be 3.5 V at 0.6 ms with a sensitivity of 0.5 mV. | | Pacing and sensing will be bipolar. The lower rate limit will be 60 beats | | per minute and pacing mode will be DDDR with an upper rate limit of 120 | | beats per minute. | | | | A single zone has been programmed for ventricular fibrillation with a | | detection rate of 180 beats per minute. Therapy will be quick convert | | followed by 31 joule first shock and all subsequent shocks will be 41 | | joules. A VT therapy zone from 150 to 180 beats per minute will be | | programmed. The first therapy will be 2 different attempts at | | antitachycardia pacing (first at 91 percent and the second at 85 percent) | | followed by 31 joule first shock and all subsequent shocks will be 41 | | joules. | | | | IMPRESSION: | | FINAL IMPRESSION: | | 1. Good pacing and sensing thresholds. | | 2. Suboptimal left ventricular lead position, but there were no other | | alternative places available to place this lead other than an epicardial | | placement. I have recommended trying this new position and seeing how | | he does clinically. If he does not do well or if the LV systolic | | function continues to deteriorate, consideration will need to be given | | for an epicardial lead. Unfortunately, he has severe COPD and severe | | LV systolic dysfunction, so that would be a potentially risky procedure | | in this gentleman. | | 3. The anticoagulation will be resumed tomorrow (apixaban is his request). | | | | 4. Followup: 1 week (sooner if need be). | | | | Read by OSWALDO SAMUELS MD 03/09/2018 10:57 P | | | | | + + + + + + + | Performing | Address | City/State/[facility] | Phone Number | | Organization | | | | + + + + + | [facility] | [address] | [place] [address] | | + + + + + MRSA by PCR (03/09/2018 7:26 PM) + + + + + | Component | Value | Ref Range | Performed At | + + + + + | SOURCE | NARES(NOSE) | | [facility] | + + + + + | MRSA PCR | NEGATIVEComment: Testing | NEGATIVE | [facility] | | | performed at [facility];[address];[place] | | | | | [address] | | | + + + + + + + | Specimen | + + | Nasopharyngeal - | | Nares(Nose) | + + + + + + + | Performing | Address | City/State/Zipcode | Phone Number | | Organization | | | | + + + + + | [facility] | [address] | [facility] [place] [address] | | + + + + + X-ray Chest 1 View (03/09/2018 6:13 PM) + + + | Narrative | Performed At | + + + | This is a non-reportable procedure without a radiologist report and | [facility] | | is used for image storage only | RADIOLOGY | + + + + + + + + | Performing | Address | City/State/Zipcode | Phone Number | | Organization | | | | + + + + + | [facility] | [address] | [place] [address] | | + + + + + in this encounter Visit Diagnoses + + | Diagnosis | + + | AV block, 3rd degree (HCC) - Primary | + + | Atrioventricular block, complete | + + | Near syncope | + + | Syncope and collapse | + + | Paroxysmal atrial fibrillation (HCC) | + + | Atrial fibrillation | + + | Pulmonary emphysema (HCC) | + + | Other emphysema | + + | History of spinal fusion | + + | Arthrodesis status | + + | History of gout | + + | Personal history of other endocrine, metabolic, and immunity disorders | + + Admitting Diagnoses + + | Diagnosis | + + | Paroxysmal atrial fibrillation (HCC) | + + | Atrial fibrillation | + + | AV block, 3rd degree (HCC) | + + | Atrioventricular block, complete | + + | Near syncope | + + | Syncope and collapse | + + Administered Medications + +--------+ +--------+------+------+ | Medication Order | MAR | Action | Dose | Rate | Site | | | Action | Date | | | | + +--------+ +--------+------+------+ | acetaminophen (TYLENOL) tablet | Given | | 650 mg | | | | 650 mg 650 mg, Oral, Every 4 | | 8 23:21 | | | | | Hours While Awake, First dose on | | PDT | | | | | 03/09/18 at 2200 | | | | | | + +--------+ +--------+------+------+ +-------+ +--------+---+---+ | Given | | 650 mg | | | | | 8 07:05 | | | | | | PDT | | | | +-------+ +--------+---+---+ +---+---+ | | | +---+---+ + +-------+ +--------+---+---+ | allopurinol (ZYLOPRIM) tablet | Given | | 300 mg | | | | 300 mg 300 mg, Oral, Every | | 8 08:37 | | | | | Morning, First dose on Wed | | PDT | | | | | 03/10/18 at 0900 | | | | | | + +-------+ +--------+---+---+ +---+---+ | | | +---+---+ + +-------+ + +---+---+ | ascorbic acid (VITAMIN C) | Given | | 1,000 mg | | | | tablet 1,000 mg 1,000 mg, Oral, | | 8 08:37 | | | | | Daily, First dose on Wed03/10/18 | | PDT | | | | | at 0900 | | | | | | + +-------+ + +---+---+ +---+---+ | | | +---+---+ + +-------+ +-------+---+---+ | atorvastatin (LIPITOR) tablet | Given | | 20 mg | | | | 20 mg 20 mg, Oral, Nightly, | | 8 23:22 | | | | | First dose on Wed03/09/18 at 2200 | | PDT | | | | + +-------+ +-------+---+---+ +---+---+ | | | +---+---+ + +-------+ +--------+---+---+ | fentaNYL (SUBLIMAZE) injection | Given | | 25 mcg | | | | 25 mcg 25 mcg, Intravenous, | | 8 01:58 | | | | | Every 4 Hours PRN, For pain 4 to | | PDT | | | | | 9, Starting Wed03/09/18 at 2142 | | | | | | + +-------+ +--------+---+---+ +---+---+ | | | +---+---+ + +-------+ +-------+---+---+ | furosemide (LASIX) tablet 40 mg | Given | | 40 mg | | | | 40 mg, Oral, Every Morning, | | 8 08:37 | | | | | First dose on Wed03/10/18 at 0900 | | PDT | | | | + +-------+ +-------+---+---+ +---+---+ | | | +---+---+ + +-------+ +--------+---+---+ | gabapentin (NEURONTIN) capsule | Given | | 300 mg | | | | 300 mg 300 mg, Oral, Nightly, | | 8 23:21 | | | | | First dose on Wed03/09/18 at 2200 | | PDT | | | | + +-------+ +--------+---+---+ +---+---+ | | | +---+---+ + + + +--------+---+---+ | lidocaine 1 % injection 80 mL | Given by | | 80 mLs | | | | 80 mL, Intradermal, STAT - Now, | Other | 8 19:36 | | | | | Wed03/09/18 at 1858, For 1 dose, | | PDT | | | | | Pre-op | | | | | | + + + +--------+---+---+ +---+---+ | | | +---+---+ + +-------+ +--------+---+---+ | magnesium oxide (MAG-OX) tablet | Given | | 400 mg | | | | 400 mg 400 mg, Oral, Daily, | | 8 08:37 | | | | | First dose on Wed03/09/18 at 2200 | | PDT | | | | + +-------+ +--------+---+---+ +---+---+ | | | +---+---+ + +-------+ +-------+---+---+ | metoprolol (TOPROL-XL) 24 hr | Given | | 25 mg | | | | tablet 25 mg 25 mg, Oral, Daily | | 8 08:37 | | | | | With Breakfast, First dose on Bri | | PDT | | | | | 03/10/18 at 0800 | | | | | | + +-------+ +-------+---+---+ +---+---+ | | | +---+---+ + +-------+ +--------+---+---+ | mometasone (ASMANEX) 220 | Given | | 1 puff | | | | MCG/INH inhaler 1 puff 1 puff | | 8 08:37 | | | | | (220 mcg), Inhalation, Daily, | | PDT | | | | | First dose on [facility] 03/10/18 at 0900 | | | | | | + +-------+ +--------+---+---+ +---+---+ | | | +---+---+ + +-------+ +-----+---+---+ | mupirocin (BACTROBAN) 2 % nasal | Given | | 1 g | | | | ointment 1 g 1 g, Nasal, 2 | | 8 19:26 | | | | | Times Daily, First dose on Wed | | PDT | | | | | 03/09/18 at 2100, Apply to each | | | | | | | nares for 5 days. DC if cultures | | | | | | | negative for MRSA and staph | | | | | | | aureus. After application, press | | | | | | | nostrils together and release | | | | | | | repeatedly for 1 minute to spread | | | | | | | ointment throughout the nares. | | | | | | + +-------+ +-----+---+---+ +---+---+ | | | +---+---+ + +-------+ +-------+---+---+ | spironolactone (ALDACTONE) | Given | | 25 mg | | | | tablet 25 mg 25 mg, Oral, Daily, | | 8 08:37 | | | | | First dose on Bri 03/10/18 at | | PDT | | | | | 0900 | | | | | | + +-------+ +-------+---+---+ +---+---+ | | | +---+---+ + +-------+ +--------+---+---+ | tamsulosin (FLOMAX) capsule 0.4 | Given | | 0.4 mg | | | | mg 0.4 mg, Oral, After Dinner, | | 8 23:22 | | | | | First dose on Wed03/09/18 at 2200 | | PDT | | | | + +-------+ +--------+---+---+ +---+---+ | | | +---+---+ + + + + +---+---+ | vancomycin (VANCOCIN) 1,000 mg | Given by | | 1,000 mg | | | | in sodium chloride (PF) 0.9 % 20 | Other | 8 19:44 | | | | | mL syringe 1,000 mg, 20 mL, | | PDT | | | | | Irrigation, STAT - Now, Wed | | | | | | | 03/09/18 at 1814, For 1 dose, For | | | | | | | pocket at time of closing. | | | | | | + + + + +---+---+ +---+---+ | | | +---+---+ + +---------+ +--------+---+---+ | vancomycin (VANCOCIN) 1250 | New Bag | | 1.25 g | | | | mg/250 mL IVPB 1.25 g, | | 8 19:26 | | | | | Intravenous, Administer over 90 | | PDT | | | | | Minutes, STAT - Now, 03/09/18 | | | | | | | at 1859, For 1 dose, Start | | | | | | | infusion acid conditioning worker to EP lab | | | | | | + +---------+ +--------+---+---+ +---+---+ | | | +---+---+ in this encounter
--- OUTSIDE RECORDS SUMMARY | ~2018-03-23 | XMS | Encounter Summary ---
Demographics + + + | Address | [address] | | | [place] [address] | + + + | Home Phone | | + + + | Preferred Language | Unknown | + + + | Marital Status | | + + + | Sikh Affiliation | Unknown | + + + | Race | Unknown | + + + | Ethnic Group | Unknown | + + + Author + + + | Author | Glenda [facility] | + + + | Organization | [facility] | + + + | Address | Unknown | + + + | Phone | Unavailable | + + + Support + + +---------+ + | Name | Relationship | Address | Phone | + + +---------+ + | Bronwyn Hernández | ECON | Unknown | | + + +---------+ + Care Team Providers + +------+ + | Care Heavy Antiarmor Weapons Infantryman Name | Role | Phone | + +------+ + PCP | Unavailable | + +------+ + Reason for Visit +--------+ + | Reason | Comments | +--------+ + | Other | implant record | +--------+ + Encounter Details +--------+ + + + + | Date | Type | Department | Care Team | Description | +--------+ + + + + | 03/09/ | Documentati | [facility] | [facility] [place] | Other (implant | | 2018 | on Only | Cardiology [place] | | record ) | | | | [address] | | | | | | [place] | | | | | | [address] | | | | | | [phone] | | | +--------+ + + + [...] + + + as of this encounter Plan [...] Cardiology | Dudley Ely | | | 2017 | consult | | MD [address] | | | | | | [address] | | | | | | [place] [address] | | | | | | [phone] | | | | | | | [...] [address] | | | | | | [place] [address] | | | | | | [phone] | | | | | | | | +--------+ + + + + | 06/13/ | Documentati | Cardiology | | | | 2017 | on Only | | | | +--------+ + + + + as of this encounter Visit Diagnoses Not on filein this encounter"
--- OUTSIDE RECORDS SUMMARY | ~2018-03-23 | XMS | Encounter Summary ---
Demographics + + + | Address | [address] | | | [place] [address] | + + + | Home Phone | | + + + | Preferred Language | Unknown | + + + | Marital Status | | + + + | Adventism Affiliation | Unknown | + + + | Race | Unknown | + + + | Ethnic Group | Unknown | + + + Author + + + | Author | [facility]enda [facility] | + + + | Organization | [facility] | + + + | Address | Unknown | + + + | Phone | Unavailable | + + + Support + + +---------+ + | Name | Relationship | Address | Phone | + + +---------+ + | Bronwyn Hernández | ECON | Unknown | | + + +---------+ + Care Team Providers + +------+ + | Care Cook Cold Meat Name | Role | Phone | + +------+ + PCP | Unavailable | + +------+ + Encounter Details +--------+ + + + + | Date | Type | Department | Care Team | Description | +--------+ + + + + | 03/09/ | Orders Only | Located Within [facility] | James Baum RN | | | 2017 | | [facility] | | | | | | [place] [address] | | | | | | [place] [address] | | | | | | [phone] | | | +--------+ + + + [...] Documentati | Cardiology | | | | 2018 | on Only | | | | +--------+ + + + + | 03/23/ | Initial | Cardiology | Dudley Ely | | | 2018 | consult | | MD [address] | | | | | | [address] | | | | | | [place] [address] | | | | | | [phone] | | | | | | | | +--------+ + + + + | 04/19/ | Documentati | Cardiology | | | | 2017 | on Only | | | | +--------+ + + + + | 04/19/ | Office | Cardiology | Nicolette Ibarra | | | 2018 | Visit | | [address] | | | | | | [address] | | | | | | [place] [address] | | | | | | [phone] | | | | | | | | +--------+ + + + + | 06/13/ | Documentati | Cardiology | | | | 2018 | on Only | | | | +--------+ + + + + as of this encounter Visit Diagnoses Not on filein this encounter"
--- OUTSIDE RECORDS SUMMARY | ~2018-03-23 | XMS | Encounter Summary ---
Demographics + + + | Address | [address] | | | [place] [address] | + + + | Home Phone | | + + + | Preferred Language | Unknown | + + + | Marital Status | | + + + | Lutheran Affiliation | Unknown | + + + | Race | Unknown | + + + | Ethnic Group | Unknown | + + + Author + + + | Author | Glenda [facility] | + + + | Organization | [facility] | + + + | Address | Unknown | + + + | Phone | Unavailable | + + + Support + + +---------+ + | Name | Relationship | Address | Phone | + + +---------+ + | Bronwyn Hernández | ECON | Unknown | | + + +---------+ + Care Team Providers + +------+ + | Care Toilet And Laundry Soap Supervisor Name | Role | Phone | + [...] | | Internal | Diagnoses | | [facility] 4th | | | | Medicine | 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 | | [address] | | | | | fibrillation | | [address] | | | | | (HCC) AV | | [place], [place] | | | | | block, 3rd | | [address] Phone: | | | | | degree (HCC) | | [phone] | | | | | Near | | Fax: | | | | | syncope | | [phone] | | | | | | | | +--------+--------+ + + + + Encounter Details +--------+ + + + + | Date | Type | Department | Care Team | Description | +--------+ + + + + | 03/09/ | Hospital | [facility] | Austin Vallecillo, | AV block, 3rd degree | | 2018 - | Encounter | [facility] 4th | [address] | (HCC) (Primary Dx); | | | | [address] | [place] [address] | Near syncope; | | 03/10/ | | [address] | [phone] | Paroxysmal atrial | | 2018 | | [place] [address] | | fibrillation (HCC) | | | | [phone] | Oswaldo Samuels MD [address] | | | | | | [address] | | | | | | [place] [address] | | | | | | [phone] | | | | | | | [...] may be different from the o marbella. [facility] PATIENT NAME: Hussain Hernández : 1930: AGE: [...] Diagnoses: Same as above. Procedures In Hospital: mydala SKIN PEELING MACHINE OPERATOR defibrillator, on March 10, 2018 Hospital Course: He was transferred from [facility] via [employer] helicopter sherley use of symptomatic complete heart block with a heart rate of 40 and a blood pressure of 90. He was previously scheduled have a SKIN PEELING MACHINE OPERATOR device placed in [facility] because of the complete heart block, it was felt this should be done closer to home. He has a chronic left bundle-branch block and chronic systolic congestive heart failure with an ejection frac tion of 25%. Shortly after he arrived in the emergency room via helicopter, he was taken em ergently to the EP lab and a SKIN PEELING MACHINE OPERATOR defibrillator was placed. Ventricular fibrillation [...] 100-62.5-25 mcg/puff inhaler Refills: 0 Generic drug: vojafoseixf-nctpoocrcbcr-sywrpdeztm vitamin C 1000 MG tablet Refills: 0 [...] Your Medications These medications were sent to [facility] [id number] [place] [address] [place] - [address] AT NEC OF & COURT [address], [place] [address] losartan 25 MG tablet metoprolol 25 MG 24 hr tablet spironolactone 25 MG tablet Follow-Up: Oswaldo Samuels MD [address] [place] [address] Dr Ford [place] [id number] Schedule an appointment as soon as possible for a visit in 1 week For wound re-check WITH education paraprofessional took 30 minutes, to include final examination, [...] usage. Your appointments will be at the [facility] in [place] across from the [facility]. The address is [address] [place] [address]. The office is located on the [address] [place] [address]. This appointment should already be scheduled for [...] at home, please call the office at [phone]. in this encounter Medications at Time of [...] [address] | | | | | | [place] [address] | | | | | | [phone] | | | | | | | [...] [address] | | | | | | [place] [address] | | | | | | [phone] | | | | | | | [...] | [facility] | | | performed at [facility], [address] | | LABORATORY | | | [address], | | | | | [place] [address] | | | + + + + + + + | Specimen | + + | Blood | + + + + + + + | Performing | Address | City/State/Zipcode | Phone Number | | Organization | | | | + + + + + | [facility] | [address] | [place] [address] | [phone] | | LABORATORY | Blvd[address] | | | + + + + + Basic metabolic panel (03/10/2018 4:41 AM) + + + + + | Component | Value | Ref Range | Performed At | + + + + + | SODIUM | 142 | 135 - 145 mmol/L | [facility] | | | | | LABORATORY | [...] + | BUN/CREAT | 26 | | [facility] | | | | | LABORATORY | + + + + + | CALCIUM | 8.3 (L) | 8.5 - 10.5 mg/dL | [facility] | | | | | LABORATORY | [...] | | | | | performed at [facility], [address] | | | | | [facility], | | | | | [place] [address] | | | + + + + + + + | Specimen | + + | Blood | + + + + + + + | Performing | Address | City/State/Zipcode | Phone Number | | Organization | | | | + + + + + | [facility] | [address] [facility] | [place] [address] | [phone] | | LABORATORY | Christofer. | | [...] - 03/09/2018 11:21 PM PDT HUSSAIN FRAIRE [id number] years | | MaleXR CHEST 2 VIEW [...] | + + + + + | [facility] | [address] | [place] [address] | | + + + + + [...] At | + + + | | [facility] | | | RADIOLOGY | | PROCEDURE: SKIN PEELING MACHINE OPERATOR defibrillator implant. DATE: 03/09/2018. | | | HISTORY: This 88-year-old gentleman was referred urgently by | | | Rasheed in the emergency room at [facility] because of | | | symptomatic complete heart block associated with relative | | | hypotension and a heart rate in the 40 beats per minute range. He | | | presented today with diaphoresis and some lightheadedness and felt | | | poorly. He was therefore transferred to [facility] | | | [place] for a SKIN PEELING MACHINE OPERATOR pacemaker. He has a baseline left bundle branch | | | block and severe LV systolic dysfunction with an ejection fraction of | | | 25-30 percent in the context of moderate MR and TR and moderate to | | | severe pulmonary hypertension. He has an ischemic cardiomyopathy | | | and has had 4 prior stents. A SKIN PEELING MACHINE OPERATOR device was planned for next week | | | in [place], [place], but because of his symptomatic complete [...] into the vessel. A | | | 9-Kenyan introducer was placed into the subclavian vein, and through | | | that, a [employer], model 0292, serial number [id number] lead was | | | placed into the right ventricle and screwed into position towards the | | | apex. This was a single-coil lead. The lead was anchored with | | | two #1 Ethibond sutures. There was no diaphragmatic pacing at 10 | | | V. A 9-Kenyan Yg sheath was placed into the subclavian vein | | | and down into the right atrium. A Anthony introducer was used to | | | [...] use, but | | | unfortunately the [employer] lead would not negotiate through | | | the corkscrew. A Quad, model 4671, serial number [id number] lead was | | | used. We tried and tried without success. The middle cardiac | | | vein looked like a good sized vessel but it had an extremely vertical | | | takeoff downward from the coronary sinus that made access almost | | | impossible. We tried the [employer] subselector and a | | | Anthony selector through that without success. A 0.014 [...] the coronary sinus was accessed with the [employer] | | | Scientific subselector. A guidewire [...] of 11.2 mV. A | | | 6-Kenyan introducer was placed into the subclavian vein, and through | | | that, a [employer], model 7740, serial number [id number] lead was | | | placed into [...] | | | were attached to a [employer] Dynagen SKIN PEELING MACHINE OPERATOR defibrillator (model | | | G158, serial number [id number]). That device was placed into the left [...] | | | | | | PROCEDURE: SKIN PEELING MACHINE OPERATOR defibrillator implant. | | | | DATE: 03/09/2018. | | | | HISTORY: This 88-year-old gentleman was referred urgently by Dr. Iqbal in | | the emergency room at [facility] because of symptomatic | | complete heart block associated with relative hypotension and a heart rate | | in the 40 beats per minute range. He presented today with diaphoresis and | | some lightheadedness and felt poorly. He was therefore transferred to | | [facility] for a SKIN PEELING MACHINE OPERATOR pacemaker. He has a baseline left | | bundle branch block and severe LV systolic dysfunction with an ejection | | fraction of 25-30 percent in the context of moderate MR and TR and moderate | | to severe pulmonary hypertension. He has an ischemic cardiomyopathy and | | has had 4 prior stents. A SKIN PEELING MACHINE OPERATOR device was planned for next week in | | [place], [place], but because of his symptomatic complete [...] guidewires were placed into the vessel. A 9-Kenyan introducer was placed | | into the subclavian vein, and through that, a mydala, model | | 0292, serial number [id number] lead was placed into the right ventricle and | | screwed into position towards the apex. This was a single-coil lead. The | | lead was anchored with two #1 Ethibond sutures. There was no diaphragmatic | | pacing at 10 V. | | | | A 9-Kenyan Yg sheath was placed into the subclavian vein and down into | | the right atrium. A Anthony introducer was used to access the coronary [...] | | to use, but unfortunately the [employer] lead would not negotiate | | through the corkscrew. A Quad, model 4671, serial number [id number] lead was | | used. We tried and tried without success. The middle cardiac vein looked | | like a good sized vessel but it had an extremely vertical takeoff downward | | from the coronary sinus that made access almost impossible. We tried the | | [employer] subselector and a Anthony selector through that without | | success. [...] the coronary sinus was accessed with the [employer] | | subselector. A guidewire was [...] 11.2 mV. | | | | A 6-Kenyan introducer was placed into the subclavian vein, and through | | that, a [employer], model 7740, serial number [id number] lead was placed | | into the [...] V. All leads were attached to a [employer] Dynagen SKIN PEELING MACHINE OPERATOR | | defibrillator (model G158, serial number [id number]). That device was placed | | into [...] + + | Performing | Address | City/State[facility] | Phone Number | | Organization | | | | + + + + + | [facility] | [address] | [place] [address] | | + + + + + MRSA by PCR (03/09/2018 7:26 PM) + + + + + | Component | Value | Ref Range | Performed At | + + + + + | SOURCE | NARES(NOSE) | | [facility] | + + + + + | MRSA PCR | NEGATIVEComment: Testing | NEGATIVE | [facility] | | | performed at [facility];[address];[place] | | | | | [address] | | | + + + + + + + | Specimen | + + | Nasopharyngeal - | | Nares(Nose) | + + + + + + + | Performing | Address | City/State/Zipcode | Phone Number | | Organization | | | | + + + + + | [facility] | [address] | [place] [place] [address] | | + + + + + [...] | + + + + + | [facility] | [address] | [place] [address] | | + + + + + [...] | | | First dose on [facility] 03/10/18 at 0900 | | | [...] | | | | | | infusion psychological operations officer to EP lab | | | | | | + +---------+ +--------+---+---+ +---+---+ | | | +---+---+ in this encounter
--- OUTSIDE RECORDS SUMMARY | ~2018-03-23 | XMS | Encounter Summary ---
Demographics + + + | Address | [address] | | | [place] [address] | + + + | Home Phone | | + + + | Preferred Language | Unknown | + + + | Marital Status | | + + + | Yarsani Affiliation | Unknown | + + + | Race | Unknown | + + + | Ethnic Group | Unknown | + + + Author + + + | Author | [facility]enda [facility] | + + + | Organization | [facility] | + + + | Address | Unknown | + + + | Phone | Unavailable | + + + Support + + +---------+ + | Name | Relationship | Address | Phone | + + +---------+ + | Bronwyn Hernández | ECON | Unknown | | + + +---------+ + Care Team Providers + +------+ + | Care Software Implementation Project Manager Name | Role | Phone | + +------+ + PCP | Unavailable | + +------+ + Encounter Details +--------+ + + + + | Date | Type | Department | Care Team | Description | +--------+ + + + + | 03/15/ | Clinical | [facility] | Edmond Santos RN | Complete heart block | | 2017 | Support | [facility] [place] | | ([facility] (Primary Dx); | | | | [address] | | Dilated | | | | [place], [place] | | cardiomyopathy | | | | [address] | | ([facility]); Paroxysmal | | | | [phone] | | atrial fibrillation | | | | | | ([facility]) | +--------+ + + + + Social [...] 03/15/2018 10:30 AM PDTPatient is status post TELEPHONE ORDER CLERK ROOM SERVICE defibrillator implant on 03/09/[address] Oswaldo [...] appropriate safety measures. All questions answered. Carito Souza Plan of Treatment +--------+ + + + + | Date | Type | Specialty | Care Team | Description | +--------+ + + + + | 03/23/ | Documentati | Cardiology | | | 2017 | on Only | | | | +--------+ + + + + | 03/23/ | Initial | Cardiology | Dudley Ely | | | 2017 | consult | | MD [address] | | | | | | [address] | | | | | | [place] [address] | | | | | | [phone] | | | | | | | | +--------+ + + + + | 04/19/ | Documentati | Cardiology | | | 2017 | on Only | | | | +--------+ + + + + | 04/19/ | Office | Cardiology | Fidelina Ibarraissa | | | 2018 | Visit | | [address] | | | | | | [address] | | | | | | [place] [address] | | | | | | [phone] | | | | | | | [...] cardiomyopathy | 03/15/2019 | | | | ([facility]) Paroxysmal | | | | | atrial fibrillation | | | | | ([facility]) | | + +--------+ + + as [...]
--- OUTSIDE RECORDS SUMMARY | ~2018-03-23 | XMS | Encounter Summary ---
Demographics + + + | Address | [address] | | | [place] [address] | + + + | Home Phone | | + + + | Preferred Language | Unknown | + + + | Marital Status | | + + + | Latter Day Affiliation | Unknown | + + + | Race | Unknown | + + + | Ethnic Group | Unknown | + + + Author + + + | Author | Glenda [facility] | + + + | Organization | [facility] | + + + | Address | Unknown | + + + | Phone | Unavailable | + + + Support + + +---------+ + | Name | Relationship | Address | Phone | + + +---------+ + | Bronwyn Hernández | ECON | Unknown | | + + +---------+ + Care Team Providers + +------+ + | Care Kiss Machine Operator Name | Role | Phone [...] RN | | | 2017 | | [facility] | | | | | | [place] [address] | | | | | | [place] [address] | | | | | | [phone] | | | +--------+ + + + [...] | | | | | [place] [address] | | | | | | [phone] | | | | | | | | +--------+ + + + + | 06/13/ | Documentati | Cardiology | | | | 2017 | on Only | | | | +--------+ + + + + as of this encounter Visit Diagnoses Not on filein this encounter"
--- OUTSIDE RECORDS SUMMARY | ~2018-03-23 | XMS | Encounter Summary ---
Demographics + + + | Address | [address] | | | [place] [address] | + + + | Home Phone | | + + + | Preferred Language | Unknown | + + + | Marital Status | | + + + | Yarsanism Affiliation | Unknown | + + + | Race | Unknown | + + + | Ethnic Group | Unknown | + + + Author + + + | Author | Glenda [facility] | + + + | Organization | [facility] [employer] [facility] | + + + | Address | Unknown | + + + | Phone | Unavailable | + + + Support + + +---------+ + | Name | Relationship | Address | Phone | + + +---------+ + | Bronwyn Hernández | ECON | Unknown | | + + +---------+ + Care Team Providers + +------+ + | Care Track Repair Laborer Name | Role | Phone | + [...] | | | | | | [place] | | | | | | [address] | | | | | | [phone] | | | +--------+ + + + [...] [address] | | | | | | [place] [address] | | | | | | [phone] | | | | | | | [...] [address] | | | | | | [place] [address] | | | | | | [phone] | | | | | | | | +--------+ + + + + | 06/13/ | Documentati | Cardiology | | | | 2017 | on Only | | | | +--------+ + + + + as of this encounter Visit Diagnoses Not on filein this encounter"
--- OUTSIDE RECORDS SUMMARY | ~2018-03-23 | XMS | Encounter Summary ---
Demographics + + + | Address | [address] | | | [place] [address] | + + + | Home Phone | | + + + | Preferred Language | Unknown | + + + | Marital Status | | + + + | Pentecostalism Affiliation | Unknown | + + + | Race | Unknown | + + + | Ethnic Group | Unknown | + + + Author + + + | Author | [facility] | + + + | Organization | [facility] | + + + | Address | Unknown | + + + | Phone | Unavailable | + + + Support + + +---------+ + | Name | Relationship | Address | Phone | + + +---------+ + | Bronwyn Hernández | ECON | Unknown | | + + +---------+ + Care Team Providers + +------+ + | Care Pipe Finisher Name | Role | Phone | + +------+ + PCP | Unavailable | + +------+ + Encounter Details +--------+ + + + + | Date | Type | Department | Care Team | Description | +--------+ + + + + | 03/11/ | Telephone | [facility] | Jorge, | | | 2017 | | Cardiology [place] | [address] | | | | | [address] | | | | | | [place] | | | | | | [address] | | | | | | [phone] | | | +--------+ + + + [...] [address] | | | | | | [place] [address] | | | | | | [phone] | | | | | | | | +--------+ + + + + | 06/13/ | Documentati | Cardiology | | | | 2017 | on Only | | | | +--------+ + + + + as of this encounter Visit Diagnoses Not on filein this encounter"
--- OUTSIDE RECORDS SUMMARY | ~2018-03-23 | XMS | Encounter Summary ---
Demographics + + + | Address | [address] | | | [place] [address] | + + + | Home Phone | | + + + | Preferred Language | Unknown | + + + | Marital Status | | + + + | Catholic Affiliation | Unknown | + + + | Race | Unknown | + + + | Ethnic Group | Unknown | + + + Author + + + | Author | [facility] | + + + | Organization | [facility] | + + + | Address | Unknown | + + + | Phone | Unavailable | + + + Support + + +---------+ + | Name | Relationship | Address | Phone | + + +---------+ + | Bronwyn Hernández | ECON | Unknown | | + + +---------+ + Care Team Providers + +------+ + | Care Chef Teacher Name | Role | Phone | [...] | | | | | | [place] | | | | | | [address] | | | | | | [phone] | | | +--------+ + + + [...] [address] | | | | | | [place] [address] | | | | | | [phone] | | | | | | | | +--------+ + + + + | 06/13/ | Documentati | Cardiology | | | | 2017 | on Only | | | | +--------+ + + + + as of this encounter Visit Diagnoses Not on filein this encounter"
--- OUTSIDE RECORDS SUMMARY | ~2018-03-23 | XMS | Encounter Summary ---
Demographics + + + | Address | [address] | | | [place] [address] | + + + | Home Phone | | + + + | Preferred Language | Unknown | + + + | Marital Status | | + + + | Zoroastrianism Affiliation | Unknown | + + + | Race | Unknown | + + + | Ethnic Group | Unknown | + + + Author + + + | Author | [facility] | + + + | Organization | [facility] | + + + | Address | Unknown | + + + | Phone | Unavailable | + + + Support + + +---------+ + | Name | Relationship | Address | Phone | + + +---------+ + | Bronwyn Hernández | ECON | Unknown | | + + +---------+ + Care Team Providers + +------+ + | Care Clinical Phlebotomist Name | Role | Phone | + +------+ + PCP | Unavailable | + +------+ + Reason for Visit Auth/Cert +--------+--------+ + + + + | Status | Reason | Specialty | Diagnoses / | Referred By | Referred To | | | | | Procedures | Contact | Contact | +--------+--------+ + + + + | | | Internal | Diagnoses | | [facility] | | | | Medicine | 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 | | [address] | | | | | fibrillation | | [address] | | | | | ([facility]) AV | | [place], [place] | | | | | block, [facility] | | [address] Phone: | | | | | degree ([facility]) | | [phone] | | | | | Near | | Fax: | | | | | syncope | | [phone] | | | | | | | | +--------+--------+ + + + + Encounter Details +--------+ + + + + | Date | Type | Department | Care Team | Description | +--------+ + + + + | 03/09/ | Anesthesia | [facility] | Sebastián Reeves MD | | | 2018 | Event | [facility] | [address] | | | | | Lab [address] | [place] [address] | | | | | [place] [address] | [phone] | | | | | [phone] | | | +--------+ + + + + Anesthesia Record + + + + + | Procedure Name | Responsible | Anesthesia Start | Anesthesia Stop Time | | | Anesthesiologist | Time | | + + + + + | EP BIV ICD INSERTION | Sebastián Reeves MD | 03/09/181916 | 03/09/182112 | | GENERATOR AND LEADS | | | | + + + + + +----+---+ + + | Da | T | Event | Comment | | te | i | | | | | m | | | | | e | | | +----+---+ + + | 09 | 1 | An Start | Pre-anesthetic vital signs reassessed. | | /1 | 9 | | | | 2/ | 1 | | | | 20 | 7 | | | | 18 | | | | +----+---+ + + | | 1 | Quick Note | Emergent 3rd degree block for pacer. | | | 9 | | | | | 1 | | | | | 7 | | | +----+---+ + + | | 1 | No Abx | | | | 9 | | | | | 3 | | | | | 2 | | | +----+---+ + + | | 1 | an joesph now | Now pacing at 70. | | | 9 | | | | | 4 | | | | | 9 | | | +----+---+ + + | | 2 | an joesph now | Patient thirsty. Tech says possible pericardial wire. Decreased | | | 0 | | BP cycle time to Q3.. | | | 2 | | | | | 4 | | | +----+---+ + + | | 2 | an joesph now | Getting uncomfortable. | | | 0 | | | | | 2 | | | | | 7 | | | +----+---+ + + | | 2 | Quick Note | Patient stable. Procedure complete. Has bed on 4th floor, will be | | | 1 | | recovered down here. | | | 1 | | | | | 1 | | | +----+---+ + + | | 2 | an stop | | | | 1 | data | | | | 1 | | | | | 2 | | | +----+---+ + + | | 2 | An Stop | | | | 1 | | | | | 1 | | | | | 3 | | | +----+---+ + + +------+ | Meds | +------+ + +---------+ | Name | Total | + +---------+ | fentanyl 50 mcg/mL | 100 mcg | + +---------+ | vancomycin (VANCOCIN) IV | 1 g | + +---------+ | NS | 300 mL | + +---------+ +------+ | Name | +------+ | O2 | +------+ | N2O | +------+ + + | No blood administrations on file. | + + + + | No LDAs on file. | + + in this encounter Social History + +-------+ +--------+ + | [...] [address] | | | | | | [place] [address] | | | | | | [phone] | | | | | | | | +--------+ + + + + | 06/13/ | Documentati | Cardiology | | | | 2017 | on Only | | | | +--------+ + + + + as of this encounter Visit Diagnoses Not on filein this encounter Administered Medications + +--------+ +--------+------+------+ | Medication Order | MAR | Action | Dose | Rate | Site | | | Action | Date | | | | + +--------+ +--------+------+------+ | fentaNYL (SUBLIMAZE) injection | Given | | 50 mcg | | | | Intravenous, PRN, Starting Wed | | 8 20:29 | | | | | 03/09/18 at 2028, Anesthesia | | PDT | | | | | Intra-op | | | | | | + +--------+ +--------+------+------+ +-------+ +--------+---+---+ | Given | | 50 mcg | | | | | 8 20:53 | | | | | | PDT | | | | +-------+ +--------+---+---+ +---+---+ | | | +---+---+ + +---------+ +---+---+---+ | sodium chloride 0.9 % infusion | New Bag | | | | | | Continuous PRN, Starting Wed | | 8 19:17 | | | | | 03/09/18 at 1917, Anesthesia | | PDT | | | | | Intra-op | | | | | | + +---------+ +---+---+---+ +---+---+ | | | +---+---+ + +-------+ +-----+---+---+ | vancomycin (VANCOCIN) IV 1 | Given | | 1 g | | | | g/250 mL PRN, Starting Wed | | 8 19:17 | | | | | 03/09/18 at 1917, Anesthesia | | PDT | | | | | Intra-op | | | | | | + +-------+ +-----+---+---+ +---+---+ | | | +---+---+ in this encounter"
--- OUTSIDE RECORDS SUMMARY | ~2018-03-23 | XMS | Encounter Summary ---
Demographics + + + | Address | [address] | | | [place] [address] | + + + | Home Phone | | + + + | Preferred Language | Unknown | + + + | Marital Status | | + + + | Orthodox Affiliation | Unknown | + + + | Race | Unknown | + + + | Ethnic Group | Unknown | + + + Author + + + | Author | 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 | | [address] | | | | | fibrillation | | [address] | | | | | (HCC) AV | | [place], [place] | | | | | block, 3rd | | [address] Phone: | | | | | degree (HCC) | | [phone] | | | | | Near | | Fax: | | | | | syncope | | [phone] | | | | | | | | +--------+--------+ + + + + Encounter Details +--------+ + + + + | Date | Type | Department | Care Team | Description | +--------+ + + + + | 03/09/ | Hospital | [facility] | Austin Vallecillo, | AV block, 3rd degree | | 2018 - | Encounter | [facility] | [address] | (HCC) (Primary Dx); | | | | [address] | [place] [address] | Near syncope; | | 03/10/ | | [address] | [phone] | Paroxysmal atrial | | 2018 | | [place] [address] | | fibrillation (HCC) | | | | [phone] | Oswaldo Samuels MD [address] | | | | | | [address] | | | | | | [place] [address] | | | | | | [phone] | | | | | | | [...] may be different from the o marbella. [facility] PATIENT NAME: Hussain Hernández : 1930: [...] Diagnoses: Same as above. Procedures In Hospital: [employer] METAL SHEET ROLLER OPERATOR defibrillator, on March 10, 2018 Hospital Course: He was transferred from [facility] via [employer] helicopter sherley use of symptomatic complete heart block with a heart rate of 40 and a blood pressure of 90. He was previously scheduled have a METAL SHEET ROLLER OPERATOR device placed in [facility] because of the complete heart block, it was felt this should be done closer to home. He has a chronic left bundle-branch block and chronic systolic congestive heart failure with an ejection frac tion of 25%. Shortly after he arrived in the emergency room via helicopter, he was taken em ergently to the EP lab and a METAL SHEET ROLLER OPERATOR defibrillator was placed. Ventricular fibrillation was [...] 100-62.5-25 mcg/puff inhaler Refills: 0 Generic drug: wuyrltmttqq-mrwpckcohuzx-ymyhqbrsel vitamin C 1000 MG tablet Refills: 0 [...] Your Medications These medications were sent to [facility] [id number] [place] [address] [place] - [address] AT NEC OF & [address], [place] [address] losartan 25 MG tablet metoprolol 25 MG 24 hr tablet spironolactone 25 MG tablet Follow-Up: Oswaldo Samuels MD [address] [place] [address] [address] [place] [id number] Schedule an appointment as soon as possible for a visit in 1 week For wound re-check WITH centralized traffic control operator took 30 minutes, to include final examination, [...] usage. Your appointments will be at the [facility] in [place] across from the [facility]. The address is [address] [place] [address]. The office is located on the [address] [place] [address]. This appointment should already be scheduled for you, but if not, please call [phone] to schedule your appointment. [facility] [...] at home, please call the office at [phone]. in this encounter Medications at Time of [...] [address] | | | | | | [place] [address] | | | | | | [phone] | | | | | | | [...] | | | | | [place] [address] | | | + + + + + + + | Specimen | + + | Blood | + + + + + + + | Performing | Address | City/State/Zipcode | Phone Number | | Organization | | | | + + + + + | [facility] | [address] | [place] [address] | [phone] | | LABORATORY | Blvd. | | [...] the | | | | | [facility] traceable | | | | | equation.Testing | | | | | performed at [facility], [address] | | | | | [facility], | | | | | [place] [address] | | | + + + + + + + | Specimen | + + | Blood | + + + + + + + | Performing | Address | City/State/Zipcode | Phone Number | | Organization | | | | + + + + + | [facility] | [address] | [place] [address] | [phone] | | LABORATORY | Blvd. | | [...] + | Efren Perry Results In - 03/09/2018 11:21 PM PDT HUSSAIN FRAIRE [id number] years | | MaleXR CHEST 2 VIEW [...] [facility] | [address] | [place] [address] | | + + + + + [...] | 03/09/2018 10:57 P Electronically signed by Oswlado Samuels MD on | | | 03/11/2018 5:09 PM | | + + + + + + | Narrative | Performed At | + + + | | [facility] | | | [facility] | | PROCEDURE: METAL SHEET ROLLER OPERATOR defibrillator implant. DATE: 03/09/2018. | | | HISTORY: This 88-year-old gentleman was referred urgently by | | | Rasheed in the emergency room at [facility] because of | | | symptomatic complete heart block associated with relative | | | hypotension and a heart rate in the 40 beats per minute range. He | | | presented today with diaphoresis and some lightheadedness and felt | | | poorly. He was therefore transferred to [facility] | | | [place] for a METAL SHEET ROLLER OPERATOR pacemaker. He has a baseline left bundle branch | | | block and severe LV systolic dysfunction with an ejection fraction of | | | 25-30 percent in the context of moderate MR and TR and moderate to | | | severe pulmonary hypertension. He has an ischemic cardiomyopathy | | | and has had 4 prior stents. A METAL SHEET ROLLER OPERATOR device was planned for next week | | | in [place], [place], but because of his symptomatic complete [...] into the vessel. A | | | 9-Indian introducer was placed into the subclavian vein, and through | | | that, a [employer], model 0292, serial number [id number] lead was | | | placed into the right ventricle and screwed into position towards the | | | apex. This was a single-coil lead. The lead was anchored with | | | two #1 Ethibond sutures. There was no diaphragmatic pacing at 10 | | | V. A 9-Indian Yg sheath was placed into the subclavian vein | | | and down into the right atrium. A [place] introducer was used to | | | [...] use, but | | | unfortunately the [employer] lead would not negotiate through | | | the corkscrew. A Quad, model 4671, serial number [id number] lead was | | | used. We tried and tried without success. The middle cardiac | | | vein looked like a good sized vessel but it had an extremely vertical | | | takeoff downward from the coronary sinus that made access almost | | | impossible. We tried the [employer] subselector and a | | | Yg selector through that without success. A 0.014 [...] the coronary sinus was accessed with the [employer] | | | Scientific subselector. A guidewire [...] of 11.2 mV. A | | | 6-Indian introducer was placed into the subclavian vein, and through | | | that, a [employer], model 7740, serial number [id number] lead was | | | placed into [...] | | | were attached to a [employer] Dynagen METAL SHEET ROLLER OPERATOR defibrillator (model | | | G158, serial number [id number]). That device was placed into the left [...] | Procedure Note | + + | Efrne Perry Results In - 03/11/2018 5:15 PM PDT | | | | | | PROCEDURE: METAL SHEET ROLLER OPERATOR defibrillator implant. | | | | DATE: 03/09/2018. | | | | HISTORY: This 88-year-old gentleman was referred urgently by Dr. Iqbal in | | the emergency room at [facility] because of symptomatic | | complete heart block associated with relative hypotension and a heart rate | | in the 40 beats per minute range. He presented today with diaphoresis and | | some lightheadedness and felt poorly. He was therefore transferred to | | [facility] for a METAL SHEET ROLLER OPERATOR pacemaker. He has a baseline left | | bundle branch block and severe LV systolic dysfunction with an ejection | | fraction of 25-30 percent in the context of moderate MR and TR and moderate | | to severe pulmonary hypertension. He has an ischemic cardiomyopathy and | | has had 4 prior stents. A METAL SHEET ROLLER OPERATOR device was planned for next week in | | [place], [place], but because of his symptomatic complete [...] guidewires were placed into the vessel. A 9-Indian introducer was placed | | into the subclavian vein, and through that, a [employer], model | | 0292, serial number [id number] lead was placed into the right ventricle and | | screwed into position towards the apex. This was a single-coil lead. The | | lead was anchored with two #1 Ethibond sutures. There was no diaphragmatic | | pacing at 10 V. | | | | A 9-Indian [place] sheath was placed into the subclavian vein and down into | | the right atrium. A [place] introducer was used to access the coronary [...] | | to use, but unfortunately the [employer] lead would not negotiate | | through the corkscrew. A Quad, model 4671, serial number [id number] lead was | | used. We tried and tried without success. The middle cardiac vein looked | | like a good sized vessel but it had an extremely vertical takeoff downward | | from the coronary sinus that made access almost impossible. We tried the | | [employer] subselector and a [place] selector through that without | | success. [...] the coronary sinus was accessed with the [employer] | | subselector. A guidewire was [...] 11.2 mV. | | | | A 6-Indian introducer was placed into the subclavian vein, and through | | that, a [employer], model 7740, serial number [id number] lead was placed | | into the [...] V. All leads were attached to a [employer] Dynagen METAL SHEET ROLLER OPERATOR | | defibrillator (model G158, serial number [id number]). That device was placed | | into [...] | + + + + + | [facility] | [address] | [place] [address] | | + + + + + MRSA by PCR (03/09/2018 7:26 PM) + + + + + | Component | Value | Ref Range | Performed At | + + + + + | SOURCE | NARES(NOSE) | | [facility] | + + + + + | MRSA PCR | NEGATIVEComment: Testing | NEGATIVE | [facility] | | | performed at [facility];[address] | | | | | [address];[place] | | | | | [address] | | | + + + + + + + | Specimen | + + | Nasopharyngeal - | | Nares(Nose) | + + + + + + + | Performing | Address | City/State/Zipcode | Phone Number | | Organization | | | | + + + + + | [facility] | [address] | [place] [address] | | + + + + + X-ray Chest 1 View (03/09/2018 6:13 PM) + + + | Narrative | Performed At | + + + | This is a non-reportable procedure without a radiologist report and | [facility] | | is used for image storage only | RADIOLOGY | + + + + + + + + | Performing | Address | City/State/Zipcode | Phone Number | | Organization | | | | + + + + + | [facility] | [address] | [place] [address] | | + + + + + [...] | | | Daily, First dose on [facility] 03/10/18 | | PDT | | | [...] | First dose on Bri 03/10/18 at 0900 | | PDT | [...] | First dose on Bri 03/10/18 at 0900 | | | | [...] | | | | | | infusion fire prevention inspector to EP lab | | | | | | + +---------+ +--------+---+---+ +---+---+ | | | +---+---+ in this encounter
--- OUTSIDE RECORDS SUMMARY | ~2018-03-23 | XMS | Encounter Summary ---
Demographics + + + | Address | [address] | | | [place] [address] | + + + | Home Phone | | + + + | Preferred Language | Unknown | + + + | Marital Status | | + + + | Sabianist Affiliation | Unknown | + + + | Race | Unknown | + + + | Ethnic Group | Unknown | + + + Author + + + | Author | [facility] | + + + | Organization | [facility] | + + + | Address | Unknown | + + + | Phone | Unavailable | + + + Support + + +---------+ + | Name | Relationship | Address | Phone | + + +---------+ + | Bronwyn Hernández | ECON | Unknown | | + + +---------+ + Care Team Providers + +------+ + | Care Compounder Name | Role | Phone | + +------+ + PCP | Unavailable | + +------+ + Encounter Details +--------+ + + + + | Date | Type | Department | Care Team | Description | +--------+ + + + + | 03/09/ | Procedure | [facility] | | | | 2018 | Pass [address] | | | | | | [facility] | | | | | | [address] [facility] | | | | | | [place] [address] | | | | | | [phone] | | | +--------+ + + + [...] | 2017 | consult | | MD Zeny Steele | | | | | | [address] | | | | | | [place] [address] | | | | | | [phone] | | | | | | | [...] [address] | | | | | | [place] [address] | | | | | | [phone] | | | | | | | | +--------+ + + + + | 06/13/ | Documentati | Cardiology | | | | 2018 | on Only | | | | +--------+ + + + + as of this encounter Visit Diagnoses Not on filein this encounter"
--- OUTSIDE RECORDS SUMMARY | ~2018-03-23 | XMS | Clinical Summary ---
Demographics + + + | Address | [address] | | | [place] [address] | + + + | Home Phone | | + + + | Preferred Language | Unknown | + + + | Marital Status | | + + + | Confucianist Affiliation | Unknown | + + + | Race | Unknown | + + + | Ethnic Group | Unknown | + + + Author + + + | Author | [facility] | + + + | Organization | [facility] | + + + | Address | Unknown | + + + | Phone | Unavailable | + + + Support + + +---------+ + | Name | Relationship | Address | Phone | + + +---------+ + | Bronwyn Gonzalez | ECON | Unknown | | + + +---------+ + Care Team Providers + +------+ + | Care Dictaphone Technician Name | Role | Phone | + [...] with | tablet | | /20 | 420 | e | | hr tablet | [...] | previously scheduled for a pacemaker in [place] next week. He | | presented with diaphoresis and lightheadedness and complete heart | | block with a ventricular escape of 40 bpm. He was paced | | transcutaneously by paramedics and transported to the emergency | | room at [facility]. 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 | + + + + + | [...] + | 03/15/ | Clinical | | Edmond Santos RN | Complete heart block | | 2018 | Support | | | ([facility]) (Primary Dx); | | | | | | Dilated | | | | | | cardiomyopathy | | | | | | ([facility]); Paroxysmal | | | | | | atrial fibrillation | | | | | | ([facility]) | +--------+ + + + + | 03/11/ | Telephone | | Jorge | | | 2017 | | | ASHLEY Padilla | | +--------+ + + + + | 03/09/ | Hospital | | Austin Vallecillo, | AV block, 3rd degree | | 2018 - | Encounter | | Oswaldo Blake MD | ([facility]) (Primary Dx); | | | | | | Near syncope; | | 03/10/ | | | | Paroxysmal atrial | | 2017 | | | | fibrillation ([facility]) | +--------+ + + + + +---+ + | | Discharge | | | Summaries | | | - Solomon, | | | MD Oswaldo - | [...] | | | Hospital: | | | [place] | | | Scientific | | | HOG DROPPER | | | defibrillat | | | or, on | | | February | | | , | | | 2018Hospita | | | l Course: | | | He was | | | [facility] and | | | [place] | | | via | | | [...] | scheduled | | | have a HOG DROPPER | | | device | | | placed in | | | [place] | | | Jean | | | [...] | lab and a | | | HOG DROPPER | | | defibrillat | | | [...] | | Drug Store | | | [address] - | | | [place], | | | [place] - [address] AT | | | [address] | | | [address], | | | [place] | | | [place] | | | [address] | | | Phone: | | | [phone] | | | 1 | | | losartan 25 | | | MG | | | tablet | | | metoprolol | | | 25 MG 24 hr | | | tablet | | | spironolact | | | one 25 MG | | | tablet | | | Follow-Up:K | | | leeroy Samuels, | | | [id number] | | | [address] | | | [place] | | | [place] | | | [place] | | | [phone] | | | [phone] | | | [...] Due | + + + + | RAUL, PF | 03/18/2016 | | | TRIVALENT [...] + + | 03/23/ | Documentati | | | | | 2017 | on Only | | | | +--------+ + + + + | 03/23/ | Initial | | Dudley Ely | | | 2018 | consult | | MD Ced[address] | | | | | | [address] | | | | | | [place] [address] | | | | | | [phone] | | | | | | | | +--------+ + + + + | 04/19/ | Documentati | | | | | 2017 | on Only | | | | +--------+ + + + + | 04/19/ | Office | | Nicolette Ibarra | | | 2017 | Visit | | ADAN Collazo [address] | | | | | | [address] | | | | | | [place] [address] | | | | | | [phone] | | | | | | | [...] | | 02/03/ | G158 | | Linting Machine Operator-D-03/09/2018Implanted: | c | Subcla | SCIENTIFIC | | 2019 | / | | Qty: 1 on 03/09/2018 by [...] | c | | SCIENTIFIC | | 2020 | /[id number] | | Qty: 1 on 03/09/2018 by | Rhythm | | | | | 5 | | Oswaldo Samuels MD | | | | | | /[id number] | | | Manage | | | | | 7 | | | ment | | | | | | + +--------+--------+ +--------+--------+--------+ | Ingevity | Cardia | Heart | COHOES | | 03/10/ | 7740 | | Mri-03/09/2018Implanted: Qty: | c | | SCIENTIFIC | | 2018 | /[id number] | | 1 on 03/09/2018 by Solomon | Rhythm | | | | | 1 | | MD Oswaldo | | | | | | /[id number] | | | Manage | | | | | 9 | | | ment | | | | | | + +--------+--------+ +--------+--------+--------+ | Endotak Hamilton | Cardia | Heart | [place] | | 12/24/ | 0292 | | Sg-03/09/2018Implanted: Qty: 1 | c | | SCIENTIFIC | | 2019 | /[id number] | | on 03/09/2018 by Oswaldo Samuels | Rhythm | | | | | 3 | | | | | | | | /[id number] | | | Manage | | | [...] | [facility] | | | performed at [facility], [address] | | LABORATORY | | | [address], | | | | | [place] [address] | | | + + + + + + + | Specimen | + + | Blood | + + + + + + + | Performing | Address | City/State/Zipcode | Phone Number | | Organization | | | | + + + + + | [facility] | [address] | [place] [address] | [phone] | | LABORATORY | [address] | | [...] (L) | 8.5 - 10.5 mg/dL | [facility] | | | | | LABORATORY [...] | | | | | performed at [facility], [address] | | | | | [facility], | | | | | [place] [address] | | | + + + + + + + | Specimen | + + | Blood | + + + + + + + | Performing | Address | City/State/Zipcode | Phone Number | | Organization | | | | + + + + + | [facility] | [address] | [place] [address] | [phone] | | LABORATORY | Blvd. | | [...] - 03/09/2018 11:21 PM PDT HUSSAIN FRAIRE [id number] years | | MaleXR CHEST 2 VIEW [...] + + + + + | [facility] | [address] | [place] [address] | | + + + + + [...] At | + + + | | [facility] | | | RADIOLOGY | | PROCEDURE: HOG DROPPER defibrillator implant. DATE: 03/09/2018. | | | HISTORY: This 88-year-old gentleman was referred urgently by | | | Rasheed in the emergency room at [facility] because of | | | symptomatic complete heart block associated with relative | | | hypotension and a heart rate in the 40 beats per minute range. He | | | presented today with diaphoresis and some lightheadedness and felt | | | poorly. He was therefore transferred to [facility] | | | Center for a HOG DROPPER pacemaker. He has a baseline left bundle branch | | | block and severe LV systolic dysfunction with an ejection fraction of | | | 25-30 percent in the context of moderate MR and TR and moderate to | | | severe pulmonary hypertension. He has an ischemic cardiomyopathy | | | and has had 4 prior stents. A HOG DROPPER device was planned for next week | | | in [place], [place], but because of his symptomatic complete [...] into the vessel. A | | | 9-Mongolian introducer was placed into the subclavian vein, and through | | | that, a [employer], model 0292, serial number [id number] lead was | | | placed into the right ventricle and screwed into position towards the | | | apex. This was a single-coil lead. The lead was anchored with | | | two #1 Ethibond sutures. There was no diaphragmatic pacing at 10 | | | V. A 9-Mongolian Towson sheath was placed into the subclavian vein | | | and down into the right atrium. A Yg introducer was used to | | | [...] use, but | | | unfortunately the [employer] lead would not negotiate through | | | the corkscrew. A Quad, model 4671, serial number [id number] lead was | | | used. We tried and tried without success. The middle cardiac | | | vein looked like a good sized vessel but it had an extremely vertical | | | takeoff downward from the coronary sinus that made access almost | | | impossible. We tried the [employer] subselector and a | | | Towson selector through that without success. A 0.014 [...] the coronary sinus was accessed with the [employer] | | | Scientific subselector. A guidewire [...] of 11.2 mV. A | | | 6-Mongolian introducer was placed into the subclavian vein, and through | | | that, a [employer], model 7740, serial number [id number] lead was | | | placed into [...] | | | were attached to a [employer] Dynagen HOG DROPPER defibrillator (model | | | G158, serial number [id number]). That device was placed into the left [...] | | | | | | PROCEDURE: HOG DROPPER defibrillator implant. | | | | DATE: 03/09/2018. | | | | HISTORY: This 88-year-old gentleman was referred urgently by Dr. Iqbal in | | the emergency room at [facility] because of symptomatic | | complete heart block associated with relative hypotension and a heart rate | | in the 40 beats per minute range. He presented today with diaphoresis and | | some lightheadedness and felt poorly. He was therefore transferred to | | [facility] for a HOG DROPPER pacemaker. He has a baseline left | | bundle branch block and severe LV systolic dysfunction with an ejection | | fraction of 25-30 percent in the context of moderate MR and TR and moderate | | to severe pulmonary hypertension. He has an ischemic cardiomyopathy and | | has had 4 prior stents. A HOG DROPPER device was planned for next week in | | [place], [place], but because of his symptomatic complete [...] guidewires were placed into the vessel. A 9-Mongolian introducer was placed | | into the subclavian vein, and through that, a [employer], model | | 0292, serial number [id number] lead was placed into the right ventricle and | | screwed into position towards the apex. This was a single-coil lead. The | | lead was anchored with two #1 Ethibond sutures. There was no diaphragmatic | | pacing at 10 V. | | | | A 9-Mongolian Towson sheath was placed into the subclavian vein [...] | | to use, but unfortunately the [employer] lead would not negotiate | | through the corkscrew. A Quad, model 4671, serial number [id number] lead was | | used. We tried and tried without success. The middle cardiac vein looked | | like a good sized vessel but it had an extremely vertical takeoff downward | | from the coronary sinus that made access almost impossible. We tried the | | [employer] subselector and a Yg selector through [...] the coronary sinus was accessed with the [employer] | | subselector. A guidewire was [...] 11.2 mV. | | | | A 6-Mongolian introducer was placed into the subclavian vein, and through | | that, a [employer], model 7740, serial number [id number] lead was placed | | into the [...] V. All leads were attached to a [employer] Dynagen HOG DROPPER | | defibrillator (model G158, serial number [id number]). That device was placed | | into [...] | + + + + + | [facility] | [address] | [place] [address] | | + + + + + MRSA by PCR (03/09/2018 7:26 PM) + + + + + | Component | Value | Ref Range | Performed At | + + + + + | SOURCE | NARES(NOSE) | | [facility] | + + + + + | MRSA PCR | NEGATIVEComment: Testing | NEGATIVE | [facility] | | | performed at [facility];[address] | | | | [address];[place], [place] | | | | | [address] | | | + + + + + + + | Specimen | + + | Nasopharyngeal - | | Nares(Nose) | + + + + + + + | Performing | Address | City/State/Zipcode | Phone Number | | Organization | | | | + + + + + | [facility] | [address] | [place] [address] | | + + + + + X-ray Chest 1 View (03/09/2018 6:13 PM) + + + | Narrative | Performed At | + + + | This is a non-reportable procedure without a radiologist report and | [facility] | | is used for image storage only | RADIOLOGY | + + + + + + + + | Performing | Address | City/State/Zipcode | Phone Number | | Organization | | | | + + + + + | [facility] | [address] | [place] [address] | | + + + + + [...] +------+-------+ + | MEDICARE | MEDICA | [id number] | | | [address] | | | RE | | | | [place] [address] | | | IP-OP | | | | | + +--------+ +------+-------+ + | [facility] | UNITED | [id number] | | | | | | | [...] | Self | [birth year] Home: | [address] | | | al/Fam | | [phone] | [phone] [place] [address] | | | [place] | | | [phone] | | + +--------+ +--------+ + +
--- OUTSIDE RECORDS SUMMARY | ~2018-03-23 | XMS | Encounter Summary ---
Demographics + + + | Address | [address] | | | [place] [address] | + + + | Home Phone | | + + + | Preferred Language | Unknown | + + + | Marital Status | | + + + | Scientology Affiliation | Unknown | + + + | Race | Unknown | + + + | Ethnic Group | Unknown | + + + Author + + + | Author | [facility] | + + + | Organization | [facility] | + + + | Address | Unknown | + + + | Phone | Unavailable | + + + Support + + +---------+ + | Name | Relationship | Address | Phone | + + +---------+ + | Bronwyn Hernández | ECON | Unknown | | + + +---------+ + Care Team Providers + +------+ + | Care Tester Regulator Name | Role | Phone | + +------+ + PCP | Unavailable | + +------+ + Encounter Details +--------+ + + + + | Date | Type | Department | Care Team | Description | +--------+ + + + + | 03/09/ | Procedure | [facility] | | | | 2018 | Pass [address] | | | | | | [facility] | | | | | | [address] | | | | | | [place] [address] | | | | | | [phone] | | | +--------+ + + + [...] [address] | | | | | | [place] [address] | | | | | | [phone] | | | | | | | | +--------+ + + + + | 06/13/ | Documentati | Cardiology | | | | 2017 | on Only | | | | +--------+ + + + + as of this encounter Visit Diagnoses Not on filein this encounter"
--- OUTSIDE RECORDS SUMMARY | ~2018-03-23 | XMS | Encounter Summary ---
Demographics + + + | Address | [address] | | | [place] [address] | + + + | Home Phone | | + + + | Preferred Language | Unknown | + + + | Marital Status | | + + + | Mormon Affiliation | Unknown | + + + | Race | Unknown | + + + | Ethnic Group | Unknown | + + + Author + + + | Author | [facility] | + + + | Organization | [facility] | + + + | Address | Unknown | + + + | Phone | Unavailable | + + + Support + + +---------+ + | Name | Relationship | Address | Phone | + + +---------+ + | Bronwyn Hernández | ECON | Unknown | | + + +---------+ + Care Team Providers + +------+ + | Care Experimental Box Tester Name | Role | Phone | + +------+ + PCP | Unavailable | + +------+ + Encounter Details +--------+ + + + + | Date | Type | Department | Care Team | Description | +--------+ + + + + | 03/09/ | Orders Only | [facility] | James Baum RN | | | 2017 | | [facility] | | | | | | [place] [address] | | | | | | [place] [address] | | | | | | [phone] | | | +--------+ + + + [...] | | | | | [place] [address] | | | | | | [phone] | | | | | | | [...] | | | | | [place] [address] | | | | | | [phone] | | | | | | | | +--------+ + + + + | 06/13/ | Documentati | Cardiology | | | | 2018 | on Only | | | | +--------+ + + + + as of this encounter Visit Diagnoses Not on filein this encounter"
--- OUTSIDE RECORDS SUMMARY | ~2018-03-23 | XMS | Encounter Summary ---
Demographics + + + | Address | [address] | | | [place] [address] | + + + | Home Phone | | + + + | Preferred Language | Unknown | + + + | Marital Status | | + + + | Quaker Affiliation | Unknown | + + + | Race | Unknown | + + + | Ethnic Group | Unknown | + + + Author + + + | Author | [facility] | + + + | Organization | [facility] | + + + | Address | Unknown | + + + | Phone | Unavailable | + + + Support + + +---------+ + | Name | Relationship | Address | Phone | + + +---------+ + | Bronwyn Hernández | ECON | Unknown | | + + +---------+ + Care Team Providers + +------+ + | Care Assessment Rn Name | Role | Phone | + +------+ + PCP | Unavailable | + +------+ + Encounter Details +--------+ + + + + | Date | Type | Department | Care Team | Description | +--------+ + + + + | 03/15/ | Clinical | [facility] | Edmond Santos RN | Complete heart block | | 2017 | Support | Cardiology [place] | | ([facility]) (Primary Dx); | | | | [address] | | Dilated | | | | [place], [place] | | cardiomyopathy | | | | [address] | | ([facility]); Paroxysmal | | | | [phone] | | atrial fibrillation | | | | | | ([facility]) | +--------+ + + + + [...] 03/15/2018 10:30 AM PDTPatient is status post PARACHUTE ACCESSORIES ATTACHER defibrillator implant on 03/09/[address] Oswaldo [...] [address] | | | | | | [place] [address] | | | | | | [phone] | | | | | | | [...] [address] | | | | | | [place] [address] | | | | | | [phone] | | | | | | | [...] cardiomyopathy | 03/15/2019 | | | | ([facility]) Paroxysmal | | | | | atrial fibrillation | | | | | ([facility]) | | + +--------+ + + as [...]
--- OUTSIDE RECORDS SUMMARY | ~2018-03-23 | XMS | Encounter Summary ---
Demographics + + + | Address | [address] | | | [place] [address] | + + + | Home Phone | | + + + | Preferred Language | Unknown | + + + | Marital Status | | + + + | Yarsani Affiliation | Unknown | + + + | Race | Unknown | + + + | Ethnic Group | Unknown | + + + Author + + + | Author | [facility] | + + + | Organization | [facility] | + + + | Address | Unknown | + + + | Phone | Unavailable | + + + Support + + +---------+ + | Name | Relationship | Address | Phone | + + +---------+ + | Bronwyn Hernández | ECON | Unknown | | + + +---------+ + Care Team Providers + +------+ + | Care Education Technician Name | Role | Phone | + +------+ + PCP | Unavailable | + +------+ + Encounter Details +--------+ + + + + | Date | Type | Department | Care Team | Description | +--------+ + + + + | 03/15/ | Clinical | [facility] | Edmond Santos RN | Complete heart block | | 2017 | Support | Cardiology [place] | | ([facility]) (Primary Dx); | | | | [address] | | Dilated | | | | [place], [place] | | cardiomyopathy | | | | [address] | | ([facility]); Paroxysmal | | | | [phone] | | atrial fibrillation | | | | | | ([facility]) | +--------+ + + + + [...] 03/15/2018 10:30 AM PDTPatient is status post PANTOMIMIST defibrillator implant on 03/09/[address] Oswaldo [...] [address] | | | | | | [place] [address] | | | | | | [phone] | | | | | | | [...]
--- OUTSIDE RECORDS SUMMARY | ~2018-03-23 | XMS | Clinical Summary ---
Demographics + + + | Address | [address] | | | [place] [address] | + + + | Home Phone | | + + + | Preferred Language | Unknown | + + + | Marital Status | | + + + | Church Affiliation | Unknown | + + + | Race | Unknown | + + + | Ethnic Group | Unknown | + + + Author + + + | Author | [facility] | + + + | Organization | [facility] | + + + | Address | Unknown | + + + | Phone | Unavailable | + + + Support + + +---------+ + | Name | Relationship | Address | Phone | + + +---------+ + | Bronwyn Gonzalez | ECON | Unknown | | + + +---------+ + Care Team Providers + +------+ + | Care Viner Operator Name | Role | Phone | [...] | previously scheduled for a pacemaker in [place] next week. He | | presented with diaphoresis and lightheadedness and complete heart | | block with a ventricular escape of 40 bpm. He was paced | | transcutaneously by paramedics and transported to the emergency | | room at [facility]. 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 | + + + + [...] | 2018 | Support | | | [facility] (Primary Dx); | | | | | | Dilated | | | | | | cardiomyopathy | | | | | | ([facility]); Paroxysmal | | | | | | atrial fibrillation | | | | | | ([facility]) | +--------+ + + + + | 03/11/ | Telephone | | Jorge | | | 2017 | | | ASHLEY Padilla | | +--------+ + + + + | 03/09/ | Hospital | | Austin Vallecillo, | AV block, 3rd degree | | 2018 - | Encounter | | Oswaldo Blake MD | ([facility]) (Primary Dx); | | | | | | Near syncope; | | 03/10/ | | | | Paroxysmal atrial | | 2017 | | | | fibrillation ([facility]) | +--------+ + + + [...] | | | Hospital: | | | [place] | | | Scientific | | | FRONT OFFICE JAVA DEVELOPER | | | defibrillat | | | or, on | | | February | | | , | | | 2018Hospita | | | l Course: | | | He was | | | [facility] | [facility] and | | | [place] | | | via | | | [...] | scheduled | | | have a FRONT OFFICE JAVA DEVELOPER | | | device | | | placed in | | | [place] | | | Jean | | | [...] | lab and a | | | FRONT OFFICE JAVA DEVELOPER | | | defibrillat | | | [...] | | Drug Store | | | [address] - | | | [place], | | | [place] - [address] AT | | | [address] OF [address] | | | [address], | | | [place] | | | [place] | | | [address] | | | Phone: | | | [phone] | | | 1 | | | losartan 25 | | | MG | | | tablet | | | metoprolol | | | 25 MG 24 hr | | | tablet | | | spironolact | | | one 25 MG | | | tablet | | | Follow-Up:K | | | leeroy Samuels, | | | [id number] | | | [address] | | | [place] | | | [place] | | | [place] | | | [phone] | | | [phone] | | | [...] [place] | | | | | | [place] [address] | | | | | | [phone] | | | | | | | [...] [place] | | | | | | [place] [address] | | | | | | [phone] | | | | | | | [...] | | 02/03/ | G158 | | Entry Level Machine Operator-D-03/09/2018Implanted: | c | Subcla | [...] | | SCIENTIFIC | | 2020 | /[id number] | | Qty: 1 on 03/09/2018 by | Rhythm | | | | | 5 | | Oswaldo Samuels MD | | | | | | /[id number] | | | Manage | | | | | 7 | | | ment | | | | | | + +--------+--------+ +--------+--------+--------+ | Ingevity | Cardia | Heart | [place] | | 03/10/ | 7740 | | Mri-03/09/2018Implanted: Qty: | c | | SCIENTIFIC | | 2018 | /[id number] | | 1 on 03/09/2018 by Solomon | Rhythm | | | | | 1 | | MD Oswaldo | | | | | | /[id number] | | | Manage | | | | | 9 | | | ment | | | | | | + +--------+--------+ +--------+--------+--------+ | [employer] [place] | Cardia | Heart | [place] | | 12/24/ | 0292 | | Sg-03/09/2018Implanted: Qty: 1 | c | | SCIENTIFIC | | 2019 | /[id number] | | on 03/09/2018 by Oswaldo Samuels | Rhythm | | | | | 3 | | | | | | | | /[id number] | | | Manage | | | [...] | [facility] | | | performed at [facility], [address] | | LABORATORY | | | [address], | | | | | [place] [address] | | | + + + + + + + | Specimen | + + | Blood | + + + + + + + | Performing | Address | City/State/Zipcode | Phone Number | | Organization | | | | + + + + + | [facility] | [address] | [place] [address] | [phone] | | LABORATORY | [address] | | [...] (L) | 8.5 - 10.5 mg/dL | [facility] | | | | | LABORATORY | [...] | | | | | performed at [facility], [address] | | | | | [facility], | | | | | [place] [address] | | | + + + + + + + | Specimen | + + | Blood | + + + + + + + | Performing | Address | City/State/Zipcode | Phone Number | | Organization | | | | + + + + + | [facility] | [address] | [place] [address] | [phone] | | LABORATORY | Blvd. | | [...] - 03/09/2018 11:21 PM PDT HUSSAIN FRAIRE [id number] years | | MaleXR CHEST 2 VIEW [...] JONATHAN FARAH | [address] | [place] [address] | | + + + + + [...] At | + + + | | [facility] | | | RADIOLOGY | | PROCEDURE: FRONT OFFICE JAVA DEVELOPER defibrillator implant. DATE: 03/09/2018. | | | HISTORY: This 88-year-old gentleman was referred urgently by | | | Rasheed in the emergency room at [facility] because of | | | symptomatic complete heart block associated with relative | | | hypotension and a heart rate in the 40 beats per minute range. He | | | presented today with diaphoresis and some lightheadedness and felt | | | poorly. He was therefore transferred to [facility] | | | Center for a FRONT OFFICE JAVA DEVELOPER pacemaker. He has a baseline left bundle branch | | | block and severe LV systolic dysfunction with an ejection fraction of | | | 25-30 percent in the context of moderate MR and TR and moderate to | | | severe pulmonary hypertension. He has an ischemic cardiomyopathy | | | and has had 4 prior stents. A FRONT OFFICE JAVA DEVELOPER device was planned for next week | | | in [place], [place], but because of his symptomatic complete [...] into the vessel. A | | | 9-Faroese introducer was placed into the subclavian vein, and through | | | that, a [employer], model 0292, serial number [id number] lead was | | | placed into the right ventricle and screwed into position towards the | | | apex. This was a single-coil lead. The lead was anchored with | | | two #1 Ethibond sutures. There was no diaphragmatic pacing at 10 | | | V. A 9-Faroese Rutherford sheath was placed into the subclavian vein [...] use, but | | | unfortunately the [employer] lead would not negotiate through | | | the corkscrew. A Quad, model 4671, serial number [id number] lead was | | | used. We tried and tried without success. The middle cardiac | | | vein looked like a good sized vessel but it had an extremely vertical | | | takeoff downward from the coronary sinus that made access almost | | | impossible. We tried the [employer] subselector and a | | | Rutherford selector through that without success. A 0.014 [...] the coronary sinus was accessed with the [place] | | | Scientific subselector. A guidewire [...] of 11.2 mV. A | | | 6-Faroese introducer was placed into the subclavian vein, and through | | | that, a [employer], model 7740, serial number [id number] lead was | | | placed into [...] | | | were attached to a [employer] Dynagen FRONT OFFICE JAVA DEVELOPER defibrillator (model | | | G158, serial number [id number]). That device was placed into the left [...] | | | | | | PROCEDURE: FRONT OFFICE JAVA DEVELOPER defibrillator implant. | | | | DATE: 03/09/2018. | | | | HISTORY: This 88-year-old gentleman was referred urgently by Dr. Iqbal in | | the emergency room at [facility] because of symptomatic | | complete heart block associated with relative hypotension and a heart rate | | in the 40 beats per minute range. He presented today with diaphoresis and | | some lightheadedness and felt poorly. He was therefore transferred to | | [facility] for a FRONT OFFICE JAVA DEVELOPER pacemaker. He has a baseline left | | bundle branch block and severe LV systolic dysfunction with an ejection | | fraction of 25-30 percent in the context of moderate MR and TR and moderate | | to severe pulmonary hypertension. He has an ischemic cardiomyopathy and | | has had 4 prior stents. A FRONT OFFICE JAVA DEVELOPER device was planned for next week in | | [place], [place], but because of his symptomatic complete [...] guidewires were placed into the vessel. A 9-Faroese introducer was placed | | into the subclavian vein, and through that, a [employer], model | | 0292, serial number [id number] lead was placed into the right ventricle and | | screwed into position towards the apex. This was a single-coil lead. The | | lead was anchored with two #1 Ethibond sutures. There was no diaphragmatic | | pacing at 10 V. | | | | A 9-Faroese Rutherford sheath was placed into the subclavian vein [...] | | to use, but unfortunately the [employer] lead would not negotiate | | through the corkscrew. A Quad, model 4671, serial number [id number] lead was | | used. We tried and tried without success. The middle cardiac vein looked | | like a good sized vessel but it had an extremely vertical takeoff downward | | from the coronary sinus that made access almost impossible. We tried the | | [employer] subselector and a Yg selector through [...] the coronary sinus was accessed with the [employer] | | subselector. A guidewire was [...] 11.2 mV. | | | | A 6-Faroese introducer was placed into the subclavian vein, and through | | that, a [employer], model 7740, serial number [id number] lead was placed | | into the [...] V. All leads were attached to a [employer] Dynagen FRONT OFFICE JAVA DEVELOPER | | defibrillator (model G158, serial number [id number]). That device was placed | | into [...] | + + + + + | [facility] | [address] | [place] [address] | | + + + + + MRSA by PCR (03/09/2018 7:26 PM) + + + + + | Component | Value | Ref Range | Performed At | + + + + + | SOURCE | NARES(NOSE) | | [facility] | + + + + + | MRSA PCR | NEGATIVEComment: Testing | NEGATIVE | [facility] | | | performed at [facility];[address] | | | | [address];[place], [place] | | | | | [address] | | | + + + + + + + | Specimen | + + | Nasopharyngeal - | | Nares(Nose) | + + + + + + + | Performing | Address | City/State/Zipcode | Phone Number | | Organization | | | | + + + + + | [facility] | [address] | [place] [address] | | + + + + + [...] [facility] | [address] | [place] [address] | | + + + + + [...] +------+-------+ + | MEDICARE | MEDICA | [id number] | | | [address] | | | RE | | | | [place] [address] | | | IP-OP | | | | | + +--------+ +------+-------+ + | [facility] | [place] | [id number] | | | | | | | [...] Self | [birth year] | Home: | [address] | | | al/Fam | | 1930 | [phone] | [place] [address] | | | [place] | | | [address] | | + +--------+ +--------+ + +
--- OUTSIDE RECORDS SUMMARY | ~2018-03-23 | XMS | Encounter Summary ---
Demographics + + + | Address | [address] | | | [place] [address] | + + + | Home Phone | | + + + | Preferred Language | Unknown | + + + | Marital Status | | + + + | Christianity Affiliation | Unknown | + + + | Race | Unknown | + + + | Ethnic Group | Unknown | + + + Author + + + | Author | [facility] | + + + | Organization | [facility] | + + + | Address | Unknown | + + + | Phone | Unavailable | + + + Support + + +---------+ + | Name | Relationship | Address | Phone | + + +---------+ + | Bronwyn Hernández | ECON | Unknown | | + + +---------+ + Care Team Providers + +------+ + | Care Qa Software Test Engineer Name | Role | Phone | + [...] [address] | | | | | ([facility]) AV | | [place], [place] | | | | | block, [facility] | | [address] Phone: | | | | | degree ([facility]) | | [phone] | | | | | Near | | Fax: | | | | | syncope | | [phone] | | | | | | | | +--------+--------+ + + + + Encounter Details +--------+ + + + + | Date | Type | Department | Care Team | Description | +--------+ + + + + | 03/09/ | Anesthesia | [facility] | Sebastián Reeves MD | | | 2018 | Event | [facility] | [address] | | | | | Lab [address] | [place] [address] | | | | | [place] [address] | [phone] | | | | | [phone] | | | +--------+ + + + [...] | | | | | [place] [address] | | | | | | [phone] | | | | | | | [...] | | | | | [place] [address] | | | | | | [phone] | | | | | | | [...]
--- OUTSIDE RECORDS SUMMARY | ~2018-03-23 | XMS | Encounter Summary ---
Demographics + + + | Address | [address] | | | [place] [address] | + + + | Home Phone | | + + + | Preferred Language | Unknown | + + + | Marital Status | | + + + | Mandaen Affiliation | Unknown | + + + | Race | Unknown | + + + | Ethnic Group | Unknown | + + + Author + + + | Author | [facility] | + + + | Organization | [facility] | + + + | Address | Unknown | + + + | Phone | Unavailable | + + + Support + + +---------+ + | Name | Relationship | Address | Phone | + + +---------+ + | Bronwyn Hernández | ECON | Unknown | | + + +---------+ + Care Team Providers + +------+ + | Care Sales Support Technician Name | Role | Phone | + +------+ + PCP | Unavailable | + +------+ + Encounter Details +--------+ + + + + | Date | Type | Department | Care Team | Description | +--------+ + + + + | 03/09/ | Procedure | [facility] | | | | 2018 | Pass [address] | | | | | | [facility] | | | | | | [address] [facility] [address] | | | | | | [place] [address] | | | | | | [phone] | | | +--------+ + + + [...] | | | | | | [place] [address] | | | | | | [phone] | | | | | | | [...] | | | | | | [place] [address] | | | | | | [phone] | | | | | | | | +--------+ + + + + | 06/13/ | Documentati | Cardiology | | | | 2018 | on Only | | | | +--------+ + + + + as of this encounter Visit Diagnoses Not on filein this encounter"
--- OUTSIDE RECORDS SUMMARY | ~2018-03-23 | XMS | Encounter Summary ---
Demographics + + + | Address | [address] | | | [place] [address] | + + + | Home Phone | | + + + | Preferred Language | Unknown | + + + | Marital Status | | + + + | Synagogue Affiliation | Unknown | + + + | Race | Unknown | + + + | Ethnic Group | Unknown | + + + Author + + + | Author | [facility] | + + + | Organization | [facility] | + + + | Address | Unknown | + + + | Phone | Unavailable | + + + Support + + +---------+ + | Name | Relationship | Address | Phone | + + +---------+ + | Bronwyn Hernández | ECON | Unknown | | + + +---------+ + Care Team Providers + +------+ + | Care Furnace Liner Name | Role | Phone | + [...] [address] | | | | | ([facility]) AV | | [place], [place] | | | | | block, [facility] | | [address] Phone: | | | | | degree ([facility]) | | [phone] | | | | | Near | | Fax: | | | | | syncope | | [phone] | | | | | | | | +--------+--------+ + + + + Encounter Details +--------+ + + + + | Date | Type | Department | Care Team | Description | +--------+ + + + + | 03/09/ | Anesthesia | [facility] | Sebastián Reeves MD | | | 2018 | Event | [facility] | [address] | | | | | Lab [address] | [place] [address] | | | | | [place] [address] | [phone] | | | | | [phone] | | | +--------+ + + + [...] | | | | | [place] [address] | | | | | | [phone] | | | | | | | [...] | | | | | [place] [address] | | | | | | [phone] | | | | | | | [...]
--- OUTSIDE RECORDS SUMMARY | ~2018-03-23 | XMS | Encounter Summary ---
Demographics + + + | Address | [address] | | | [place] [address] | + + + | Home Phone | | + + + | Preferred Language | Unknown | + + + | Marital Status | | + + + | Methodist Affiliation | Unknown | + + + | Race | Unknown | + + + | Ethnic Group | Unknown | + + + Author + + + | Author | [facility] | + + + | Organization | [facility] | + + + | Address | Unknown | + + + | Phone | Unavailable | + + + Support + + +---------+ + | Name | Relationship | Address | Phone | + + +---------+ + | Bronwyn Hernández | ECON | Unknown | | + + +---------+ + Care Team Providers + +------+ + | Care Director Records Management Name | Role | Phone | + [...] [place] | | | | | | [address] | | | | | | [phone] | | | +--------+ + + + [...] | | | | | [place] [address] | | | | | | [phone] | | | | | | | [...] [place] | | | | | | [place] [address] | | | | | | [phone] | | | | | | | | +--------+ + + + + | 06/13/ | Documentati | Cardiology | | | | 2018 | on Only | | | | +--------+ + + + + as of this encounter Visit Diagnoses Not on filein this encounter"
--- OUTSIDE RECORDS SUMMARY | ~2018-03-23 | XMS | Clinical Summary ---
Demographics + + + | Address | [address] | | | [place] [address] | + + + | Home Phone | | + + + | Preferred Language | Unknown | + + + | Marital Status | | + + + | Adventist Affiliation | Unknown | + + + | Race | Unknown | + + + | Ethnic Group | Unknown | + + + Author + + + | Author | [facility] | + + + | Organization | [facility] | + + + | Address | Unknown | + + + | Phone | Unavailable | + + + Support + + +---------+ + | Name | Relationship | Address | Phone | + + +---------+ + | Bronwyn Gonzalez | ECON | Unknown | | + + +---------+ + Care Team Providers + +------+ + | Care Customer Supply Coordinator Name | Role | Phone | [...] | previously scheduled for a pacemaker in [place] next week. He | | presented with diaphoresis and lightheadedness and complete heart | | block with a ventricular escape of 40 bpm. He was paced | | transcutaneously by paramedics and transported to the emergency | | room at [facility]. His transported here via aircraft for an | | urgent CONTACT ACID PLANT OPERATOR pacemaker because of dilated cardiomyopathy history an [...] scheduled have a pacemaker next week in [place], but | | because of his symptoms, urgent CONTACT ACID PLANT OPERATOR pacemaker was recommended | | today at [facility]. | + + + + [...] 2018 | Support | | | ([facility]) (Primary Dx); | | | | | | Dilated | | | | | | cardiomyopathy | | | | | | ([facility]); Paroxysmal | | | | | | atrial fibrillation | | | | | | ([facility]) | +--------+ + + + + | 03/11/ | Telephone | | Jorge | | | 2017 | | | ASHLEY Padilla | | +--------+ + + + + | 03/09/ | Hospital | | Austin Vallecillo, | AV block, 3rd degree | | 2018 - | Encounter | | Oswaldo Blake MD | ([facility]) (Primary Dx); | | | | | | Near syncope; | | 03/10/ | | | | Paroxysmal atrial | | 2017 | | | | fibrillation ([facility]) | +--------+ + + + + +---+ [...] | | | Hospital: | | | [facility] | | | Scientific | | | CONTACT ACID PLANT OPERATOR | | | defibrillat | | | or, on | | | February | | | , | | | 2018Hospita | | | l Course: | | | He [facility] | | | [facility] | | and | | | [place] | | | via | | | [...] | scheduled | | | have a CONTACT ACID PLANT OPERATOR | | | device | | | placed in | | | [place] | | | Jean | | | [...] | lab and a | | | CONTACT ACID PLANT OPERATOR | | | defibrillat | | | [...] | | Drug Store | | | [address] - | | | [place], | | | [place] - [address] AT | | | [address]EC OF [address] | | | [address], | | | [place] | | | [place] | | | [address] | | | Phone: | | | [phone] | | | 1 | | | losartan 25 | | | MG | | | tablet | | | metoprolol | | | 25 MG 24 hr | | | tablet | | | spironolact | | | one 25 MG | | | tablet | | | Follow-Up:K | | | leeroy Samuels, | | | [id number] | | | [address] | | | [place] | | | [place] | | | [place] | | | [phone] | | | [phone] | | | [...] [place] | | | | | | [place] [address] | | | | | | [phone] | | | | | | | [...] | | 02/03/ | [id number] | | Dye Automation Operator-D-03/09/2018Implanted: | c | Subcla | SCIENTIFIC | | 2019 | /[id number] | | Qty: 1 on 03/09/2018 by [...] | | SCIENTIFIC | | 2019 | /[id number] | | Qty: 1 on 03/09/2018 by | Rhythm | | | | | 5 | | Oswaldo Samuels MD | | | | | | /[id number] | | | Manage | | | | | 7 | | | ment | | | | | | + +--------+--------+ +--------+--------+--------+ | Ingevity | Cardia | Heart | [place] | | 03/10/ | 7740 | | Mri-03/09/2018Implanted: Qty: | c | | SCIENTIFIC | | 2018 | /[id number] | | 1 on 03/09/2018 by Solomon | David | | | | | 1 | | MD Oswaldo | | | | | | /[id number] | | | Manage | | | | | 9 | | | ment | | | | | | + +--------+--------+ +--------+--------+--------+ | End[employer] [place] | Cardia | Heart | [place] | | 12/24/ | 0292 | | Sg-03/09/2018Implanted: Qty: 1 | c | | SCIENTIFIC | | 2019 | /[id number] | | on 03/09/2018 by Oswaldo Samuels, | Rhythm | | | | | 3 | | MD | | | | | | /[id number] | | | Manage | | | [...] | [facility] | | | performed at [facility], [address] | | LABORATORY | | | [address], | | | | | [place] [address] | | | + + + + + + + | Specimen | + + | Blood | + + + + + + + | Performing | Address | City/State/Zipcode | Phone Number | | Organization | | | | + + + + + | [facility] | [address] | [place] [address] | [phone] | | LABORATORY | [address]vd[address] | | | + + + + + Basic metabolic panel (03/10/2018 4:41 AM) + + + + + | Component | Value | Ref Range | Performed At | + + + + + | SODIUM | 142 | 135 - 145 mmol/L | [facility] | | | | | LABORATORY | [...] 1.1 | 0.70 - 1.30 mg/dL | [facility] | | | | | LABORATORY | + + + + + | BUN/CREAT | 26 | | [facility] | | | | | LABORATORY | + + + + + | CALCIUM | 8.3 (L) | 8.5 - 10.5 mg/dL | [facility] | | | | | LABORATORY | + + + + + | EGFR | >60Comment: GFR <60: | >60 mL/min/1.73m2 | [facility] | | | CHRONIC KIDNEY [...] | | | | | performed at [facility], [address] | | | | | [facility], | | | | | [place] [address] | | | + + + + + + + | Specimen | + + | Blood | + + + + + + + | Performing | Address | City/State/Zipcode | Phone Number | | Organization | | | | + + + + + | [facility] | [address] [facility] | [place] [address] | [phone] | | LABORATORY | [place]. | | | + + + + + X-ray chest frontal and lateral () (03/09/2018 10:45 PM) + + + | [...] At | + + + | HUSSAIN GONZALEZ 1930 88 years Male XR CHEST 2 [...] - 03/09/2018 11:21 PM PDT HUSSAIN FRAIRE [id number] years | | MaleXR CHEST 2 VIEW [...] + + + + + | [facility] | [address] | [place] [address] | | + + + + + [...] | + + + | | [facility] | | | RADIOLOGY | | PROCEDURE: CONTACT ACID PLANT OPERATOR defibrillator implant. DATE: 03/09/2018. | | | HISTORY: This 88-year-old gentleman was referred urgently by | | | Rasheed in the emergency room at [facility] because of | | | symptomatic complete heart block associated with relative | | | hypotension and a heart rate in the 40 beats per minute range. He | | | presented today with diaphoresis and some lightheadedness and felt | | | poorly. He was therefore transferred to [facility] | | | Center for a CONTACT ACID PLANT OPERATOR pacemaker. He has a baseline left bundle branch | | | block and severe LV systolic dysfunction with an ejection fraction of | | | 25-30 percent in the context of moderate MR and TR and moderate to | | | severe pulmonary hypertension. He has an ischemic cardiomyopathy | | | and has had 4 prior stents. A CONTACT ACID PLANT OPERATOR device was planned for next week | | | in [place], [place], but because of his symptomatic complete [...] into the vessel. A | | | 9-Paraguayan introducer was placed into the subclavian vein, and through | | | that, a [employer], model 0292, serial number [id number] lead was | | | placed into the right ventricle and screwed into position towards the | | | apex. This was a single-coil lead. The lead was anchored with | | | two #1 Ethibond sutures. There was no diaphragmatic pacing at 10 | | | V. A 9-Paraguayan Tescott sheath was placed into the subclavian vein [...] use, but | | | unfortunately the [employer] lead would not negotiate through | | | the corkscrew. A Quad, model 4671, serial number [id number] lead was | | | used. We tried and tried without success. The middle cardiac | | | vein looked like a good sized vessel but it had an extremely vertical | | | takeoff downward from the coronary sinus that made access almost | | | impossible. We tried the [employer] subselector and a | | | [...] the coronary sinus was accessed with the [facility] | | | Scientific subselector. A guidewire [...] of 11.2 mV. A | | | 6-Paraguayan introducer was placed into the subclavian vein, and through | | | that, a [employer], model 7740, serial number [id number] lead was | | | placed into [...] | | | were attached to a [employer] Dynagen CONTACT ACID PLANT OPERATOR defibrillator (model | | | G158, serial number [id number]). That device was placed into the left [...] | | | | | | PROCEDURE: CONTACT ACID PLANT OPERATOR defibrillator implant. | | | | DATE: 03/09/2018. | | | | HISTORY: This 88-year-old gentleman was referred urgently by Dr. Iqbal in | | the emergency room at [facility] because of symptomatic | | complete heart block associated with relative hypotension and a heart rate | | in the 40 beats per minute range. He presented today with diaphoresis and | | some lightheadedness and felt poorly. He was therefore transferred to | | [facility] for a CONTACT ACID PLANT OPERATOR pacemaker. He has a baseline left | | bundle branch block and severe LV systolic dysfunction with an ejection | | fraction of 25-30 percent in the context of moderate MR and TR and moderate | | to severe pulmonary hypertension. He has an ischemic cardiomyopathy and | | has had 4 prior stents. A CONTACT ACID PLANT OPERATOR device was planned for next week in | | [place], [place], but because of his symptomatic complete [...] guidewires were placed into the vessel. A 9-Paraguayan introducer was placed | | into the subclavian vein, and through that, a [employer], model | | 0292, serial number [id number] lead was placed into the right ventricle and | | screwed into position towards the apex. This was a single-coil lead. The | | lead was anchored with two #1 Ethibond sutures. There was no diaphragmatic | | pacing at 10 V. | | | | A 9-Paraguayan Tescott sheath was placed into the subclavian vein and down into | | the right atrium. A Tescott introducer was used to access the coronary [...] | | to use, but unfortunately the [employer] lead would not negotiate | | through the corkscrew. A Quad, model 4671, serial number [id number] lead was | | used. We tried and tried without success. The middle cardiac vein looked | | like a good sized vessel but it had an extremely vertical takeoff downward | | from the coronary sinus that made access almost impossible. We tried the | | [employer] subselector and a Yg selector through [...] the coronary sinus was accessed with the [employer] | | subselector. A guidewire was [...] 11.2 mV. | | | | A 6-Paraguayan introducer was placed into the subclavian vein, and through | | that, a [employer], model 7740, serial number [id number] lead was placed | | into the [...] V. All leads were attached to a [employer] Dynagen CONTACT ACID PLANT OPERATOR | | defibrillator (model G158, serial number [id number]). That device was placed | | into [...] | + + + + + | [facility] | [address] | [place] [address] | | + + + + + MRSA by PCR (03/09/2018 7:26 PM) + + + + + | Component | Value | Ref Range | Performed At | + + + + + | SOURCE | NARES(NOSE) | | [facility] | + + + + + | MRSA PCR | NEGATIVEComment: Testing | NEGATIVE | [facility] | | | performed at [facility] | | | | | [address];[place], [place] | | | | | [address] | | | + + + + + + + | Specimen | + + | Nasopharyngeal - | | Nares(Nose) | + + + + + + + | Performing | Address | City/State/Zipcode | Phone Number | | Organization | | | | + + + + + | [facility] | [address] | [place] [address] | | + + + + + X-ray Chest 1 View (03/09/2018 6:13 PM) + + + | Narrative | Performed At | + + + | This is a non-reportable procedure without a radiologist report and | [facility] | | is used for image storage only | RADIOLOGY | + + + + + + + + | Performing | Address | City/State/Zipcode | Phone Number | | Organization | | | | + + + + + | [facility] | [address] | [place] [address] | | + + + + + [...] +------+-------+ + | MEDICARE | MEDICA | [id number] | | | [address] | | | RE | | | | [place] [address] | | | IP-OP | | | | | + +--------+ +------+-------+ + | UNITED HEALTHCARE | UNITED | [id number] | | | | | | | [...] Self | [birth year] Home: | [address] | | | al/Fam | | [phone] | [phone] [place] [address] | | | lokesh | | | [phone] | | + +--------+ +--------+ + +
--- OUTSIDE RECORDS SUMMARY | ~2018-03-23 | XMS | Encounter Summary ---
Demographics + + + | Address | [address] | | | [place] [address] | + + + | Home Phone [...] + + + | Author | [facility] | + + + | Organization | [facility] | + + + | Address | Unknown | + + + | Phone | Unavailable | + + + Support + + +---------+ + | Name | Relationship | Address | Phone | + + +---------+ + | Bronwyn Hernández | ECON | Unknown | | + + +---------+ + Care Team Providers + +------+ + | Care Lubricating Specialist Name | Role | Phone | [...] [place] | | | | | | [address] | | | | | | [phone] | | | +--------+ + + + [...] | | | | | [place] [address] | | | | | | [phone] | | | | | | | [...] | | | | | | [place] [address] | | | | | | [phone] | | | | | | | | +--------+ + + + + | 06/13/ | Documentati | Cardiology | | | | 2018 | on Only | | | | +--------+ + + + + as of this encounter Visit Diagnoses Not on filein this encounter"
[~2018-03-23 12:45] MED LIST changes: +LASIX20 MG PO
--- OUTSIDE RECORDS SUMMARY | 2018-03-23 12:50 | XMS ---
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 [place] VISIT COUNT (12 MO.) [address] TOTAL 7 NOTE: Visits indicate total known visits. ED/C VISIT TRACKING (12 MO.) 03/23/2018 12:46 [facility]guy[facility] TYPE: Emergency COMPLAINT: - TIREDNESS 03/11/2018 09:59 [facility] TYPE: Emergency COMPLAINT: - POST OP PROBLEMS DIAGNOSES: - Old myocardial infarction - Encounter for surgical aftercare following surgery on the circulatory system - Heart failure, unspecified - Other intermediate accountant (current) drug therapy - Personal history of nicotine dependence - Presence of cardiac pacemaker 03/09/2018 18:46 [facility] DIAGNOSES: - Syncope and collapse - Atrioventricular block, complete 03/09/2018 14:44 [facility] [place] TYPE: Emergency COMPLAINT: - HEART BLOCK DIAGNOSES: - Old myocardial infarction - Heart failure, unspecified - Syncope and collapse - Unspecified atrial fibrillation - Chronic obstructive pulmonary disease, unspecified - Other intermediate accountant (current) drug therapy - Atrioventricular block, complete - Personal history of nicotine dependence 11/01/2017 06:13 [facility] [place] TYPE: Emergency COMPLAINT: - NECK PAIN/NO INJURY DIAGNOSES: - Personal history of nicotine dependence - Chronic obstructive pulmonary disease, unspecified - Other chcf (current) drug therapy - Old myocardial infarction [...] - OTHER SPECIFIED POSTPROCEDURAL STATES - Other chcf (current) drug therapy - Other specified postprocedural states - Nicotine dependence, unspecified, uncomplicated - 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
[2018-03-24] MEDS ORDERED: COZAAR25 MG PO ×2 (08:21→11:31)
[2018-03-24] MEDS ORDERED: K-TAB ER20 MEQ PO (08:25)
[2018-03-24] MEDS ORDERED: ALDACTONE25 MG PO ×2 (08:26→11:31)
[2018-03-24] MEDS ORDERED: PROAIR HFA8.5 GM INH (11:17)
[2018-03-24] MEDS ORDERED: TRELEGY ELLIPT1 EACH INH (11:18)
[2018-03-24] MEDS ORDERED: CITRUCEL500 MG PO (11:18)
== END 2018-03-24 14:40 | disposition home or self-care (01) ==
LOC: ED 12:45 → MS 12:47
PROVIDERS: ADMIT Internal Medicine
DX: N17.9 Acute kidney failure, unspecified (principal); E86.0 Dehydration; I95.1 Orthostatic hypotension; I50.42 Chronic combined systolic (congestive) and diastolic (congestive) heart failure; I48.0 Paroxysmal atrial fibrillation; J44.9 Chronic obstructive pulmonary disease, unspecified; E78.5 Hyperlipidemia, unspecified; I25.2 Old myocardial infarction; M10.9 Gout, unspecified; I25.10 Atherosclerotic heart disease of native coronary artery without angina pectoris; Z95.5 Presence of coronary angioplasty implant and graft; Z87.891 Personal history of nicotine dependence; Z23 Encounter for immunization; Z95.810 Presence of automatic (implantable) cardiac defibrillator; Z79.01 Long term (current) use of anticoagulants; Z79.51 Long term (current) use of inhaled steroids; Z79.899 Other long term (current) drug therapy
CPT/HCPCS: 36415; 80053; 81001; 82565; 82570; 84300; 84484; 84520; 84540; 85025; 94640; 94760; 96360; 96361; 99285; G0008; G0378; J7040; J7120

== ENCOUNTER 2018-03-30 13:26 | Emergency (ER) | payer MEDICARE ==
[~2018-03-30] VITALS: Ht 170.2 cm; Wt 66.2 kg
--- OUTSIDE RECORDS SUMMARY | ~2018-03-30 | XMS | Encounter Summary ---
Demographics + + + | Address | [address] | | | [place] [address] | + + + | Home Phone | | + + + | Preferred Language | Unknown | + + + | Marital Status | | + + + | Tenriism Affiliation | Unknown | + + + | Race | Unknown | + + + | Ethnic Group | Unknown | + + + Author + + + | Author | [facility] | + + + | Organization | [facility] | + + + | Address | Unknown | + + + | Phone | Unavailable | + + + Support + + +---------+ + | Name | Relationship | Address | Phone | + + +---------+ + | Bronwyn Hernández | ECON | Unknown | | + + +---------+ + Care Team Providers + +------+ + | Care Project Controls Specialist Name | Role | Phone | + +------+ + PCP | Unavailable | + +------+ + Encounter Details +--------+ + + + + | Date | Type | Department | Care Team | Description | +--------+ + + + + | 03/15/ | Clinical | [facility] | Edmond Santos RN | Complete heart block | | 2017 | Support | [facility] | | ([facility]) (Primary Dx); | | | | [address] | | Dilated | | | | [place], [place] | | cardiomyopathy | | | | [address] | | ([facility]); Paroxysmal | | | | [phone] | | atrial fibrillation | | | | | | ([facility]) | +--------+ + + + + Social [...] + + + as of this encounter Progress Notes Edmond Santos RN - 03/15/2018 10:30 AM PDTPatient is status post DYE LINE OPERATOR defibrillator implant on 03/09/[address] Oswaldo [place] and is here for a wound check. Visual inspection complete. S urgical wound margins intact and healing well. No signs of infection. Patient educated on s igns and symptoms of infection and any other post operative complications to watch for. Disc ussed appropriate home care of this wound. Home care includes incision care, activity precau tion, and appropriate safety measures. All questions answered. [facility] Plan of Treatment +--------+ + + + + | Date | Type | Specialty | Care Team | Description | +--------+ + + + + | 04/19/ | Documentati | Cardiology | | | | 2017 | on Only | | | | +--------+ + + + + | 04/19/ | Office | Cardiology | Nicolette Ibarra | | | 2017 | Visit | | [facility] [address] [address] | | | | | | [address] | | | | | | [place] [address] | | | | | | [phone] | | | | | | | | +--------+ + + + + | 06/13/ | Documentati | Cardiology | | | | 2017 | on Only | | | | +--------+ + + + + + +--------+ + + | Name | Priori | Associated Diagnoses | Order Schedule | | | ty | | | + +--------+ + + | Basic metabolic panel | Routin | Complete heart | Expected: | | | e | block (HCC) Dilated | 03/15/2018, Expires: | | | | cardiomyopathy | 03/15/2019 | | | | (HCC) Paroxysmal | | | | | atrial fibrillation | | | | | (HCC) | | + +--------+ + + as of this encounter Visit Diagnoses + + | Diagnosis | + + | Complete heart block (HCC) - Primary | + + | Atrioventricular block, complete | + + | Dilated cardiomyopathy (HCC) | + + | Other primary cardiomyopathies | + + | Paroxysmal atrial fibrillation (HCC) | + + | Atrial fibrillation | + +"
--- OUTSIDE RECORDS SUMMARY | ~2018-03-30 | XMS | Encounter Summary ---
Demographics + + + | Address | [address] | | | [place] [address] | + + + | Home Phone | | + + + | Preferred Language | Unknown | + + + | Marital Status | | + + + | Orthodox Affiliation | Unknown | + + + | Race | Unknown | + + + | Ethnic Group | Unknown | + + + Author + + + | Author | [facility] | + + + | Organization | [facility] | + + + | Address | Unknown | + + + | Phone | Unavailable | + + + Support + + +---------+ + | Name | Relationship | Address | Phone | + + +---------+ + | Bronwyn Hernández | ECON | Unknown | | + + +---------+ + Care Team Providers + +------+ + | Care Wood Stainer Name | Role | Phone | + [...] | | Internal | Diagnoses | | [facility] | | | | Medicine | 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 | | [address] | | | | | fibrillation | | [address] | | | | | (HCC) AV | | [place], [place] | | | | | block, 3rd | | [address] Phone: | | | | | degree (HCC) | | [phone] | | | | | Near | | Fax: | | | | | syncope | | [phone] | | | | | | | | +--------+--------+ + + + + Encounter Details +--------+ + + + + | Date | Type | Department | Care Team | Description | +--------+ + + + + | 03/09/ | Hospital | [facility] | Austin Vallecillo, | AV block, 3rd degree | | 2018 - | Encounter | [facility] | MD [address] | (HCC) (Primary Dx); | | | | [facility] | [place] [address] | Near syncope; | | 03/10/ | | [address] | [phone] | Paroxysmal atrial | | 2018 | | [place] [address] | | fibrillation (HCC) | | | | [phone] | Oswaldo Samuels MD [address] | | | | | | [address] | | | | | | [place] [address] | | | | | | [phone] | | | | | | | [...] may be different from the o marbella. [facility] PATIENT NAME: Hussian Hernández : 1930: AGE: 88 y.o. ADMISSION [...] Diagnoses: Same as above. Procedures In Hospital: [employer] CONVEYOR WORKER defibrillator, on March 10, 2018 Hospital Course: He was transferred from [facility] via [employer] helicopter sherley use of symptomatic complete heart block with a heart rate of 40 and a blood pressure of 90. He was previously scheduled have a CONVEYOR WORKER device placed in [facility] because of the complete heart block, it was felt this should be done closer to home. He has a chronic left bundle-branch block and chronic systolic congestive heart failure with an ejection frac tion of 25%. Shortly after he arrived in the emergency room via helicopter, he was taken em ergently to the EP lab and a CONVEYOR WORKER defibrillator was placed. Ventricular fibrillation was not [...] 100-62.5-25 mcg/puff inhaler Refills: 0 Generic drug: uebsnkacthe-tpmiyeulmvne-elfvymprct vitamin C 1000 MG tablet Refills: 0 [...] Your Medications These medications were sent to [facility] [address] [place] [address] [place] - [address] AT [facility] [address], [place] [address] losartan 25 MG tablet metoprolol 25 MG 24 hr tablet spironolactone 25 MG tablet Follow-Up: Oswaldo Samuels MD [address] [place] [address] [place] [id number] Schedule an appointment as soon as possible for a visit in 1 week For wound re-check WITH commission clerk took 30 minutes, to include final examination, [...] seen by the Nurse or Nurse Pra ctdariner in approximately 7-10 days after pacemaker implantation. [...] usage. Your appointments will be at the [facility] in [place] across from the [facility]. The address is [address] [place] [address]. The office is located on the [address] [place] [address]. This appointment should already be scheduled for you, but if not, please call [phone] to schedule your appointment. [facility] [...] at home, please call the office at [phone]. in this encounter Medications at Time of [...] [address] | | | | | | [place] [address] | | | | | | [phone] | | | | | | | [...] | [facility] | | | performed at [facility], [address] | | LABORATORY | | | [place] [address], | | | | | [place] [address] | | | + + + + + + + | Specimen | + + | Blood | + + + + + + + | Performing | Address | City/State/Zipcode | Phone Number | | Organization | | | | + + + + + | [facility] | [address] [facility] | [place] [address] | [phone] | | LABORATORY | [address] | | [...] the | | | | | MDRD IDAL traceable | | | | | equation.Testing | | | | | performed at [facility], [address] | | | | [facility], | | | | | [place] [address] | | | + + + + + + + | Specimen | + + | Blood | + + + + + + + | Performing | Address | City/State/Zipcode | Phone Number | | Organization | | | | + + + + + | [facility] | [address] [facility] | [place] [address] | [phone] | | LABORATORY | Blvd. | | [...] Rad Results In - 03/09/2018 11:21 PM MAKENZIE FRAIRE [id number] years | | MaleXR CHEST 2 VIEW FRONTAL AND LATERAL03/09/2018 10:45 PMINDICATION: Third degree AV | | block, device placementCOMPARISON: Plain film, 9/12/2018TECHNIQUE: Two view chest, PA | | and [...] + + + | [facility] | [address] [facility] | [place] [address] | | + + + + + EP ICD BIV Insertion generator/leads (03/09/2018 9:20 PM) + + + | Impressions | Performed At | + + + | FINAL IMPRESSION: 1. Good pacing and sensing thresholds. 2. | [facility] | | Suboptimal left ventricular lead position, [...] (sooner if need be). Read by OSWALDO SAMUELS, | | | 03/09/2018 10:57 P Electronically signed by Oswaldo Samuels MD on | | | 03/11/2018 5:09 PM | | + + + + + + | Narrative | Performed At | + + + | | [facility] | | | RADI[facility] | | PROCEDURE: CONVEYOR WORKER defibrillator implant. DATE: 03/09/2018. | | | HISTORY: This 88-year-old gentleman was referred urgently by | | | Rasheed in the emergency room at [facility] because of | | | symptomatic complete heart block associated with relative | | | hypotension and a heart rate in the 40 beats per minute range. He | | | presented today with diaphoresis and some lightheadedness and felt | | | poorly. He was therefore transferred to [facility] | | | [place] for a CONVEYOR WORKER pacemaker. He has a baseline left bundle branch | | | block and severe LV systolic dysfunction with an ejection fraction of | | | 25-30 percent in the context of moderate MR and TR and moderate to | | | severe pulmonary hypertension. He has an ischemic cardiomyopathy | | | and has had 4 prior stents. A CONVEYOR WORKER device was planned for next week | | | in [place], [place], but because of his symptomatic complete | | | heart block, it was recommended that he get this device placed | | | locally. PROCEDURE NOTE: The patient was brought to the | | | electrophysiology laboratory in postabsorptive nonsedated | | | state. Dr. Reevse was present from anesthesia for the entire [...] into the vessel. A | | | 9-Fijian introducer was placed into the subclavian vein, and through | | | that, a UXCam, model 0292, serial number [id number] lead was | | | placed into the right ventricle and screwed into position towards the | | | apex. This was a single-coil lead. The lead was anchored with | | | two #1 Ethibond sutures. There was no diaphragmatic pacing at 10 | | | V. A 9-Fijian [place] sheath was placed into the subclavian vein | | | and down into the right atrium. A [place] introducer was used to | | | [...] use, but | | | unfortunately the [employer] lead would not negotiate through | | | the corkscrew. A Quad, model 4671, serial number [id number] lead was | | | used. We tried and tried without success. The middle cardiac | | | vein looked like a good sized vessel but it had an extremely vertical | | | takeoff downward from the coronary sinus that made access almost | | | impossible. We tried the [employer] subselector and a | | | [place] selector through that without success. A 0.014 [...] the coronary sinus was accessed with the [employer] | | | Scientific subselector. A guidewire [...] of 11.2 mV. A | | | 6-Fijian introducer was placed into the subclavian vein, and through | | | that, a [employer], model 7740, serial number [id number] lead was | | | placed into [...] | | | were attached to a [employer] Dynagen CONVEYOR WORKER defibrillator (model | | | G158, serial number [id number]). That device was placed into the left [...] Note | + + | Efren Perry Results In - 03/11/2018 5:15 PM PDT | | | | | | PROCEDURE: CONVEYOR WORKER defibrillator implant. | | | | DATE: 03/09/2018. | | | | HISTORY: This 88-year-old gentleman was referred urgently by Dr. Iqbal in | | the emergency room at [facility] because of symptomatic | | complete heart block associated with relative hypotension and a heart rate | | in the 40 beats per minute range. He presented today with diaphoresis and | | some lightheadedness and felt poorly. He was therefore transferred to | | [facility] for a CONVEYOR WORKER pacemaker. He has a baseline left | | bundle branch block and severe LV systolic dysfunction with an ejection | | fraction of 25-30 percent in the context of moderate MR and TR and moderate | | to severe pulmonary hypertension. He has an ischemic cardiomyopathy and | | has had 4 prior stents. A CONVEYOR WORKER device was planned for next week in | | [place], [place], but because of his symptomatic complete [...] guidewires were placed into the vessel. A 9-Fijian introducer was placed | | into the subclavian vein, and through that, a [employer], model | | 0292, serial number [id number] lead was placed into the right ventricle and | | screwed into position towards the apex. This was a single-coil lead. The | | lead was anchored with two #1 Ethibond sutures. There was no diaphragmatic | | pacing at 10 V. | | | | A 9-Fijian [place] sheath was placed into the subclavian vein and down into | | the right atrium. A Yg introducer was used to access the coronary [...] | | to use, but unfortunately the [employer] lead would not negotiate | | through the corkscrew. A Quad, model 4671, serial number [id number] lead was | | used. We tried and tried without success. The middle cardiac vein looked | | like a good sized vessel but it had an extremely vertical takeoff downward | | from the coronary sinus that made access almost impossible. We tried the | | [employer] subselector and a Yg selector through that without | | success. [...] the coronary sinus was accessed with the [employer] | | subselector. A guidewire was [...] 11.2 mV. | | | | A 6-Fijian introducer was placed into the subclavian vein, and through | | that, a [employer], model 7740, serial number [id number] lead was placed | | into the [...] V. All leads were attached to a [employer] Dynagen CONVEYOR WORKER | | defibrillator (model G158, serial number [id number]). That device was placed | | into [...] | + + + + + | [facility] | [address] | [place] [address] | | + + + + + MRSA by PCR (03/09/2018 7:26 PM) + + + + + | Component | Value | Ref Range | Performed At | + + + + + | SOURCE | NARES(NOSE) | | [facility] | + + + + + | MRSA PCR | NEGATIVEComment: Testing | NEGATIVE | [facility] | | | performed at [facility];[address] | | | | | [address];[place] | | | | | [address] | | | + + + + + + + | Specimen | + + | Nasopharyngeal - | | Nares(Nose) | + + + + + + + | Performing | Address | City/State/Zipcode | Phone Number | | Organization | | | | + + + + + | [facility] | [address] | [place] [address] | | + + + + + X-ray Chest 1 View (03/09/2018 6:13 PM) + + + | Narrative | Performed At | + + + | This is a non-reportable procedure without a radiologist report and | [facility] | | is used for image storage only | RADIOLOGY | + + + + + + + + | Performing | Address | City/State/Zipcode | Phone Number | | Organization | | | | + + + + + | [facility] | [address] | [place] [address] | | + + + + + [...] | | | Daily, First dose on [facility] 03/10/18 | | PDT | | | | | at 0900 | | | | | | + +-------+ + +---+---+ +---+---+ | | | +---+---+ + +-------+ +-------+---+---+ | atorvastatin (LIPITOR) tablet | Given | | 20 mg | | | | 20 mg 20 mg, Oral, Nightly, | | 8 23:22 | | | | | First dose on [facility] 03/09/18 at 2200 | | PDT | | [...] | | | | | 9, Starting 03/09/18 at 2142 | | | | | | + +-------+ +--------+---+---+ +---+---+ | | | +---+---+ + +-------+ +-------+---+---+ | furosemide (LASIX) tablet 40 mg | Given | | 40 mg | | | | 40 mg, Oral, Every Morning, | | 8 08:37 | | | | | First dose on [facility] 03/10/18 at 0900 | | PDT | | [...] dose on Wed03/10/18 at 0900 | | | | | [...] | | | | | | infusion quality control inspector heading to EP lab | | | | | | + +---------+ +--------+---+---+ +---+---+ | | | +---+---+ in this encounter
--- OUTSIDE RECORDS SUMMARY | ~2018-03-30 | XMS | Encounter Summary ---
Demographics + + + | Address | [address] | | | [place] [address] | + + + | Home Phone | | + + + | Preferred Language | Unknown | + + + | Marital Status | | + + + | Adventist Affiliation | Unknown | + + + | Race | Unknown | + + + | Ethnic Group | Unknown | + + + Author + + + | Author | [facility] [employer] [facility] | + + + | Organization | [facility] | + + + | Address | Unknown | + + + | Phone | Unavailable | + + + Support + + +---------+ + | Name | Relationship | Address | Phone | + + +---------+ + | Bronwyn Hernández | ECON | Unknown | | + + +---------+ + Care Team Providers + +------+ + | Care Photostat Operator Helper Name | Role | Phone | + [...] | | Internal | Diagnoses | | [facility] 4th | | | | Medicine | 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 | | [address] | | | | | fibrillation | | [address] | | | | | (HCC) AV | | [place], [place] | | | | | block, 3rd | | [address] Phone: | | | | | degree (HCC) | | [phone] | | | | | Near | | Fax: | | | | | syncope | | [phone] | | | | | | | | +--------+--------+ + + + + Encounter Details +--------+ + + + + | Date | Type | Department | Care Team | Description | +--------+ + + + + | 03/09/ | Hospital | [facility] | Austin Vallecillo, | AV block, 3rd degree | | 2018 - | Encounter | [facility] | MD [address] | (HCC) (Primary Dx); | | | | [address] | [place] [address] | Near syncope; | | 03/10/ | | [address] | [phone] | Paroxysmal atrial | | 2018 | | [place] [address] | | fibrillation (HCC) | | | | [phone] | Oswaldo Samuels MD [address] | | | | | | [address] | | | | | | [place] [address] | | | | | | [phone] | | | | | | | [...] may be different from the o marbella. [facility] PATIENT NAME: Hussain Hernández : [...] Diagnoses: Same as above. Procedures In Hospital: [employer] RESERVATION CLERK defibrillator, on March 10, 2018 Hospital Course: He was transferred from [facility] via [employer] helicopter sherley use of symptomatic complete heart block with a heart rate of 40 and a blood pressure of 90. He was previously scheduled have a RESERVATION CLERK device placed in [facility] because of the complete heart block, it was felt this should be done closer to home. He has a chronic left bundle-branch block and chronic systolic congestive heart failure with an ejection frac tion of 25%. Shortly after he arrived in the emergency room via helicopter, he was taken em ergently to the EP lab and a RESERVATION CLERK defibrillator was placed. Ventricular fibrillation was not [...] 100-62.5-25 mcg/puff inhaler Refills: 0 Generic drug: iuhuxlmtbkr-ieoanrntazod-tbvwtbxlqd vitamin C 1000 MG tablet Refills: 0 [...] Your Medications These medications were sent to [facility] [address] [place] [address] [place] - [address] AT [facility] [address], [place] [address] losartan 25 MG tablet metoprolol 25 MG 24 hr tablet spironolactone 25 MG tablet Follow-Up: Oswaldo Samuels MD [address] [place] [address] [place] [id number] Schedule an appointment as soon as possible for a visit in 1 week For wound re-check WITH button maker took 30 minutes, to include final examination, [...] usage. Your appointments will be at the [facility] in [place] across from the [facility]. The address is [address] [place] [address]. The office is located on the [address] [place] [address]. This appointment should already be scheduled for you, but if not, please call [phone] to schedule your appointment. [facility] [...] at home, please call the office at [phone]. in this encounter Medications at Time of [...] [address] | | | | | | [place] [address] | | | | | | [phone] | | | | | | | [...] | | | | | [place] [address] | | | + + + + + + + | Specimen | + + | Blood | + + + + + + + | Performing | Address | City/State/Zipcode | Phone Number | | Organization | | | | + + + + + | [facility] | [address] | [place] [address] | [phone] | | LABORATORY | Blvd. | | [...] the | | | | | MDRD IDAK traceable | | | | | equation.Testing | | | | | performed at [facility], [address] | | | | | [facility], | | | | | [place] [address] | | | + + + + + + + | Specimen | + + | Blood | + + + + + + + | Performing | Address | City/State/Zipcode | Phone Number | | Organization | | | | + + + + + | [facility] | [address] | [place] [address] | [phone] | | LABORATORY | Blvd. | | [...] In - 03/09/2018 11:21 PM MAKENZIE FRAIRE [id number] years | | MaleXR CHEST 2 VIEW [...] + + | [facility] | [address] | [place] [address] | | + + + + + [...] | | | RADIOLOGY | | PROCEDURE: RESERVATION CLERK defibrillator implant. DATE: 03/09/2018. | | | HISTORY: This 88-year-old gentleman was referred urgently by | | | Rasheed in the emergency room at [facility] because of | | | symptomatic complete heart block associated with relative | | | hypotension and a heart rate in the 40 beats per minute range. He | | | presented today with diaphoresis and some lightheadedness and felt | | | poorly. He was therefore transferred to [facility] | | | [place] for a RESERVATION CLERK pacemaker. He has a baseline left bundle branch | | | block and severe LV systolic dysfunction with an ejection fraction of | | | 25-30 percent in the context of moderate MR and TR and moderate to | | | severe pulmonary hypertension. He has an ischemic cardiomyopathy | | | and has had 4 prior stents. A RESERVATION CLERK device was planned for next week | | | in [place], [place], but because of his symptomatic complete [...] into the vessel. A | | | 9-Macanese introducer was placed into the subclavian vein, and through | | | that, a Souche, model 0292, serial number [id number] lead was | | | placed into the right ventricle and screwed into position towards the | | | apex. This was a single-coil lead. The lead was anchored with | | | two #1 Ethibond sutures. There was no diaphragmatic pacing at 10 | | | V. A 9-Macanese Fowler sheath was placed into the subclavian vein | | | and down into the right atrium. A Fowler introducer was used to | | | [...] use, but | | | unfortunately the [employer] lead would not negotiate through | | | the corkscrew. A Quad, model 4671, serial number [id number] lead was | | | used. We tried and tried without success. The middle cardiac | | | vein looked like a good sized vessel but it had an extremely vertical | | | takeoff downward from the coronary sinus that made access almost | | | impossible. We tried the [employer] subselector and a | | | Fowler selector through that without success. A 0.014 [...] the coronary sinus was accessed with the [employer] | | | Scientific subselector. A guidewire [...] of 11.2 mV. A | | | 6-Macanese introducer was placed into the subclavian vein, and through | | | that, a [employer], model 7740, serial number [id number] lead was | | | placed into [...] | | | were attached to a [employer] Dynagen RESERVATION CLERK defibrillator (model | | | G158, serial number [id number]). That device was placed into the left [...] | | | | | | PROCEDURE: RESERVATION CLERK defibrillator implant. | | | | DATE: 03/09/2018. | | | | HISTORY: This 88-year-old gentleman was referred urgently by Dr. Iqbal in | | the emergency room at [facility] because of symptomatic | | complete heart block associated with relative hypotension and a heart rate | | in the 40 beats per minute range. He presented today with diaphoresis and | | some lightheadedness and felt poorly. He was therefore transferred to | | [facility] for a RESERVATION CLERK pacemaker. He has a baseline left | | bundle branch block and severe LV systolic dysfunction with an ejection | | fraction of 25-30 percent in the context of moderate MR and TR and moderate | | to severe pulmonary hypertension. He has an ischemic cardiomyopathy and | | has had 4 prior stents. A RESERVATION CLERK device was planned for next week in | | [place], [place], but because of his symptomatic complete [...] guidewires were placed into the vessel. A 9-Macanese introducer was placed | | into the subclavian vein, and through that, a [employer], model | | 0292, serial number [id number] lead was placed into the right ventricle and | | screwed into position towards the apex. This was a single-coil lead. The | | lead was anchored with two #1 Ethibond sutures. There was no diaphragmatic | | pacing at 10 V. | | | | A 9-Macanese Fowler sheath was placed into the subclavian vein [...] | | to use, but unfortunately the [employer] lead would not negotiate | | through the corkscrew. A Quad, model 4671, serial number [id number] lead was | | used. We tried and tried without success. The middle cardiac vein looked | | like a good sized vessel but it had an extremely vertical takeoff downward | | from the coronary sinus that made access almost impossible. We tried the | | [employer] subselector and a Yg selector through [...] the coronary sinus was accessed with the [employer] | | subselector. A guidewire was [...] 11.2 mV. | | | | A 6-Macanese introducer was placed into the subclavian vein, and through | | that, a [employer], model 7740, serial number [id number] lead was placed | | into the [...] V. All leads were attached to a [employer] Dynagen RESERVATION CLERK | | defibrillator (model G158, serial number [id number]). That device was placed | | into [...] | + + + + + | [facility] | [address] | [place] [address] | | + + + + + MRSA by PCR (03/09/2018 7:26 PM) + + + + + | Component | Value | Ref Range | Performed At | + + + + + | SOURCE | NARES(NOSE) | | [facility] | + + + + + | MRSA PCR | NEGATIVEComment: Testing | NEGATIVE | [facility] | | | performed at [facility];[address] | | | | | [address];[place] | | | | | [address] | | | + + + + + + + | Specimen | + + | Nasopharyngeal - | | Nares(Nose) | + + + + + + + | Performing | Address | City/State/Zipcode | Phone Number | | Organization | | | | + + + + + | [facility] | [address] | [place] [address] | | + + + + + X-ray Chest 1 View (03/09/2018 6:13 PM) + + + | Narrative | Performed At | + + + | This is a non-reportable procedure without a radiologist report and | [facility] | | is used for image storage only | RADIOLOGY | + + + + + + + + | Performing | Address | City/State/Zipcode | Phone Number | | Organization | | | | + + + + + | [facility] | [address] | [place] [address] | | + + + + + [...] | | | Daily, First dose on [facility] 03/10/18 | | PDT | | | | | at 0900 | | | | | | + +-------+ + +---+---+ +---+---+ | | | +---+---+ + +-------+ +-------+---+---+ | atorvastatin (LIPITOR) tablet | Given | | 20 mg | | | | 20 mg 20 mg, Oral, Nightly, | | 8 23:22 | | | | | First dose on [facility] 03/09/18 at 2200 | | PDT | [...] | | | | First dose on [facility] 03/10/18 at 0900 | | PDT [...] | | | | | | infusion manager presentation to EP lab | | | | | | + +---------+ +--------+---+---+ +---+---+ | | | +---+---+ in this encounter
--- OUTSIDE RECORDS SUMMARY | ~2018-03-30 | XMS | Encounter Summary ---
Demographics + + + | Address | [address] | | | [place] [address] | + + + | Home Phone | | + + + | Preferred Language | Unknown | + + + | Marital Status | | + + + | Orthodox Affiliation | Unknown | + + + | Race | Unknown | + + + | Ethnic Group | Unknown | + + + Author + + + | Author | [facility] [employer] [facility] | + + + | Organization | [facility] | + + + | Address | Unknown | + + + | Phone | Unavailable | + + + Support + + +---------+ + | Name | Relationship | Address | Phone | + + +---------+ + | Bronwyn Hernández | ECON | Unknown | | + + +---------+ + Care Team Providers + +------+ + | Care Title I Teacher Name | Role | Phone | + +------+ + PCP | Unavailable | + +------+ + Encounter Details +--------+ + + + + | Date | Type | Department | Care Team | Description | +--------+ + + + + | 03/09/ | Orders Only | [facility] | James Baum RN | | | 2017 | | [facility] | | | | | | [place] [address] [address] | | | | | | [place] [address] | | | | | | [phone] | | | +--------+ + + + [...] [place] | | | | | | [facility] [address] | | | | | | [phone] | | | | | | | | +--------+ + + + + | 06/13/ | Documentati | Cardiology | | | | 2017 | on Only | | | | +--------+ + + + + as of this encounter Visit Diagnoses Not on filein this encounter"
--- OUTSIDE RECORDS SUMMARY | ~2018-03-30 | XMS | Encounter Summary ---
Demographics + + + | Address | [address] | | | [place] [address] | + + + | Home Phone | | + + + | Preferred Language | Unknown | + + + | Marital Status | | + + + | Baptism Affiliation | Unknown | + + + | Race | Unknown | + + + | Ethnic Group | Unknown | + + + Author + + + | Author | [facility] [employer] [facility] | + + + | Organization | [facility] | + + + | Address | Unknown | + + + | Phone | Unavailable | + + + Support + + +---------+ + | Name | Relationship | Address | Phone | + + +---------+ + | Bronwyn Hernández | ECON | Unknown | | + + +---------+ + Care Team Providers + +------+ + | Care Manager Books Name | Role | Phone | + +------+ + PCP | Unavailable | + +------+ + Encounter Details +--------+ + + + + | Date | Type | Department | Care Team | Description | +--------+ + + + + | 03/15/ | Clinical | [facility] | Edmond Santos RN | Complete heart block | | 2017 | Support | Cardiology [place] | | ([facility]) (Primary Dx); | | | | [address] | | 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 Oswaldo [...] appropriate safety measures. All questions answered. [facility] Plan of Treatment +--------+ + + + [...] [place] | | | | | | [place] [address] | | | | | | [phone] | | | | | | | [...]
--- OUTSIDE RECORDS SUMMARY | ~2018-03-30 | XMS | Encounter Summary ---
Demographics + + + | Address | [address] | | | [place] [address] | + + + | Home Phone | | + + + | Preferred Language | Unknown | + + + | Marital Status | | + + + | Sikh Affiliation | Unknown | + + + | Race | Unknown | + + + | Ethnic Group | Unknown | + + + Author + + + | Author | [facility] | + + + | Organization | [facility] | + + + | Address | Unknown | + + + | Phone | Unavailable | + + + Support + + +---------+ + | Name | Relationship | Address | Phone | + + +---------+ + | Bronwyn Hernández | ECON | Unknown | | + + +---------+ + Care Team Providers + +------+ + | Care Certified Executive Chef Name | Role | Phone | + +------+ + PCP | Unavailable | + +------+ + Encounter Details +--------+ + + + + | Date | Type | Department | Care Team | Description | +--------+ + + + + | 03/09/ | Orders Only | [facility] | James Baum RN | | | 2017 | | [facility] | | | | | | [place] [address] [address] | | | | | | [place] [address] | | | | | | [phone] | | | +--------+ + + + [...] [place] | | | | | | [facility] [address] | | | | | | [phone] | | | | | | | | +--------+ + + + + | 06/13/ | Documentati | Cardiology | | | | 2017 | on Only | | | | +--------+ + + + + as of this encounter Visit Diagnoses Not on filein this encounter"
--- OUTSIDE RECORDS SUMMARY | ~2018-03-30 | XMS | Clinical Summary ---
Demographics + + + | Address | [address] | | | [place] [address] | + + + | Home Phone | | + + + | Preferred Language | Unknown | + + + | Marital Status | | + + + | Samaritan Affiliation | Unknown | + + + | Race | Unknown | + + + | Ethnic Group | Unknown | + + + Author + + + | Author | [facility] | + + + | Organization | [facility] | + + + | Address | Unknown | + + + | Phone | Unavailable | + + + Support + + +---------+ + | Name | Relationship | Address | Phone | + + +---------+ + | Bornwyn Gonzalez | ECON | Unknown | | + + +---------+ + Care Team Providers + +------+ + | Care Retail Product Advisor Name | Role | Phone | + +------+ + PP | Unavailable | + +------+ + Allergies No Known Allergies Current Medications + + +--------+---------+------+------+-------+ | Prescription | Sig. | Disp. | Refills | Star | End | Statu | | | | | | t | Date | s | | | | | | Date | | | + + +--------+---------+------+------+-------+ | Multiple | Take 60 mg by mouth | | | | | Activ | | Vitamins-Minerals | daily. | | | | | e | | (PRESERVISION AREDS | | | | | | | | PO) | | | | | | | + + +--------+---------+------+------+-------+ | Ascorbic Acid | Take 1,000 mg by | | | | | Activ | | (VITAMIN C) 1000 MG | mouth daily. | | | | | e | | tablet | | | | | | | + + +--------+---------+------+------+-------+ | allopurinol | Take 300 mg by mouth | | | | | Activ | | (ZYLOPRIM) 300 MG | daily. | | | | | e | | tablet | | | | | | | + + +--------+---------+------+------+-------+ | furosemide (LASIX) | Take 40 mg by mouth | | | | | Activ | | 40 MG tablet | daily. | | | | | e | + + +--------+---------+------+------+-------+ | acetaminophen | Take 500 mg by mouth | | | | | Activ | | (TYLENOL) 500 MG | 2 (two) times | | | | | e | | tablet | daily. | | | | | | + + +--------+---------+------+------+-------+ | gabapentin | Take 300 mg by mouth | | | | | Activ | | (NEURONTIN) 300 MG | nightly. | | | | | e | | capsule | | | | | | | + + +--------+---------+------+------+-------+ | atorvastatin | Take 20 mg by mouth | | | | | Activ | | (LIPITOR) 20 MG | nightly. | | | | | e | | tablet | | | | | | | + + +--------+---------+------+------+-------+ | rivaroxaban | Take 20 mg by mouth | | | | | Activ | | (XARELTO) 10 MG | nightly. | | | | | e | | tablet | | | | | | | + + +--------+---------+------+------+-------+ | cholecalciferol | Take 2,000 Units by | | | | | Activ | | (VITAMIN D-3) 1000 | mouth daily. | | | | | e | | units tablet | | | | | | | + + +--------+---------+------+------+-------+ | Magnesium 400 MG | Take 400 mg by mouth | | | | | Activ | | CAPS | daily. | | | | | e | + + +--------+---------+------+------+-------+ | tamsulosin | Take 0.4 mg by mouth | | | | | Activ | | (FLOMAX) 0.4 MG | daily. | | | | | e | | capsule | | | | | | | + + +--------+---------+------+------+-------+ | | Inhale 1 puff into | | | | | Activ | | fluticasone-umeclidi | the lungs daily. | | | | | e | | nium-vilanterol | | | | | | | | (TRELEGY ELLIPTA) | | | | | | | | 100-62.5-25 mcg/puff | | | | | | | | inhaler | | | | | | | + + +--------+---------+------+------+-------+ | albuterol | Inhale 2 puffs into | | | | | Activ | | (PROVENTIL | the lungs every 4 | | | | | e | | HFA;VENTOLIN HFA) | (four) hours as | | | | | | | 108 (90 Base) | needed for Wheezing. | | | | | | | MCG/ACT inhaler | | | | | | | + + +--------+---------+------+------+-------+ | losartan (COZAAR) | Take 1 tablet by | 30 | 11 | 02/26 | | Activ | | 25 MG tablet | mouth nightly. | tablet | | 3/20 | | e | | | | | | 18 | | | + + +--------+---------+------+------+-------+ | metoprolol | Take 1 tablet by | 30 | 11 | 02/26 | 02/26 | Activ | | (TOPROL-XL) 25 MG 24 | mouth daily with | tablet | | /20 | 20 | e | | hr tablet | breakfast. | | | 18 | 19 | | + + +--------+---------+------+------+-------+ | spironolactone | Take 1 tablet by | 30 | 11 | 02/26 | 02/26 | Activ | | (ALDACTONE) 25 MG | mouth daily. | tablet | | 4/20 | 420 | e | | tablet | | | | 18 | 19 | | + + +--------+---------+------+------+-------+ | metoprolol | Take 25 mg by mouth | | | | 09/1 | Disco | | (LOPRESSOR) 25 MG | daily. | | | | 3/20 | ntinu | | tablet | | | | | 18 | ed | + + +--------+---------+------+------+-------+ | fludrocortisone | Take 0.1 mg by mouth | | | | 09/1 | Disco | | (FLORINEF) 0.1 MG | daily. | | | | 3/20 | ntinu | | tablet | | | | | 18 | ed | + + +--------+---------+------+------+-------+ | potassium chloride | Take 20 mEq by mouth | | | | 09/1 | Disco | | (K-DUR) 10 MEQ | 2 (two) times daily | | | | 3/20 | ntinu | | tablet | with meals. | | | | 18 | ed | + + +--------+---------+------+------+-------+ | losartan (COZAAR) | Take 25 mg by mouth | | | | 09/1 | Disco | | 25 MG tablet | daily. | | | | 3/20 | ntinu | | | | | | | 18 | ed | + + +--------+---------+------+------+-------+ Active Problems + + + | Problem | Noted Date | + + + | Complete heart block (HCC) | 03/09/2018 | + + + + + | Overview: This gentleman presented today with complete heart | | block, with a history of left bundle-branch block, and he was | | previously scheduled for a pacemaker in [place] next week. He | | presented with diaphoresis and lightheadedness and complete heart | | block with a ventricular escape of 40 bpm. He was paced | | transcutaneously by paramedics and transported to the emergency | | room at [facility]. His transported here via aircraft for an | | urgent GUITAR INSTRUCTOR pacemaker because of dilated cardiomyopathy history an | | ejection fraction of 20% in the context of prior left | | bundle-branch block. | + + + + + | Dilated cardiomyopathy (HCC) | 03/09/2018 | + + + + + | Overview: History of dilated cardio myopathy, with ejection | | fraction of 20% and left bundle-branch block. 4 prior stents in | | early 1999. Details uncertain. 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 | | He was scheduled have a pacemaker next week in [place], but | | because of his symptoms, urgent GUITAR INSTRUCTOR pacemaker was recommended | | today at [facility]. | + + + + + | Paroxysmal atrial fibrillation (HCC) | 03/09/2018 | + + + + + | Overview: Paroxysmal atrial fibrillation. On rivaroxaban. | | His last dose was 2 nights ago. Moderate MR and moderate left | | atrial enlargement, moderate TR and moderate to severe pulmonary | | hypertension with an RV systolic pressure of 65 mmHg and ejection | | fraction of 25-30%, severe concentric LVH on echo with spectral | | appearance consistent with infiltrative disease in July 2017. | | Grade 2 diastolic dysfunction. | + + + + + | Pulmonary emphysema (HCC) | 03/09/2018 | + + + + + | Overview: He smoked cigarettes for one pack per day for 83 | | years before quitting in July of this year. Has some chronic | | mild wheezing. | + + + + + | History of spinal fusion | 03/09/2018 | + + + + + | Overview: Sounds like he's had a cervical fusion but the | | details are uncertain. | + + + + + | History of gout | 03/09/2018 | + + + Encounters +--------+ + + + + | Date | Type | Specialty | Care Team | Description | +--------+ + + + + | 03/15/ | Clinical | | Santos, Edmond, RN | Complete heart block | | 2018 | Support | | | ([facility]) (Primary Dx); | | | | | | Dilated | | | | | | cardiomyopathy | | | | | | ([facility]); Paroxysmal | | | | | | atrial fibrillation | | | | | | ([facility]) | +--------+ + + + + | 03/11/ | Telephone | | Jorge | | | 2017 | | | ASHLEY Padilla | | +--------+ + + + + | 03/09/ | Hospital | | Austin Vallecillo, | AV block, 3rd degree | | 2018 - | Encounter | | Oswaldo Blake MD | ([facility]) (Primary Dx); | | | | | | Near syncope; | | 03/10/ | | | | Paroxysmal atrial | | 2018 | | | | fibrillation ([facility]) | +--------+ + + + + +---+ + | | Discharge | | | Summaries | | | - Solomon | | | MD Oswaldo - | | | 03/10/2018 | | | 5:09 PM | | | PDT | | | Formatting | | | of this | | | note may be | | | different | | | from the | | | original.[facility] | | | PATIENT | | | NAME: | | | Hussain | | | Gervace Egg | | | : | | | 1930: | | | | | | AGE: 88 | | | y.o.ADMISSI | | | ON DATE: | | | 03/09/2018DI | | | SCHARGE | | | DATE: | | | 03/10/2018 | | | PRIMARY | | | CARE:No | | | primary | | | care | | | provider on | | | file. Oswaldo | | | Samuels, | | | MDElectroph | | | ysiology | | | DISCHARGE | | | SUMMARYPrin | | | cipal | | | Hospital | | | DX: | | | Complete | | | heart | | | blockAdmiss | | | ion | | | Diagnoses:F | | | ULL PROBLEM | | | LIST | | | Patient | | | Active | | | Problem | | | List | | | Diagnosis | | | | | | Complete | | | heart block | | | (HCC) | | | Dilated | | | cardiomyopa | | | thy (HCC) | | | | | | | | | Paroxysmal | | | atrial | | | fibrillatio | | | n (HCC) | | | Pulmonary | | | emphysema | | | (HCC) | | | History | | | of spinal | | | fusion | | | History | | | of gout | | | History of | | | left | | | bundle-bran | | | ch | | | blockThree- | | | vessel | | | coronary | | | diseaseChro | | | behzad | | | systolic | | | congestive | | | heart | | | failureDisc | | | harge | | | Diagnoses: | | | Same as | | | above.Proce | | | dures In | | | Hospital: | | | [place] | | | Scientific | | | GUITAR INSTRUCTOR | | | defibrillat | | | or, on | | | February | | | , | | | 2018Hospita | | | l Course: | | | [facility] | | [facility] | | | [place] | | | via | | | [facility] | | | helicopter | | | because of | | | symptomatic | | | complete | | | heart block | | | with a | | | heart rate | | | of 40 and a | | | blood | | | pressure of | | | 90. He | | | was | | | previously | | | scheduled | | | have a GUITAR INSTRUCTOR | | | device | | | placed in | | | [place] | | | Jean | | | be because | | | of the | | | complete | | | heart | | | block, it | | | was felt | | | this should | | | be done | | | closer to | | | home. 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 | | | Shortly | | | after he | | | arrived in | | | the | | | emergency | | | room via | | | helicopter, | | | he was | | | taken | | | emergently | | | to the EP | | | lab and a | | | GUITAR INSTRUCTOR | | | defibrillat | | | or was | | | placed. | | | Ventricular | | | | | | fibrillatio | | | n was not | | | induced | | | because he | | | had eaten | | | previously | | | and it was | | | deemed that | | | the risks | | | outweighed | | | the benefit | | | of | | | sedation. | | | Good pacing | | | and | | | sensing | | | thresholds | | | were | | | achieved. | | | A | | | postoperati | | | ve chest | | | x-ray | | | revealed | | | good lead | | | placement | | | and he | | | remained | | | stable on | | | telemetry. | | | The next | | | day, he | | | felt much | | | better and | | | ambulated | | | in the sims | | | without | | | difficulty. | | | He was | | | sent home | | | in the | | | afternoon | | | of | | | Saira | | | 2017 in | | | | | | satisfactor | | | y | | | condition.D | | | ischarge | | | Exam:PHYSIC | | | AL EXAM: | | | General | | | Appearance: | | | Alert, | | | oriented, | | | cooperative | | | , no | | | distress, | | | appears | | | younger | | | than his | | | stated age | | | HEENT: | | | Extraocular | | | movements | | | intact.. No | | | | | | xanthelasma | | | s. No | | | jaundice. | | | The pacer | | | site looked | | | good. | | | There was | | | some | | | bruising | | | but no | | | hematoma or | | | sign of | | | infection. | | | NECK: No | | | JVD, No | | | lymphadenop | | | athy. | | | Trachea is | | | at midline. | | | CARDIAC: | | | Normal S1 | | | and S2 | | | heart | | | sounds. No | | | murmurs, | | | rubs, or | | | gallops. | | | Non-displac | | | ed, | | | non-sustain | | | ed apical | | | impulse. | | | CHEST: | | | Normal | | | symmetrical | | | chest | | | excursion. | | | Good | | | bilateral | | | air entry | | | with no | | | crackles or | | | wheezing. | | | No | | | percussion | | | dullness. | | | ABDOMEN: | | | Non tender, | | | non | | | distended, | | | bowel | | | sounds | | | present, no | | | | | | organomegal | | | y. | | | EXTREMITIES | | | : 2+ pulses | | | radial and | | | pedal, | | | symmetric. | | | NEURO: No | | | focal | | | deficits. | | | Normal | | | bulk, | | | power, and | | | tone. SKIN: | | | No bruises | | | or rash. | | | Warm and | | | dry.Vital | | | Signs:Temp: | | | 98.6 F | | | (37 C) | | | BP: 121/66 | | | Heart Rate: | | | 60 Resp: | | | 16 SpO2: 92 | | | %O2 Flow | | | Rate | | | (L/min): 0 | | | L/min Last | | | Wt. Before | | | discharge: | | | Weight: | | | 69.4 kg | | | (153 lb) | | | Wt. | | | Admission: | | | Weight: | | | 69.4 kg | | | (153 lb) | | | Labs:Recent | | | LabsLab | | | | | | 1 WBC 6.52 | | | RBC 3.52* | | | HGB 11.7* | | | HCT 33.9* | | | MCV 96.2 | | | MCH 33.2 | | | MCHC 34.5 | | | RDW 51.2 | | | PLT 175 MPV | | | 10.0 | | | DIFFTYPE | | | AUTOMATED | | | Recent | | | LabsLab | | | | | | 1 WBC 6.52 | | | HGB 11.7* | | | HCT 33.9* | | | NA 142 K | | | 4.2 CL 109 | | | CO2 24 BUN | | | 29* | | | Discharge | | | Medications | | | : | | | Medication | | | List START | | | taking | | | these | | | medications | | | | | | metoprolol | | | 25 MG 24 hr | | | tabletQTY: | | | 30 | | | tabletRefil | | | ls: | | | 11Commonly | | | known as: | | | TOPROL-XLTa | | | ke 1 tablet | | | by mouth | | | daily with | | | breakfast. | | | spironolact | | | one 25 MG | | | tabletQTY: | | | 30 | | | tabletRefil | | | ls: | | | 11Commonly | | | known as: | | | ALDACTONETa | | | ke 1 tablet | | | by mouth | | | daily. | | | CHANGE how | | | you take | | | these | | | medications | | | losartan | | | 25 MG | | | tabletQTY: | | | 30 | | | tabletRefil | | | ls: | | | 11Commonly | | | known as: | | | COZAARTake | | | 1 tablet by | | | mouth | | | nightly.Wha | | | t changed: | | | when to | | | take this | | | CONTINUE | | | taking | | | these | | | medications | | | | | | acetaminoph | | | en 500 MG | | | tabletRefil | | | ls: | | | 0Commonly | | | known as: | | | TYLENOL | | | albuterol | | | 108 (90 | | | Base) | | | MCG/ACT | | | inhalerRefi | | | lls: | | | 0Commonly | | | known as: | | | PROVENTIL | | | HFA;VENTOLI | | | N HFA | | | allopurinol | | | 300 MG | | | tabletRefil | | | ls: | | | 0Commonly | | | known as: | | | ZYLOPRIM | | | atorvastati | | | n 20 MG | | | tabletRefil | | | ls: | | | 0Commonly | | | known as: | | | LIPITOR | | | cholecalcif | | | jayy 1000 | | | units | | | tabletRefil | | | ls: | | | 0Commonly | | | known as: | | | VITAMIN D-3 | | | furosemide | | | 40 MG | | | tabletRefil | | | ls: | | | 0Commonly | | | known as: | | | LASIX | | | gabapentin | | | 300 MG | | | capsuleRefi | | | lls: | | | 0Commonly | | | known as: | | | NEURONTIN | | | Magnesium | | | 400 MG | | | CapsRefills | | | : 0 | | | PRESERVISIO | | | N AREDS | | | PORefills: | | | 0 | | | rivaroxaban | | | 10 MG | | | tabletRefil | | | ls: | | | 0Commonly | | | known as: | | | XARELTO | | | tamsulosin | | | 0.4 MG | | | capsuleRefi | | | lls: | | | 0Commonly | | | known as: | | | FLOMAX | | | TRELEGY | | | ELLIPTA | | | 100-62.5-25 | | | mcg/puff | | | inhalerRefi | | | lls: | | | 0Generic | | | drug: | | | fluticasone | | | -umeclidini | | | um-vilanter | | | ol vitamin | | | C 1000 MG | | | tabletRefil | | | ls: 0 You | | | might also | | | be taking | | | other | | | medications | | | not listed | | | above. If | | | you have | | | questions | | | about any | | | of your | | | other | | | medications | | | , talk to | | | the person | | | who | | | prescribed | | | them or | | | your | | | Primary | | | Care | | | Provider. | | | STOP | | | taking | | | these | | | medications | | | | | | fludrocorti | | | sone 0.1 MG | | | | | | tabletCommo | | | nly known | | | as: | | | FLORINEF | | | metoprolol | | | 25 MG | | | tabletCommo | | | nly known | | | as: | | | LOPRESSOR | | | potassium | | | chloride 10 | | | MEQ | | | tabletCommo | | | nly known | | | as: K-DUR | | | Where to | | | Get Your | | | Medications | | | These | | | medications | | | were sent | | | to | | | [facility] | | | [facility] | | | [id number] - | | | [place], | | | [place] - [address] AT | | | [address] | | | [address], | | | [place] | | | [place] | | | [address] | | | Phone: | | | [phone] | | | 1 | | | losartan 25 | | | MG | | | tablet | | | metoprolol | | | 25 MG 24 hr | | | tablet | | | spironolact | | | one 25 MG | | | tablet | | | Follow-Up:K | | | leeroy Samuels, | | | [id number] | | | [address] | | | [place] | | | [place] | | | [place] | | | [phone] | | | [phone] | | | ule an | | | appointment | | | as soon as | | | possible | | | for a visit | | | in 1 | | | weekFor | | | wound | | | re-check | | | WITH | | | RNDischarge | | | took 30 | | | minutes, to | | | include | | | final | | | examination | | | , | | | discussion | | | of | | | admission, | | | and | | | preparation | | | of | | | prescriptio | | | ns, | | | instruction | | | s for | | | on-going | | | care, | | | follow-up | | | and | | | documentati | | | on of | | | discharge | | | summary.If | | | patient has | | | any | | | further | | | questions | | | or concerns | | | prior to | | | above, | | | instructed | | | to call our | | | office. | | | Signed by: | | | Oswaldo Samuels, | | | MD | | | 03/11/2018, | | | 9:11 AM | +---+ + +--------+ +---+ + + | 03/09/ | Documentati | | Evaristo [facility]a | Other (implant | | 2017 | on Only | | | record ) | +--------+ +---+ + + | 03/09/ | Anesthesia | | Sebastián Reeves MD | | | 2017 | Event | | | | +--------+ +---+ + + | 03/09/ | Orders Only | | James Baum RN | | | 2017 | | | | | +--------+ +---+ + + | 03/09/ | Procedure | | | | | 2017 | Pass | | | | +--------+ +---+ + + from Last 3 Months Immunizations + + + + | Name | Dates Previously Given | Next Due | + + + + | INFLUENZA, PF | 03/18/2016 | | | TRIVALENT HIGH DOSE | | | | 65 YRS [place] > | | | + + + + | Influenza, Trivalent | 02/25/2017 | | | W/Preservative | | | + + + + | Zoster (Live) | 11/13/2015 | | + + + + Social History + [...] on file | | + + + Last Filed Vital Signs + + + [...] PM PDT | + + + + Plan of Treatment +--------+ + + + + | Date | Type | Specialty | Care Team | Description | +--------+ + + + + | 04/19/ | Documentati | | | | | 2017 | on Only | | | | +--------+ + + + + | 04/19/ | Office | | Nicolette Ibarra | | | 2018 | Visit | | [address] | | | | | | [address] | | | | | | [place] [address] | | | | | | [phone] | | | | | | | | +--------+ + + + + | 06/13/ | Documentati | | | | | 2018 | on Only | | | | +--------+ + + + + + + + + + | Health Maintenance | Due Date | Last Done | Comments | + + + + + | Vaccine: Zoster (2 | | 11/13/2015 | | | of 3) | 6 | | | + + + + + | Vaccine: Influenza | | 02/25/2017, 03/18/2016, | | | (#1) | 8 | 04/29/2015, Additional history | | | | | exists | | + + + + + | Vaccine: | | 09/06/2012, 11/04/2001, | | | Dtap/Tdap/Td (2 - | 3 | 11/04/2001, Additional history | | | Td) | | exists | | + + + + + | Vaccine: | Completed | 09/11/2014, 04/28/2007, | | | Pneumococcal 65+ | | 04/13/1995 | | | Low/Medium Risk | | | | + + + + + Implants + +--------+--------+ +--------+--------+--------+ | Implanted | Type | Area | Manufacture | Device | Expira | Model | | | | | r | | tion | / | | | | | | Identi | Date | Serial | | | | | | fier | | / Lot | + +--------+--------+ +--------+--------+--------+ | Dynagen X4 | Cardia | Left: | [place] | | 02/03/ | [id number] | | Early Breastfeeding Care Specialist-D-03/09/2018Implanted: | c | [place] | SCIENTIFIC | | 2019 | /[id number] | | Qty: 1 on 03/09/2018 by | Rhythm | vian | | | | 8 | | Oswaldo Samuels MD | | | | | | /[id number] | | | Manage | | | | | 8 | | | ment | | | | | | + +--------+--------+ +--------+--------+--------+ | Acuity X4 | Cardia | Heart | [place] | | 02/03/ | [id number] | | Straight-03/09/2018Implanted: | c | | SCIENTIFIC | | 2019 | /[id number] | | Qty: 1 on 03/09/2018 by | Rhythm | | | | | 5 | | Oswaldo Samuels MD | | | | | | /[id number] | | | Manage | | | | | 7 | | | ment | | | | | | + +--------+--------+ +--------+--------+--------+ | Ingevity | Cardia | Heart | [place] | | 03/10/ | [id number] | | Mri-03/09/2018Implanted: Qty: | c | | SCIENTIFIC | | 2018 | /[id number] | | 1 on 03/09/2018 by Solomon | David | | | | | 1 | | MD Oswaldo | | | | | | /[id number] | | | Manage | | | | | 9 | | | ment | | | | | | + +--------+--------+ +--------+--------+--------+ | Endotak [place] | Cardia | Heart | [place] | | 12/24/ | 0292 | | Sg-03/09/2018Implanted: Qty: 1 | c | | SCIENTIFIC | | 2019 | /[id number] | | on 03/09/2018 by Oswaldo Samuels, | Rhythm | | | | | 3 | | MD | | | | | | /[id number] | | | Manage | | | | | 7 | | | ment | | | | | | + +--------+--------+ +--------+--------+--------+ Procedures + +--------+ + + + | [...] section. | + +--------+ + + + from Last 3 Months Results CBC w/auto diff (reflex to manual) [...] | [facility] | | | performed at [facility], [address] | | LABORATORY | | | [address], | | | | | [place] [address] | | | + + + + + + + | Specimen | + + | Blood | + + + + + + + | Performing | Address | City/State/Zipcode | Phone Number | | Organization | | | | + + + + + | [facility] | [address] | [place] [address] | [phone] | | LABORATORY | [address] | | | + + + + + Basic metabolic panel (03/10/2018 4:41 AM) + + + + + | Component | Value | Ref Range | Performed At | + + + + + | SODIUM | 142 | 135 - 145 mmol/L | [facility] | | | | | LABORATORY | [...] 1.1 | 0.70 - 1.30 mg/dL | [facility] | | | | | LABORATORY | + + + + + | BUN/CREAT | 26 | | [facility] | | | | | LABORATORY | + + + + + | CALCIUM | 8.3 (L) | 8.5 - 10.5 mg/dL | [facility] | | | | | LABORATORY | + + + + + | EGFR | >60Comment: GFR <60: | >60 mL/min/1.73m2 | [facility] | | | CHRONIC KIDNEY DISEASE, | [...] | | | | | performed at [facility], [address] | | | | [facility], | | | | | [place] [address] | | | + + + + + + + | Specimen | + + | Blood | + + + + + + + | Performing | Address | City/State/Zipcode | Phone Number | | Organization | | | | + + + + + | [facility] | [address] | [place] [address] | [phone] | | LABORATORY | [place]. | | | + + + + [...] - 03/09/2018 11:21 PM PDT HUSSAIN FRAIRE [id number] years | | MaleXR CHEST 2 VIEW [...] + + + + + | [facility] | [address] | [place] [address] | | + + + + + [...] At | + + + | | [facility] | | | RADIOLOGY | | PROCEDURE: GUITAR INSTRUCTOR defibrillator implant. DATE: 03/09/2018. | | | HISTORY: This 88-year-old gentleman was referred urgently by | | | Rasheed in the emergency room at [facility] because of | | | symptomatic complete heart block associated with relative | | | hypotension and a heart rate in the 40 beats per minute range. He | | | presented today with diaphoresis and some lightheadedness and felt | | | poorly. He was therefore transferred to [facility] | | | Center for a GUITAR INSTRUCTOR pacemaker. He has a baseline left bundle branch | | | block and severe LV systolic dysfunction with an ejection fraction of | | | 25-30 percent in the context of moderate MR and TR and moderate to | | | severe pulmonary hypertension. He has an ischemic cardiomyopathy | | | and has had 4 prior stents. A GUITAR INSTRUCTOR device was planned for next week | | | in [place], [place], but because of his symptomatic complete [...] into the vessel. A | | | 9-[employer] introducer was placed into the subclavian vein, and through | | | that, a [employer], model 0292, serial number [id number] lead was | | | placed into the right ventricle and screwed into position towards the | | | apex. This was a single-coil lead. The lead was anchored with | | | two #1 Ethibond sutures. There was no diaphragmatic pacing at 10 | | | V. A 9-Kittitian Valentine sheath was placed into the subclavian vein | | | and down into the right atrium. A Valentine introducer was used to | | | [...] use, but | | | unfortunately the [employer] lead would not negotiate through | | | the corkscrew. A Quad, model 4671, serial number [id number] lead was | | | used. We tried and tried without success. The middle cardiac | | | vein looked like a good sized vessel but it had an extremely vertical | | | takeoff downward from the coronary sinus that made access almost | | | impossible. We tried the [employer] subselector and a | | | Valentine selector through that without success. A 0.014 [...] the coronary sinus was accessed with the [employer] [place] | | | Scientific subselector. A guidewire [...] of 11.2 mV. A | | | 6-Kittitian introducer was placed into the subclavian vein, and through | | | that, a [employer], model 7740, serial number [id number] lead was | | | placed into [...] | | | were attached to a [employer] Dynagen GUITAR INSTRUCTOR defibrillator (model | | | G158, serial number [id number]). That device was placed into the left [...] | | | | | | PROCEDURE: GUITAR INSTRUCTOR defibrillator implant. | | | | DATE: 03/09/2018. | | | | HISTORY: This 88-year-old gentleman was referred urgently by Dr. Iqbal in | | the emergency room at [facility] because of symptomatic | | complete heart block associated with relative hypotension and a heart rate | | in the 40 beats per minute range. He presented today with diaphoresis and | | some lightheadedness and felt poorly. He was therefore transferred to | | [facility] for a GUITAR INSTRUCTOR pacemaker. He has a baseline left | | bundle branch block and severe LV systolic dysfunction with an ejection | | fraction of 25-30 percent in the context of moderate MR and TR and moderate | | to severe pulmonary hypertension. He has an ischemic cardiomyopathy and | | has had 4 prior stents. A GUITAR INSTRUCTOR device was planned for next week in | | [place], [place], but because of his symptomatic complete [...] guidewires were placed into the vessel. A 9-Kittitian introducer was placed | | into the subclavian vein, and through that, a [employer], model | | 0292, serial number [id number] lead was placed into the right ventricle and | | screwed into position towards the apex. This was a single-coil lead. The | | lead was anchored with two #1 Ethibond sutures. There was no diaphragmatic | | pacing at 10 V. | | | | A 9-Kittitian Yg sheath was placed into the subclavian vein and down into | | the right atrium. A Valentine introducer was used to access the coronary [...] | | to use, but unfortunately the [employer] lead would not negotiate | | through the corkscrew. A Quad, model 4671, serial number [id number] lead was | | used. We tried and tried without success. The middle cardiac vein looked | | like a good sized vessel but it had an extremely vertical takeoff downward | | from the coronary sinus that made access almost impossible. We tried the | | [employer] subselector and a Yg selector through [...] the coronary sinus was accessed with the [employer] | | subselector. A guidewire was [...] 11.2 mV. | | | | A 6-Kittitian introducer was placed into the subclavian vein, and through | | that, a [employer], model 7740, serial number [id number] lead was placed | | into the [...] V. All leads were attached to a [employer] Dynagen GUITAR INSTRUCTOR | | defibrillator (model G158, serial number [id number]). That device was placed | | into [...] + + + + + | [facility] | [address] | [place] [address] | | + + + + + MRSA by PCR (03/09/2018 7:26 PM) + + + + + | Component | Value | Ref Range | Performed At | + + + + + | SOURCE | NARES(NOSE) | | [facility] | + + + + + | MRSA PCR | NEGATIVEComment: Testing | NEGATIVE | [facility] | | | performed at [facility] | | | | | [facility];[place], [place] | | | | | [address] | | | + + + + + + + | Specimen | + + | Nasopharyngeal - | | Nares(Nose) | + + + + + + + | Performing | Address | City/State/Zipcode | Phone Number | | Organization | | | | + + + + + | [facility] | [address] | [place] [address] | | + + + + + X-ray Chest 1 View (03/09/2018 6:13 PM) + + + | Narrative | Performed At | + + + | This is a non-reportable procedure without a radiologist report and | [facility] | | is used for image storage only | RADIOLOGY | + + + + + + + + | Performing | Address | City/State/Zipcode | Phone Number | | Organization | | | | + + + + + | [facility] | [address] | [place] [address] | | + + + + + from Last 3 Months Insurance + +--------+ +------+-------+ + | Payer | Benefi | Subscriber | Type | Phone | Address | | | t Plan | ID | | | | | | / | | | | | | | Group | | | | | + +--------+ +------+-------+ + | MEDICARE | MEDICA | [id number] | | | [address] | | | RE | | | | [place] [address] | | | IP-OP | | | | | + +--------+ +------+-------+ + | UNITED HEALTHCARE | UNITED | [id number] | | | | | | | | | | | | | HEALTH | | | | | | | CARE - | | | | | | | AARP | | | | | + +--------+ +------+-------+ + + +--------+ +--------+ + + | Guarantor Name | Accoun | Relation to | Date | Phone | Billing Address | | | t Type | Patient | of | | | | | | | | | | + +--------+ +--------+ + + | HUSSAIN GONZALEZ | Person | Self [birth year] Home: | [address] | | | al/Fam | | 1930 | [phone]- | [place] [address] | | | lokesh | | | [phone] | | + +--------+ +--------+ + +
--- OUTSIDE RECORDS SUMMARY | ~2018-03-30 | XMS | Encounter Summary ---
Demographics + + + | Address | [address] | | | [place] [address] | + + + | Home Phone | | + + + | Preferred Language | Unknown | + + + | Marital Status | | + + + | Denominational Affiliation | Unknown | + + + | Race | Unknown | + + + | Ethnic Group | Unknown | + + + Author + + + | Author | [facility] [employer] [facility] | + + + | Organization | [facility] | + + + | Address | Unknown | + + + | Phone | Unavailable | + + + Support + + +---------+ + | Name | Relationship | Address | Phone | + + +---------+ + | Bronwyn Hernández | ECON | Unknown | | + + +---------+ + Care Team Providers + +------+ + | Care Animal Keeper Name | Role | Phone | + [...] | | 2018 | on Only | Karli Sim | | record ) | | | | [address] | | | | | | [place] | | | | | | [address] | | | | | | [phone] | | | +--------+ + + + [...] + + as of this encounter Progress Evaristo Boyle - 03/09/2018 11:59 PM PDTImplant record in this encounter Plan of Treatment +--------+ + [...] [address] | | | | | | [place] [address] | | | | | | [phone] | | | | | | | | +--------+ + + + + | 06/13/ | Documentati | Cardiology | | | | 2017 | on Only | | | | +--------+ + + + + as of this encounter Visit Diagnoses Not on filein this encounter"
--- OUTSIDE RECORDS SUMMARY | ~2018-03-30 | XMS | Encounter Summary ---
Demographics + + + | Address | [address] | | | [place] [address] | + + + | Home Phone | | + + + | Preferred Language | Unknown | + + + | Marital Status | | + + + | Anglican Affiliation | Unknown | + + + | Race | Unknown | + + + | Ethnic Group | Unknown | + + + Author + + + | Author | [facility]enda [facility] | + + + | Organization | [facility] | + + + | Address | Unknown | + + + | Phone | Unavailable | + + + Support + + +---------+ + | Name | Relationship | Address | Phone | + + +---------+ + | Bronwyn Hernández | ECON | Unknown | | + + +---------+ + Care Team Providers + +------+ + | Care Paste Mixer Name | Role | Phone | + [...] [place] | | | | | | [address] | | | | | | [phone] | | | +--------+ + + + [...] [address] | | | | | | [place] [address] | | | | | | [phone] | | | | | | | | +--------+ + + + + | 06/13/ | Documentati | Cardiology | | | | 2017 | on Only | | | | +--------+ + + + + as of this encounter Visit Diagnoses Not on filein this encounter"
--- OUTSIDE RECORDS SUMMARY | ~2018-03-30 | XMS | Encounter Summary ---
Demographics + + + | Address | [address] | | | [place] [address] | + + + | Home Phone | | + + + | Preferred Language | Unknown | + + + | Marital Status | | + + + | Protestant Affiliation | Unknown | + + + | Race | Unknown | + + + | Ethnic Group | Unknown | + + + Author + + + | Author | [facility] | + + + | Organization | [facility] | + + + | Address | Unknown | + + + | Phone | Unavailable | + + + Support + + +---------+ + | Name | Relationship | Address | Phone | + + +---------+ + | Bronwyn Hernández | ECON | Unknown | | + + +---------+ + Care Team Providers + +------+ + | Care Blasting Entryman Name | Role | Phone | + [...] | | Internal | Diagnoses | | [facility] 4[facility] | | | | Medicine | 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 | | [address] | | | | | fibrillation | | [address] | | | | | ([facility]) AV | | [place], [place] | | | | | block, [facility] | | [address] Phone: | | | | | degree ([facility]) | | [phone] | | | | | Near | | Fax: | | | | | syncope | | [phone] | | | | | | | | +--------+--------+ + + + + Encounter Details +--------+ + + + + | Date | Type | Department | Care Team | Description | +--------+ + + + + | 03/09/ | Anesthesia | [facility] | Sebastián Reeves MD | | | 2018 | Event | [facility] | [address] | | | | | [facility] | [place] [address] | | | | | [place] [address] | [phone] | | | | | [phone] | | | +--------+ + + + [...] [address] | | | | | | [place] [address] | | | | | | [phone] | | | | | | | [...] | | | | | 03/09/18 at 7, Anesthesia | | PDT | | | [...]
--- OUTSIDE RECORDS SUMMARY | ~2018-03-30 | XMS | Clinical Summary ---
Demographics + + + | Address | [address] | | | [place] [address] | + + + | Home Phone | | + + + | Preferred Language | Unknown | + + + | Marital Status | | + + + | Mu-Ism Affiliation | Unknown | + + + | Race | Unknown | + + + | Ethnic Group | Unknown | + + + Author + + + | Author | [facility]enda [facility] [facility] | + + + | Organization | [facility] | + + + | Address | Unknown | + + + | Phone | Unavailable | + + + Support + + +---------+ + | Name | Relationship | Address | Phone | + + +---------+ + | Bronwyn Gonzalez | ECON | Unknown | | + + +---------+ + Care Team Providers + +------+ + | Care Hr Systems Analyst Name | Role | Phone | + [...] | previously scheduled for a pacemaker in [place] next week. He | | presented with diaphoresis and lightheadedness and complete heart | | block with a ventricular escape of 40 bpm. He was paced | | transcutaneously by paramedics and transported to the emergency | | room at [facility]. 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 | | | | | | ([facility]); Paroxysmal | | | | | | atrial fibrillation | | | | | | ([facility]) | +--------+ + + + + | 03/11/ | Telephone | | Jorge | | | 2017 | | | ASHLEY Padilla | | +--------+ + + + + | 03/09/ | Hospital | | Austin Vallecillo, | AV block, 3rd degree | | 2018 - | Encounter | | Oswaldo Blake MD | ([facility]) (Primary Dx); | | | | | | Near syncope; | | 03/10/ | | | | Paroxysmal atrial | | 2018 | | | | fibrillation ([facility]) | +--------+ + + + + +---+ [...] | | | Hospital: | | | [facility] | | | Scientific | | | OFFICE NURSE | | | defibrillat | | | or, on | | | February | | | , | | | 2018Hospita | | | l Course: | | | He was | | | [facility] | | | and | | | [place] | | | via | | | [...] | scheduled | | | have a OFFICE NURSE | | | device | | | placed in | | | [place] | | | Jean | | | [...] | lab and a | | | OFFICE NURSE | | | defibrillat | | | [...] | | Drug Store | | | [address] - | | | [place], | | | [place] - [address] | | | [address] | | | [address], | | | [place] | | | [place] | | | [address] | | | Phone: | | | [phone] | | | 1 | | | losartan 25 | | | MG | | | tablet | | | metoprolol | | | 25 MG 24 hr | | | tablet | | | spironolact | | | one 25 MG | | | tablet | | | Follow-Up:K | | | leeroy Samuels, | | | [id number] | | | [address] | | | [place] | | | [place] | | | [place] | | | [phone] | | | [phone] | | | [...] [address] | | | | | | [place] [address] | | | | | | [phone] | | | | | | | [...] | | 02/03/ | G158 | | Colorist Formulator-D-03/09/2018Implanted: | c | Subcla | SCIENTIFIC | | 2019 | /[id number] | | Qty: 1 on 03/09/2018 by [...] | | SCIENTIFIC | | 2019 | /[id number] | | Qty: 1 on 03/09/2018 by | Rhythm | | | | | 5 | | Oswaldo Samuels MD | | | | | | /[id number] | | | Manage | | | | | 7 | | | ment | | | | | | + +--------+--------+ +--------+--------+--------+ | Ingevity | Cardia | Heart | [place] | | 03/10/ | 7740 | | Mri-03/09/2018Implanted: Qty: | c | | SCIENTIFIC | | 2018 | /[id number] | | 1 on 03/09/2018 by Solomon | David | | | | | 1 | | MD Oswaldo | | | | | | /[id number] | | | Manage | | | | | 9 | | | ment | | | | | | + +--------+--------+ +--------+--------+--------+ | [employer] [place] | Cardia | Heart | [place] | | 12/24/ | 0292 | | Sg-03/09/2018Implanted: Qty: 1 | c | | SCIENTIFIC | | 2019 | /[id number] | | on 03/09/2018 by Oswaldo Samuels, | Rhythm | | | | | 3 | | MD | | | | | | /[id number] | | | Manage | | | [...] | [facility] | | | performed at [facility], [address] | | LABORATORY | | | [address], | | | | | [place] [address] | | | + + + + + + + | Specimen | + + | Blood | + + + + + + + | Performing | Address | City/State/Zipcode | Phone Number | | Organization | | | | + + + + + | [facility] | [address] | [place] [address] | [phone] | | LABORATORY | [address]vd[address] | | | + + + + + Basic metabolic panel (03/10/2018 4:41 AM) + + + + + | Component | Value | Ref Range | Performed At | + + + + + | SODIUM | 142 | 135 - 145 mmol/L | [facility] | | | | | LABORATORY | [...] 1.1 | 0.70 - 1.30 mg/dL | [facility] | | | | | LABORATORY | + + + + + | BUN/CREAT | 26 | | [facility] | | | | | LABORATORY | + + + + + | CALCIUM | 8.3 (L) | 8.5 - 10.5 mg/dL | [facility] | | | | | LABORATORY | + + + + + | EGFR | >60Comment: GFR <60: | >60 mL/min/1.73m2 | [facility] | | | CHRONIC KIDNEY DISEASE, | [...] | | | | | performed at [facility], [address] | | | | | [facility], | | | | | [place] [address] | | | + + + + + + + | Specimen | + + | Blood | + + + + + + + | Performing | Address | City/State/Zipcode | Phone Number | | Organization | | | | + + + + + | [facility] | [address] | [place] [address] | [phone] | | LABORATORY | [place]. | | [...] - 03/09/2018 11:21 PM PDT HUSSAIN FRAIRE [id number] years | | MaleXR CHEST 2 VIEW [...] + + + | [facility] | [address] [facility] [address] | [place] [address] | | + + + + + [...] At | + + + | | [facility] | | | RADIOLOGY | | PROCEDURE: OFFICE NURSE defibrillator implant. DATE: 03/09/2018. | | | HISTORY: This 88-year-old gentleman was referred urgently by | | | Rasheed in the emergency room at [facility] because of | | | symptomatic complete heart block associated with relative | | | hypotension and a heart rate in the 40 beats per minute range. He | | | presented today with diaphoresis and some lightheadedness and felt | | | poorly. He was therefore transferred to [facility] | | | Center for a OFFICE NURSE pacemaker. He has a baseline left bundle branch | | | block and severe LV systolic dysfunction with an ejection fraction of | | | 25-30 percent in the context of moderate MR and TR and moderate to | | | severe pulmonary hypertension. He has an ischemic cardiomyopathy | | | and has had 4 prior stents. A OFFICE NURSE device was planned for next week | | | in [place], [place], but because of his symptomatic complete [...] into the vessel. A | | | 9-Ivorian introducer was placed into the subclavian vein, and through | | | that, a AWAK, model 0292, serial number [id number] lead was | | | placed into the right ventricle and screwed into position towards the | | | apex. This was a single-coil lead. The lead was anchored with | | | two #1 Ethibond sutures. There was no diaphragmatic pacing at 10 | | | V. A 9-Ivorian Marquette sheath was placed into the subclavian vein | | | and down into the right atrium. A Marquette introducer was used to | | | [...] use, but | | | unfortunately the [employer] lead would not negotiate through | | | the corkscrew. A Quad, model 4671, serial number [id number] lead was | | | used. We tried and tried without success. The middle cardiac | | | vein looked like a good sized vessel but it had an extremely vertical | | | takeoff downward from the coronary sinus that made access almost | | | impossible. We tried the [employer] subselector and a | | | Marquette selector through that without success. A 0.014 [...] the coronary sinus was accessed with the [employer] | | | Scientific subselector. A guidewire [...] of 11.2 mV. A | | | 6-Ivorian introducer was placed into the subclavian vein, and through | | | that, a [employer], model 7740, serial number [id number] lead was | | | placed into [...] | | | were attached to a [employer] Dynagen OFFICE NURSE defibrillator (model | | | G158, serial number [id number]). That device was placed into the left [...] | | | | | | PROCEDURE: OFFICE NURSE defibrillator implant. | | | | DATE: 03/09/2018. | | | | HISTORY: This 88-year-old gentleman was referred urgently by Dr. Iqbal in | | the emergency room at [facility] because of symptomatic | | complete heart block associated with relative hypotension and a heart rate | | in the 40 beats per minute range. He presented today with diaphoresis and | | some lightheadedness and felt poorly. He was therefore transferred to | | [facility] for a OFFICE NURSE pacemaker. He has a baseline left | | bundle branch block and severe LV systolic dysfunction with an ejection | | fraction of 25-30 percent in the context of moderate MR and TR and moderate | | to severe pulmonary hypertension. He has an ischemic cardiomyopathy and | | has had 4 prior stents. A OFFICE NURSE device was planned for next week in | | [place], [place], but because of his symptomatic complete [...] guidewires were placed into the vessel. A 9-Ivorian introducer was placed | | into the subclavian vein, and through that, a [employer], model | | 0292, serial number [id number] lead was placed into the right ventricle and | | screwed into position towards the apex. This was a single-coil lead. The | | lead was anchored with two #1 Ethibond sutures. There was no diaphragmatic | | pacing at 10 V. | | | | A 9-Ivorian Yg sheath was placed into the subclavian vein and down into | | the right atrium. A Marquette introducer was used to access the coronary [...] | | to use, but unfortunately the [employer] lead would not negotiate | | through the corkscrew. A Quad, model 4671, serial number [id number] lead was | | used. We tried and tried without success. The middle cardiac vein looked | | like a good sized vessel but it had an extremely vertical takeoff downward | | from the coronary sinus that made access almost impossible. We tried the | | [employer] subselector and a Yg selector through [...] the coronary sinus was accessed with the [employer] | | subselector. A guidewire was [...] 11.2 mV. | | | | A 6-Ivorian introducer was placed into the subclavian vein, and through | | that, a [employer], model 7740, serial number [id number] lead was placed | | into the [...] V. All leads were attached to a [employer] Dynagen OFFICE NURSE | | defibrillator (model G158, serial number [id number]). That device was placed | | into [...] | + + + + + | [facility] | [address] | [place] [address] | | + + + + + MRSA by PCR (03/09/2018 7:26 PM) + + + + + | Component | Value | Ref Range | Performed At | + + + + + | SOURCE | NARES(NOSE) | | [facility] | + + + + + | MRSA PCR | NEGATIVEComment: Testing | NEGATIVE | [facility] | | | performed at [facility] | | | | | [facility];[place], [place] | | | | | [address] | | | + + + + + + + | Specimen | + + | Nasopharyngeal - | | Nares(Nose) | + + + + + + + | Performing | Address | City/State/Zipcode | Phone Number | | Organization | | | | + + + + + | [facility] | [address] | [place] [address] | | + + + + + [...] | + + + + + | [facility] | [address] | [place] [address] | | + + + + + [...] +------+-------+ + | MEDICARE | MEDICA | [id number] | | | [address] | | | RE | | | | [place] [address] | | | IP-OP | | | | | + +--------+ +------+-------+ + | UNITED HEALTHCARE | UNITED | [id number] | | | | | | | [...] Self | [birth year] | Home: | [address] | | | al/Fam | | 1930 | [phone] | [place] [address] | | | lokesh | | | [phone] | | + +--------+ +--------+ + +
--- OUTSIDE RECORDS SUMMARY | ~2018-03-30 | XMS | Encounter Summary ---
Demographics + + + | Address | [address] | | | [place] [address] | + + + | Home Phone | | + + + | Preferred Language | Unknown | + + + | Marital Status | | + + + | Lutheran Affiliation | Unknown | + + + | Race | Unknown | + + + | Ethnic Group | Unknown | + + + Author + + + | Author | [facility] | + + + | Organization | [facility] | + + + | Address | Unknown | + + + | Phone | Unavailable | + + + Support + + +---------+ + | Name | Relationship | Address | Phone | + + +---------+ + | Bronwyn Hernández | ECON | Unknown | | + + +---------+ + Care Team Providers + +------+ + | Care Switch House Operator Name | Role | Phone | [...] [place] | | | | | | [address] | | | | | | [phone] | | | +--------+ + + + [...] [address] | | | | | | [place] [address] | | | | | | [phone] | | | | | | | | +--------+ + + + + | 06/13/ | Documentati | Cardiology | | | | 2017 | on Only | | | | +--------+ + + + + as of this encounter Visit Diagnoses Not on filein this encounter"
--- OUTSIDE RECORDS SUMMARY | ~2018-03-30 | XMS | Encounter Summary ---
Demographics + + + | Address | [address] | | | [place] [address] | + + + | Home Phone | | + + + | Preferred Language | Unknown | + + + | Marital Status | | + + + | Uatsdin Affiliation | Unknown | + + + | Race | Unknown | + + + | Ethnic Group | Unknown | + + + Author + + + | Author | Glenda Shahiya [facility] | + + + | Organization | [facility] | + + + | Address | Unknown | + + + | Phone | Unavailable | + + + Support + + +---------+ + | Name | Relationship | Address | Phone | + + +---------+ + | Bronwyn Hernández | ECON | Unknown | | + + +---------+ + Care Team Providers + +------+ + | Care Water Quality Control Engineer Name | Role | Phone | [...] | | | | | | [place] | | | | | | [address] | | | | | | [phone] | | | +--------+ + + + [...] [address] | | | | | | [place] [address] | | | | | | [phone] | | | | | | | | +--------+ + + + + | 06/13/ | Documentati | Cardiology | | | | 2017 | on Only | | | | +--------+ + + + + as of this encounter Visit Diagnoses Not on filein this encounter"
--- OUTSIDE RECORDS SUMMARY | ~2018-03-30 | XMS | Encounter Summary ---
Demographics + + + | Address | [address] | | | [place] [address] | + + + | Home Phone | | + + + | Preferred Language | Unknown | + + + | Marital Status | | + + + | Gnosticist Affiliation | Unknown | + + + | Race | Unknown | + + + | Ethnic Group | Unknown | + + + Author + + + | Author | Glenda [employer] [facility] | + + + | Organization | [facility] | + + + | Address | Unknown | + + + | Phone | Unavailable | + + + Support + + +---------+ + | Name | Relationship | Address | Phone | + + +---------+ + | Bronwyn Hernández | ECON | Unknown | | + + +---------+ + Care Team Providers + +------+ + | Care Integrated Campaign Manager Name | Role | Phone | [...] | | Internal | Diagnoses | | [facility] 4th | | | | Medicine | 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 | | [address] | | | | | fibrillation | | [address] | | | | | ([facility]) AV | | [place], [place] | | | | | block, [facility] | | [address] Phone: | | | | | degree ([facility]) | | [phone] | | | | | Near | | Fax: | | | | | syncope | | [phone] | | | | | | | | +--------+--------+ + + + + Encounter Details +--------+ + + + + | Date | Type | Department | Care Team | Description | +--------+ + + + + | 03/09/ | Anesthesia | [facility] | Sebastián Reeves MD | | | 2018 | Event | [facility] | [address] | | | | | [facility] | [place] [address] | | | | | [place] [address] | [phone] | | | | | [phone] | | | +--------+ + + + [...] [address] | | | | | | [place] [address] | | | | | | [phone] | | | | | | | [...]
--- OUTSIDE RECORDS SUMMARY | ~2018-03-30 | XMS | Encounter Summary ---
Demographics + + + | Address | [address] | | | [place] [address] | + + + | Home Phone | | + + + | Preferred Language | Unknown | + + + | Marital Status | | + + + | Moravian Affiliation | Unknown | + + + | Race | Unknown | + + + | Ethnic Group | Unknown | + + + Author + + + | Author | Glenda [facility] | + + + | [...] Team Providers + +------+ + | Care Bike Assembler Name | Role | Phone | + +------+ + PCP | Unavailable | + +------+ + Encounter Details +--------+ + + + + | Date | Type | Department | Care Team | Description | +--------+ + + + + | 03/09/ | Procedure | [facility] | | | | 2018 | [address] | | | | | | [facility] | | | | | | [address] [facility] | | | | | | [place] [address] | | | | | | [phone] | | | +--------+ + + + [...] | | | | | [place] [address] | | | | | | [phone] | | | | | | | | +--------+ + + + + | 06/13/ | Documentati | Cardiology | | | | 2017 | on Only | | | | +--------+ + + + + as of this encounter Visit Diagnoses Not on filein this encounter"
--- OUTSIDE RECORDS SUMMARY | ~2018-03-30 | XMS | Encounter Summary ---
Demographics + + + | Address | [address] | | | [place] [address] | + + + | Home Phone | | + + + | Preferred Language | Unknown | + + + | Marital Status | | + + + | Hoahaoism Affiliation | Unknown | + + + | Race | Unknown | + + + | Ethnic Group | Unknown | + + + Author + + + | Author | Glenda [employer] [facility] | + + + | Organization | [facility] | + + + | Address | Unknown | + + + | Phone | Unavailable | + + + Support + + +---------+ + | Name | Relationship | Address | Phone | + + +---------+ + | Bronwyn Hernández | ECON | Unknown | | + + +---------+ + Care Team Providers + +------+ + | Care Mixer Dry Food Products Name | Role | Phone | + +------+ + PCP | Unavailable | + +------+ + Encounter Details +--------+ + + + + | Date | Type | Department | Care Team | Description | +--------+ + + + + | 03/09/ | Procedure | [facility] | | | | 2018 | [address] | | | | | | [facility] | | | | | | [address] [facility] | | | | | | [place] [address] | | | | | | [phone] | | | +--------+ + + + [...] | | | | | [place] [address] | | | | | | [phone] | | | | | | | | +--------+ + + + + | 06/13/ | Documentati | Cardiology | | | | 2017 | on Only | | | | +--------+ + + + + as of this encounter Visit Diagnoses Not on filein this encounter"
[~2018-03-30 13:26] MED LIST changes: +ALDACTONE25 MG PO; +PROAIR HFA8.5 GM INH
--- OUTSIDE RECORDS SUMMARY | 2018-03-30 13:30 | XMS ---
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 E.Xu VISIT COUNT (12 MO.) [address] TOTAL 8 NOTE: Visits indicate total known visits. ED/C VISIT TRACKING (12 MO.) 03/30/2018 13:26 [facility] [place] TYPE: Emergency COMPLAINT: - CHEST PAIN 03/23/2018 12:46 [facility] [place] TYPE: Emergency COMPLAINT: - TIREDNESS 03/11/2018 09:59 [facility] [place] TYPE: Emergency COMPLAINT: - POST OP PROBLEMS DIAGNOSES: - Old myocardial infarction - Encounter for surgical aftercare following surgery on the circulatory system - Heart failure, unspecified - Other longterm (current) drug therapy - Personal history of nicotine dependence - Presence of cardiac pacemaker [facility] DIAGNOSES: - Syncope and collapse - Atrioventricular block, complete 03/09/2018 14:44 [facility] [place] TYPE: Emergency COMPLAINT: - HEART BLOCK DIAGNOSES: - Old myocardial infarction - Heart failure, unspecified - Syncope and collapse - Unspecified atrial fibrillation - Chronic obstructive pulmonary disease, unspecified - Other longwall machine operator helper (current) drug therapy - Atrioventricular block, complete - Personal history of nicotine dependence 11/01/2017 06:13 [facility] [place] TYPE: Emergency COMPLAINT: - NECK PAIN/NO INJURY DIAGNOSES: - Personal history of nicotine dependence - Chronic obstructive pulmonary disease, unspecified - Other longterm (current) drug therapy - Old myocardial infarction - Cervicalgia - Zoster without complications - Spondylosis, unspecified - Occlusion and stenosis of unspecified carotid artery - Pain in right arm 07/30/2017 08:17 [facility] [place] TYPE: Emergency COMPLAINT: - DIFFICULTY BREATHING 06/21/2017 13:43 [facility] TYPE: Emergency COMPLAINT: - SOB DIAGNOSES: - Chronic obstructive pulmonary disease, unspecified - Shortness of breath - OTHER SPECIFIED POSTPROCEDURAL STATES - Other longterm (current) drug therapy - Other specified postprocedural states - Nicotine dependence, unspecified, uncomplicated - 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
--- NOTE | 2018-03-30 19:32 | EKG ---
[facility] [address] [place], [place] [address] Signed AV dual-paced rhythm Biventricular pacemaker detected Abnormal ECG When compared with ECG of 09-MAR-2018 14:51, Previous ECG has undetermined rhythm, needs review Confirmed by NATHALIA ROSA DO ([id number]) on 03/30/2018 7:32:29 PM Electronically Signed By: NATHALIA ROSA DO 03/30/181931 PATIENT NAME: HUSSAIN GONZALEZ Electrocardiogram DATE OF : [birth year] PHYSICIAN: NATHALIA ROSA DO REPORT #: [id number] REPORT IS CONFIDENTIAL AND NOT TO BE RELEASED WITHOUT AUTHORIZATION
== END 2018-03-30 15:38 | disposition home or self-care (01) ==
LOC: ED 13:26
DX: R07.9 Chest pain, unspecified (principal); I25.2 Old myocardial infarction; I48.91 Unspecified atrial fibrillation; I50.9 Heart failure, unspecified; J44.9 Chronic obstructive pulmonary disease, unspecified; Z87.891 Personal history of nicotine dependence; Z79.899 Other long term (current) drug therapy
CPT/HCPCS: 71045; 80053; 83735; 83880; 84484; 85025; 93005; 93010; 99285

== ENCOUNTER 2018-07-22 12:35 | Emergency (ER) | payer MEDICARE ==
[~2018-07-22] VITALS: Ht 170.2 cm; Wt 67.2 kg
--- OUTSIDE RECORDS SUMMARY | 2018-07-22 12:38 | XMS ---
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 Care History Medical/Surgical 06/07/2018 [facility] - Patient is currently established with [facility]. If patient is seen in the ED during business hours. Please contact CHWs at [facility]. Care Recommendation: This patient has had 5 or more Emergency Department visits in the last 12 months.\T\nbsp; Patient requires education on the scope and purpose of the ED as an acute care provider not a Primary Care Provider and should not be utilized for chronic conditions.\T\nbsp; These are guidelines and the provider should exercise clinical judgment when providing care. E.D. VISIT COUNT (12 MO.) 1 [facility] 9 [facility]DRA [place] TOTAL 10 NOTE: Visits indicate total known visits. ED/UCC VISIT TRACKING (12 MO.) 07/22/2018 12:35 [place] TYPE: Emergency COMPLAINT: - CHEST PAIN 06/16/2018 11:22 [place] [place] TYPE: Emergency COMPLAINT: - SOB, DIZZINESS, LOW BLOOD PRESSURE DIAGNOSES: - Unspecified atrial fibrillation - Other long-term (current) drug therapy - Hypotension, unspecified - Atherosclerotic heart disease of [place] coronary artery without angina pectoris - intermission coordinator (current) use of inhaled steroids - Personal history of nicotine dependence - Heart failure, unspecified - Dizziness and giddiness - Chronic obstructive pulmonary disease, unspecified - Presence of automatic (implantable) cardiac defibrillator - Old myocardial infarction 06/06/2018 12:33 [place] [place] TYPE: Emergency COMPLAINT: - CHEST PAIN DIAGNOSES: - Other specified abnormal findings of blood chemistry - Unspecified atrial fibrillation - Chronic obstructive pulmonary disease, unspecified - Acute ischemic heart disease, unspecified - Chest pain, unspecified - Other intermediate manager (current) drug therapy - Old myocardial infarction - Heart failure, unspecified 03/30/2018 13:26 [facility] [place] TYPE: Emergency COMPLAINT: - CHEST PAIN DIAGNOSES: - Personal history of nicotine dependence - Chest pain, unspecified - Old myocardial infarction - Chronic obstructive pulmonary disease, unspecified - Heart failure, unspecified - Unspecified atrial fibrillation - Other long-term (current) drug therapy 03/23/2018 12:46 [place] [place] TYPE: Emergency COMPLAINT: - TIREDNESS 03/11/2018 09:[address] [facility] [address] [facility] [place] TYPE: Emergency COMPLAINT: - POST OP PROBLEMS DIAGNOSES: - Old myocardial infarction - Encounter for surgical aftercare following surgery on the circulatory system - Heart failure, unspecified - Other intermediate manager (current) drug therapy - Personal history of nicotine dependence - Presence of cardiac pacemaker 03/09/2018 18:46 [facility] TYPE: Emergency DIAGNOSES: - Syncope and collapse - Atrioventricular block, complete 03/09/2018 14:[address] [facility] [address] [place] TYPE: Emergency COMPLAINT: - HEART BLOCK DIAGNOSES: - Old myocardial infarction - Heart failure, unspecified - Syncope and collapse - Unspecified atrial fibrillation - Chronic obstructive pulmonary disease, unspecified - Other intermediate manager (current) drug therapy - Atrioventricular block, complete - Personal history of nicotine dependence 11/01/2017 06:13 [place] [place] TYPE: Emergency COMPLAINT: - NECK PAIN/NO INJURY DIAGNOSES: - Personal history of nicotine dependence - Chronic obstructive pulmonary disease, unspecified - Other long-term (current) drug therapy - Old myocardial infarction - Cervicalgia - Zoster without complications - Spondylosis, unspecified - Occlusion and stenosis of unspecified carotid artery - Pain in right arm 07/30/2017 08:17 [place] [place] TYPE: Emergency COMPLAINT: - DIFFICULTY BREATHING INPATIENT VISIT TRACKING (12 MO.) 03/23/2018 12:47 [facility] [place] TYPE: Medical Surgical COMPLAINT: - ACUTE KIDNEY INJURY DIAGNOSES: - [facility] (current) use of inhaled steroids - Personal history of nicotine dependence - Chronic obstructive pulmonary disease, unspecified - Orthostatic hypotension - Acute kidney failure, unspecified - Other long-term (current) drug therapy - Paroxysmal atrial fibrillation - Presence of coronary angioplasty implant and graft - Encounter for immunization - Old myocardial infarction - Dehydration - Atherosclerotic heart disease of [place] coronary artery without angina pectoris - Presence of automatic (implantable) cardiac defibrillator - intermission coordinator (current) use of anticoagulants - Hyperlipidemia, unspecified - Chronic combined systolic (congestive) and diastolic (congestive) heart failure - Gout, unspecified 03/09/2018 18:46 [facility] [place] TYPE: Cardiology DIAGNOSES: - Paroxysmal atrial fibrillation - Atrioventricular block, complete - Syncope and collapse 07/30/2017 12:28 [place] TYPE: Medical Surgical COMPLAINT: - CHF DIAGNOSES: - Acute and chronic respiratory failure with hypoxia - Pulmonary hypertension, unspecified - Nicotine dependence, cigarettes, uncomplicated - Old myocardial infarction - Acute on chronic systolic (congestive) heart failure - Paroxysmal atrial fibrillation - Rheumatic disorders of both mitral and tricuspid valves - Arthrodesis status - Acute respiratory failure with hypoxia - Atherosclerotic heart disease of [place] tribes coronary artery without angina pectoris - Hyperlipidemia, unspecified - Presence of coronary angioplasty implant and graft - Hypertensive heart disease with heart failure - Chronic obstructive pulmonary disease with (acute) exacerbation [email or web address]
[2018-07-22] MEDS ORDERED: COZAAR25 MG PO (12:46)
--- NOTE | 2018-07-22 20:04 | EKG ---
[facility] [address] [place] [address] Signed Ventricular-paced rhythm with occasional AV dual-paced complexes Biventricular pacemaker detected Abnormal ECG When compared with ECG of 16-JUN-2018 11:33, Vent. rate has decreased BY 2 BPM Confirmed by KEVEN LOCO MD ([id number]) on 07/22/2018 8:04:24 PM Electronically Signed By: KEVEN LOCO MD 07/22/182003 PATIENT NAME: HUSSAIN GONZALEZ Electrocardiogram DATE OF : [birth year] PHYSICIAN: KEVEN LOCO MD REPORT #: [id number] REPORT IS CONFIDENTIAL AND NOT TO BE RELEASED WITHOUT AUTHORIZATION
== END 2018-07-22 14:50 | disposition home or self-care (01) ==
LOC: ED 12:35
DX: R53.83 Other fatigue (principal); I25.2 Old myocardial infarction; I48.91 Unspecified atrial fibrillation; J44.9 Chronic obstructive pulmonary disease, unspecified; I50.9 Heart failure, unspecified; Z87.891 Personal history of nicotine dependence; Z95.0 Presence of cardiac pacemaker; Z95.5 Presence of coronary angioplasty implant and graft; Z88.1 Allergy status to other antibiotic agents; Z79.899 Other long term (current) drug therapy
CPT/HCPCS: 71045; 80053; 84484; 85025; 85610; 85730; 93005; 93010; 99285-25

== ENCOUNTER 2018-07-29 20:48 | Emergency (ER) | payer MEDICARE ==
[~2018-07-29] VITALS: Ht 170.2 cm; Wt 67.2 kg
--- OUTSIDE RECORDS SUMMARY | 2018-07-29 20:50 | XMS ---
PreManage Notification: HUSSAIN GONZALEZ Security Mother Superior Events No recent Security Events currently on file CRITERIA MET - 6 ED Visits in 6 Months - [facility] - Has Care Guidelines - [facility] - 2 Visits in 30 Days CARE PROVIDERS LEE FLOYD Student in an Organized Health Care 03/31/2018-Current Education/Training Program PHONE: [phone] DANIEL PABLO Primary Care Current PHONE: Unknown Iqra has no Care Guidelines for this patient. Care History Medical/Surgical 06/07/2018 [facility] - Patient is currently established with [facility]. If patient is seen in the ED during business hours. Please contact CHWs at [facility]. Care Recommendation: This patient has had 5 [...] care. E.D. VISIT COUNT (12 MO.) 1 [facility] 10 SANDRA [place] TOTAL 11 NOTE: Visits indicate total known visits. ED/UCC VISIT TRACKING (12 MO.) 07/29/2018 20:48 [place] TYPE: Emergency COMPLAINT: - CHEST PAIN 07/22/2018 12:[address] [facility] [place] TYPE: Emergency COMPLAINT: - CHEST PAIN DIAGNOSES: - Heart failure, unspecified - Presence of coronary angioplasty implant and graft - Weakness - Chronic obstructive pulmonary disease, unspecified - Old myocardial infarction - Other fatigue - Other fci (current) drug therapy - Presence of cardiac pacemaker - Allergy status to other antibiotic agents status - Personal history of nicotine dependence - Unspecified atrial fibrillation 06/16/2018 11:[address] [facility] [address] [place] TYPE: Emergency COMPLAINT: - SOB, DIZZINESS, LOW BLOOD PRESSURE DIAGNOSES: - Unspecified atrial fibrillation - Other termite control technician (current) drug therapy - Hypotension, unspecified - Atherosclerotic heart disease of [place] coronary artery without angina pectoris - retirement (current) use of inhaled steroids - Personal history of nicotine dependence - Heart failure, unspecified - Dizziness and giddiness - Chronic obstructive pulmonary disease, unspecified - Presence of automatic (implantable) cardiac defibrillator - Old myocardial infarction 06/06/2018 12:[address] [facility] [address] [place] [place] TYPE: Emergency COMPLAINT: - CHEST PAIN DIAGNOSES: - Other specified abnormal findings of blood chemistry - Unspecified atrial fibrillation - Chronic obstructive pulmonary disease, unspecified - Acute ischemic heart disease, unspecified - Chest pain, unspecified - Other fci (current) drug therapy - Old myocardial infarction - Heart failure, unspecified 03/30/2018 13:26 [facility] [place] TYPE: Emergency COMPLAINT: - CHEST PAIN DIAGNOSES: - Personal history of nicotine dependence - Chest pain, unspecified - Old myocardial infarction - Chronic obstructive pulmonary disease, unspecified - Heart failure, unspecified - Unspecified atrial fibrillation - Other fci (current) drug therapy 03/23/2018 12:46 [facility] [place] TYPE: Emergency COMPLAINT: - TIREDNESS 03/11/2018 09:59 [facility] [place] TYPE: Emergency COMPLAINT: - POST OP PROBLEMS DIAGNOSES: - Old myocardial infarction - Encounter for surgical aftercare following surgery on the circulatory system - Heart failure, unspecified - Other termite control technician (current) drug therapy - Personal history of nicotine dependence - Presence of cardiac pacemaker 03/09/2018 18:46 [facility] TYPE: Emergency DIAGNOSES: - Syncope and collapse - Atrioventricular block, complete 03/09/2018 14:44 [place] [place] TYPE: Emergency COMPLAINT: - HEART BLOCK DIAGNOSES: - Old myocardial infarction - Heart failure, unspecified - Syncope and collapse - Unspecified atrial fibrillation - Chronic obstructive pulmonary disease, unspecified - Other termite control technician (current) drug therapy - Atrioventricular block, complete [...] VISIT TRACKING (12 MO.) 03/23/2018 12:47 [facility] [place] TYPE: Medical Surgical COMPLAINT: - ACUTE KIDNEY INJURY DIAGNOSES: - termite control technician (current) use of inhaled steroids - Personal history of nicotine dependence - Chronic obstructive pulmonary disease, unspecified - Orthostatic hypotension - Acute kidney failure, unspecified - Other termite control technician (current) drug therapy - Paroxysmal atrial fibrillation - Presence of coronary angioplasty implant and graft - Encounter for immunization - Old myocardial infarction - Dehydration - Atherosclerotic heart disease of [place] coronary artery without angina pectoris - Presence of automatic (implantable) cardiac defibrillator - retirement (current) use of anticoagulants - Hyperlipidemia, unspecified - Chronic combined systolic (congestive) and diastolic (congestive) heart failure - Gout, unspecified 03/09/2018 18:46 [facility] TYPE: Cardiology DIAGNOSES: - Paroxysmal atrial fibrillation [...] with hypoxia - Atherosclerotic heart disease of [place] coronary artery without angina pectoris - Hyperlipidemia, unspecified - Presence of coronary angioplasty implant and graft - Hypertensive heart disease with heart failure - Chronic obstructive pulmonary disease with (acute) exacerbation [email or web address]
--- NOTE | 2018-07-30 13:15 | EKG ---
[facility] [address] [facility] [place] [address] Signed Suspect unspecified pacemaker failure Ventricular-paced rhythm with occasional premature ventricular complexes Abnormal ECG When compared with ECG of 22-JUL-2018 12:38, premature ventricular complexes are now present Vent. rate has increased BY 13 BPM Confirmed by NATHALIA ROSA DO ([id number]) on 07/30/2018 1:15:34 PM Electronically Signed By: NATHALIA ROSA DO 07/30/18 1315 PATIENT NAME: HUSSAIN GONZALEZ Electrocardiogram DATE OF : [birth year] PHYSICIAN: NATHALIA ROSA DO REPORT #: [id number] REPORT IS CONFIDENTIAL AND NOT TO BE RELEASED WITHOUT AUTHORIZATION
== END 2018-07-29 23:40 | disposition short-term general hospital (02) ==
LOC: ED 20:48
DX: R09.02 Hypoxemia (principal); R19.7 Diarrhea, unspecified; R53.1 Weakness; I25.2 Old myocardial infarction; I48.91 Unspecified atrial fibrillation; I50.9 Heart failure, unspecified; J44.9 Chronic obstructive pulmonary disease, unspecified; Z79.899 Other long term (current) drug therapy; Z87.891 Personal history of nicotine dependence
CPT/HCPCS: 71045; 80053; 83605; 84484; 85025; 85610; 85730; 87040; 93005; 93010; 96374; 99285-25; J3370; J7060

== ENCOUNTER 2018-11-22 00:03 | Emergency (ER) | payer MEDICARE ==
[~2018-11-22] VITALS: Ht 170.2 cm; Wt 65.4 kg
--- OUTSIDE RECORDS SUMMARY | 2018-11-22 00:06 | XMS ---
PreManage Notification: HUSSAIN GONZALEZ Security Past Due Accounts Clerk Events No recent Security Events currently on file CRITERIA MET - 6 ED Visits in 6 Months - [facility] - Has Care Guidelines CARE PROVIDERS LEE FLOYD Student in an Organized Health Care 03/31/2018-Current Education/Training Program PHONE: [phone] DANIEL PABLO Primary Care Current PHONE: Unknown Iqra has no Care Guidelines for this patient. Care History Medical/Surgical 06/07/2018 [facility] - Patient is currently established with [facility]. If patient is seen in the ED during business hours. Please contact CHWs at [facility]. Care Recommendation: This patient has had 5 [...] providing care. E.D. VISIT COUNT (12 MO.) 2 [facility] 9 SANDRA [place] TOTAL 11 NOTE: Visits indicate total known visits. ED/UCC VISIT TRACKING (12 MO.) 11/22/2018 00:03 [place] TYPE: Emergency COMPLAINT: - FALL 07/30/2018 00:58 [facility] DIAGNOSES: - Encounter for follow-up examination after completed treatment for conditions other than malignant neoplasm - Weakness - Diarrhea, unspecified - Post-Op Infection 07/29/2018 20:48 [facility] [place] TYPE: Emergency COMPLAINT: - CHEST PAIN DIAGNOSES: - Personal history of nicotine dependence - Hypoxemia - Chest pain, unspecified - Diarrhea, unspecified - Other long chain beamer (current) drug therapy - Unspecified atrial fibrillation - Chronic obstructive pulmonary disease, unspecified - Weakness - Heart failure, unspecified - Old myocardial infarction 07/22/2018 12:35 [facility] [place] TYPE: Emergency COMPLAINT: - CHEST PAIN DIAGNOSES: - Heart failure, unspecified - Presence of coronary angioplasty implant and graft - Weakness - Chronic obstructive pulmonary disease, unspecified - Old myocardial infarction - Other fatigue - Other long chain beamer (current) drug therapy - Presence of cardiac pacemaker - Allergy status to other antibiotic agents status - Personal history of nicotine dependence - Unspecified atrial fibrillation 06/16/2018 11:22 [place] [place] TYPE: Emergency COMPLAINT: - SOB, DIZZINESS, LOW BLOOD PRESSURE DIAGNOSES: - Unspecified atrial fibrillation - Other long chain beamer (current) drug therapy - Hypotension, unspecified - Atherosclerotic heart disease of knik coronary artery without angina pectoris - penitentiary (current) use of inhaled steroids - Personal [...] unspecified - Chest pain, unspecified - Other long chain beamer (current) drug therapy - Old myocardial infarction - Heart failure, unspecified 03/30/2018 13:26 [facility] [place] TYPE: Emergency COMPLAINT: - CHEST PAIN DIAGNOSES: - Personal history of nicotine dependence - Chest pain, unspecified - Old myocardial infarction - Chronic obstructive pulmonary disease, unspecified - Heart failure, unspecified - Unspecified atrial fibrillation - Other long chain beamer (current) drug therapy 03/23/2018 12:46 [facility] [place] TYPE: Emergency COMPLAINT: - TIREDNESS 03/11/2018 09:59 [facility] [place] TYPE: Emergency COMPLAINT: - POST OP PROBLEMS DIAGNOSES: - Old myocardial infarction - Encounter for surgical aftercare following surgery on the circulatory system - Heart failure, unspecified - Other long chain beamer (current) drug therapy - Personal history of nicotine dependence - Presence of cardiac pacemaker 03/09/2018 18:46 [facility] TYPE: Emergency DIAGNOSES: - Syncope and collapse - Atrioventricular block, complete 03/09/2018 14:[address] [facility] [address] [place] TYPE: Emergency COMPLAINT: - HEART BLOCK DIAGNOSES: - Old myocardial infarction - Heart failure, unspecified - Syncope and collapse - Unspecified atrial fibrillation - Chronic obstructive pulmonary disease, unspecified - Other long chain beamer (current) drug therapy - Atrioventricular block, complete - Personal history of nicotine dependence INPATIENT VISIT TRACKING (12 MO.) 03/23/2018 12:47 [place] [place] TYPE: Medical Surgical COMPLAINT: - ACUTE KIDNEY INJURY DIAGNOSES: - penitentiary (current) use of inhaled steroids - Personal history of nicotine dependence - Chronic obstructive pulmonary disease, unspecified - Orthostatic hypotension - Acute kidney failure, unspecified - Other long chain beamer (current) drug therapy - Paroxysmal atrial fibrillation - Presence of coronary angioplasty implant and graft - Encounter for immunization - Old myocardial infarction - Dehydration - Atherosclerotic heart disease of knik coronary artery without angina pectoris - Presence of automatic (implantable) cardiac defibrillator - penitentiary (current) use of anticoagulants - Hyperlipidemia, unspecified - Chronic combined systolic (congestive) and diastolic (congestive) heart failure - Gout, unspecified 03/09/2018 18:[address] [facility] TYPE: Cardiology DIAGNOSES: - Paroxysmal atrial fibrillation - Atrioventricular block, complete - Syncope and collapse [email or web address]
[2018-11-22] MEDS ORDERED: PRESERVISION A1 EACH PO (01:18)
[2018-11-22] MEDS ORDERED: FUROSEMIDE40 MG PO (01:18)
[2018-11-22] MEDS ORDERED: METOPROLOL SUCC25 MG PO (01:19)
[2018-11-22] MEDS ORDERED: EPLERENONE50 MG PO (01:20)
--- NOTE | 2018-11-22 19:15 | EKG ---
[facility] [address] [place] [address] Signed AV dual-paced rhythm Abnormal ECG When compared with ECG of 29-JUL-2018 20:54, premature ventricular complexes are no longer present Vent. rate has decreased BY 9 BPM Confirmed by AMIRA HUTCHINSON MD ([id number]) on 11/22/2018 7:14:55 PM Electronically Signed By: AMIRA HUTCHINSON MD 11/22/18 1915 PATIENT NAME: HUSSAIN GONZALEZ Electrocardiogram DATE OF : [birth year] PHYSICIAN: AMIRA HUTCHINSON MD REPORT #: [id number] REPORT IS CONFIDENTIAL AND NOT TO BE RELEASED WITHOUT AUTHORIZATION
== END 2018-11-22 03:39 | disposition home or self-care (01) ==
LOC: ED 00:03
DX: R55 Syncope and collapse (principal); S00.12XA Contusion of left eyelid and periocular area, initial encounter; J44.9 Chronic obstructive pulmonary disease, unspecified; I25.2 Old myocardial infarction; I50.9 Heart failure, unspecified; Z87.891 Personal history of nicotine dependence; Z95.0 Presence of cardiac pacemaker; Z95.5 Presence of coronary angioplasty implant and graft; Z88.1 Allergy status to other antibiotic agents; Z79.899 Other long term (current) drug therapy; W01.198A Fall on same level from slipping, tripping and stumbling with subsequent striking against other object, initial encounter
CPT/HCPCS: 70450; 71045; 80053; 81001; 83735; 84484; 85025; 93005; 93010; 96360; 96361; 99285-25; J7030

== ENCOUNTER 2018-11-29 15:00 | Emergency (ER) | payer MEDICARE ==
[~2018-11-29] VITALS: Ht 170.2 cm; Wt 65.9 kg
[~2018-11-29 15:00] MED LIST changes: +EPLERENONE50 MG PO
--- OUTSIDE RECORDS SUMMARY | 2018-11-29 15:02 | XMS ---
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 Care History Medical/Surgical 06/07/2018 [facility] - Patient is currently established with [facility]. If patient is seen in the ED during business hours. Please contact CHWs at [facility]. Care Recommendation: This patient has had 5 [...] care. E.D. VISIT COUNT (12 MO.) 2 [facility] 10 [facility] Santana TOTAL 12 NOTE: Visits indicate total known visits. ED/UCC VISIT TRACKING (12 MO.) 11/29/2018 15:00 [facility] TYPE: Emergency COMPLAINT: - FALL 11/22/2018 00:03 [facility] TYPE: Emergency COMPLAINT: - FALL DIAGNOSES: - Other lobsterman (current) drug therapy - Syncope and collapse - Chronic obstructive pulmonary disease, unspecified - Heart failure, unspecified - Allergy status to other antibiotic agents status - Fall on same level from slipping, tripping and stumbling with subsequent striking against other object, initial encounter - Personal history of nicotine dependence - Presence of coronary angioplasty implant and graft - Presence of cardiac pacemaker - Old myocardial infarction - Contusion of left eyelid and periocular area, initial encounter 07/30/2018 00:58 [facility] TYPE: Emergency DIAGNOSES: - Encounter for follow-up examination after completed treatment for conditions other than malignant neoplasm - Weakness - Diarrhea, unspecified - Post-Op Infection 07/29/2018 20:48 [facility] TYPE: Emergency COMPLAINT: - CHEST PAIN DIAGNOSES: - Personal history of nicotine dependence - Hypoxemia - Chest pain, unspecified - Diarrhea, unspecified - Other assisted (current) drug therapy - Unspecified atrial fibrillation - Chronic obstructive pulmonary disease, unspecified - Weakness - Heart failure, unspecified - Old myocardial infarction 07/22/2018 12:35 [facility] TYPE: Emergency COMPLAINT: - CHEST PAIN DIAGNOSES: - Heart failure, unspecified - Presence of coronary angioplasty implant and graft - Weakness - Chronic obstructive pulmonary disease, unspecified - Old myocardial infarction - Other fatigue - Other assisted (current) drug therapy - Presence of cardiac pacemaker - Allergy status to other antibiotic agents status - Personal history of nicotine dependence - Unspecified atrial fibrillation 06/16/2018 11:22 [facility] TYPE: Emergency COMPLAINT: - SOB, DIZZINESS, LOW BLOOD PRESSURE DIAGNOSES: - Unspecified atrial fibrillation - Other lobsterman (current) drug therapy - Hypotension, unspecified - Atherosclerotic heart disease of [place] coronary artery without angina pectoris - shelter (current) use of inhaled steroids - Personal history of nicotine dependence - Heart failure, unspecified - Dizziness and giddiness - Chronic obstructive pulmonary disease, unspecified - Presence of automatic (implantable) cardiac defibrillator - Old myocardial infarction 06/06/2018 12:33 [facility] TYPE: Emergency COMPLAINT: - CHEST PAIN DIAGNOSES: - Other specified abnormal findings of blood chemistry - Unspecified atrial fibrillation - Chronic obstructive pulmonary disease, unspecified - Acute ischemic heart disease, unspecified - Chest pain, unspecified - Other lobsterman (current) drug therapy - Old myocardial infarction - Heart failure, unspecified 03/30/2018 13:26 [facility] TYPE: Emergency COMPLAINT: - CHEST PAIN DIAGNOSES: - Personal history of nicotine dependence - Chest pain, unspecified - Old myocardial infarction - Chronic obstructive pulmonary disease, unspecified - Heart failure, unspecified - Unspecified atrial fibrillation - Other assisted (current) drug therapy 03/23/2018 12:46 [facility] TYPE: Emergency COMPLAINT: - TIREDNESS 03/11/2018 09:59 [facility] TYPE: Emergency COMPLAINT: - POST OP PROBLEMS DIAGNOSES: - Old myocardial infarction - Encounter for surgical aftercare following surgery on the circulatory system - Heart failure, unspecified - Other assisted (current) drug therapy - Personal history of nicotine dependence - Presence of cardiac pacemaker 03/09/2018 18:46 [facility] TYPE: Emergency DIAGNOSES: - Syncope and collapse - Atrioventricular block, complete 03/09/2018 14:44 [facility] TYPE: Emergency COMPLAINT: - HEART BLOCK DIAGNOSES: - Old myocardial infarction - Heart failure, unspecified - Syncope and collapse - Unspecified atrial fibrillation - Chronic obstructive pulmonary disease, unspecified - Other assisted (current) drug therapy - Atrioventricular block, complete - Personal history of nicotine dependence INPATIENT VISIT TRACKING (12 MO.) 03/23/2018 12:47 [facility] TYPE: Medical Surgical COMPLAINT: - ACUTE KIDNEY INJURY DIAGNOSES: - medical terminologist (current) use of inhaled steroids - Personal history of nicotine dependence - Chronic obstructive pulmonary disease, unspecified - Orthostatic hypotension - Acute kidney failure, unspecified - Other assisted (current) drug therapy - Paroxysmal atrial fibrillation - Presence of coronary angioplasty implant and graft - Encounter for immunization - Old myocardial infarction - Dehydration - Atherosclerotic heart disease of [place] coronary artery without angina pectoris - Presence of automatic (implantable) cardiac defibrillator - medical terminologist (current) use of anticoagulants - Hyperlipidemia, unspecified - Chronic combined systolic (congestive) and diastolic (congestive) heart failure - Gout, unspecified 03/09/2018 18:46 [facility] TYPE: Cardiology DIAGNOSES: - Paroxysmal atrial fibrillation - Atrioventricular block, complete - Syncope and collapse [email or web address]
[2018-11-29] MEDS ORDERED: NITRIC ACID1 ML MISC (15:28)
[2018-11-29] MEDS ORDERED: PROBIOTIC1 EAC1 PO (15:28)
[2018-11-29] MEDS ORDERED: PERFOROMIS20 MCG/2 M INH (15:29)
--- NOTE | 2018-11-30 20:38 | EKG ---
[facility] [address] [place] [address] Signed Suspect unspecified pacemaker failure Ventricular-paced rhythm with premature supraventricular complexes Abnormal ECG No previous ECGs available Confirmed by KEVEN LOCO MD ([id number]) on 11/30/2018 8:38:22 PM Electronically Signed By: KEVEN LOCO MD 11/30/18 2038 PATIENT NAME: HUSSAIN GONZALEZ Electrocardiogram DATE OF : [birth year] PHYSICIAN: KEVEN LOCO MD REPORT #: [id number] REPORT IS CONFIDENTIAL AND NOT TO BE RELEASED WITHOUT AUTHORIZATION
== END 2018-11-29 19:34 | disposition home or self-care (01) ==
LOC: ED 15:00
PROC: 0S9D3ZZ Drainage of Left Knee Joint, Percutaneous Approach (ICD-10-PCS; principal; 2018-11-29)
DX: S83.92XA Sprain of unspecified site of left knee, initial encounter (principal); M25.462 Effusion, left knee; I25.2 Old myocardial infarction; I48.91 Unspecified atrial fibrillation; I50.9 Heart failure, unspecified; J44.9 Chronic obstructive pulmonary disease, unspecified; Z87.891 Personal history of nicotine dependence; Z95.5 Presence of coronary angioplasty implant and graft; Z88.1 Allergy status to other antibiotic agents; Z79.899 Other long term (current) drug therapy; W18.30XA Fall on same level, unspecified, initial encounter
CPT/HCPCS: 20610; 70450; 73560; 80053; 83735; 84484; 85025; 93005; 93010; 99284-25; J3301